=== PATIENT | male | born 1940 | race Caucasian/White ===

== ENCOUNTER → 2020-07-06 08:40 | Outpatient (REF) | payer MEDICARE, SELFPAY ==
[2020-07-06 11:01] LABS: AST(SGOT) 28 U/L (15-37); Alanine Aminotransfer ALT/SGPT 41 U/L (16-61); Cholesterol 153 mg/dL (200); High Density Lipoprotein 62 mg/dL; Triglycerides 62 mg/dL; Very Low Density Lipoprotein 12 mg/dL (5-40)
== END ==
LOC: OLS.BROOKB 08:40
PROVIDERS: PCP Family Medicine; Referring Provider Family Medicine; Visit Provider Family Medicine
DX: E78.5 Hyperlipidemia, unspecified (principal)
CPT/HCPCS: 80061; 84450; 84460

== ENCOUNTER → 2020-09-23 06:00 | Outpatient (REF) | payer MEDICARE, BC, SELFPAY ==
[2020-09-23 08:40] LABS: Hematocrit 47.8 % (40-54); Hemoglobin 14.8 g/dL (13.0-16.5); Mean Corpuscular Volume 96.8 fL (80-94); Mean Platelet Vol. 9.6 fl (6.2-12.0); Platelet Count 217 K/mm3 (150-450); RBC Distribution Width CV 13.3 % (11.6-14.6); RBC Distribution Width SD 47.6 fl (35.1-43.9); Red Blood Count 4.94 M/mm3 (4.6-6.2); White Blood Count 7.7 K/mm3 (4.4-11.0)
[2020-09-23 09:22] LABS: ALB/GLOB Ratio 1.1 RATIO (0.9-2.4); AST(SGOT) 26 U/L (15-37); Alanine Aminotransfer ALT/SGPT 47 U/L (16-61); Albumin, Serum 3.8 g/dL (3.2-5.0); Alkaline Phosphatase 84 U/L (45-117); Anion Gap 4 (5-15); BUN 16 mg/dL (7-18); BUN/Creat Ratio 16.8 RATIO (10-20); Calcium,Total 8.6 mg/dL (8.5-10.1); Chloride 108 mmol/L (98-107); Creatinine, Serum 0.95 mg/dL (0.70-1.30); EST Glomerular Filtration Rate 81 mL/min (>60); Est Glom Filt Rate - Afr Amer 98 mL/min (>60); Globulin 3.4 g/dL (2.2-4.2); Glucose 90 mg/dL (74-106); Potassium 3.4 mmol/L (3.5-5.1); Protein, Total 7.2 g/dL (6.4-8.2); Sodium Level 146 mmol/L (136-145); Thyroid Stim Hormone (TSH) 2.05 uIU/mL (0.358-3.74)
== END ==
LOC: OLS.BROOKB 06:00
PROVIDERS: PCP Family Medicine; Referring Provider Family Medicine; Visit Provider Family Medicine
DX: R63.4 Abnormal weight loss (principal); Z79.899 Other long term (current) drug therapy
CPT/HCPCS: 36415; 80053; 84443; 85027

== ENCOUNTER → 2020-11-18 12:48 | Outpatient (REF) | payer MEDICARE, BC, SELFPAY | PROVIDERS: PCP Family Medicine; Visit Provider Family Medicine | DX: S61.401A Unspecified open wound of right hand, initial encounter (principal) | CPT/HCPCS: 87070; 87077; 87186; 87205 ==

== ENCOUNTER → 2021-04-01 06:00 | Outpatient (REF) | payer MEDICARE, BC, SELFPAY ==
[2021-04-01 07:52] LABS: Hematocrit 42.6 % (40-54); Hemoglobin 13.5 g/dL (13.0-16.5); Mean Corp Hgb Conc 31.7 g/dL (32-36); Mean Corpuscular Hgb 30.1 pg (27.0-32.0); Mean Corpuscular Volume 94.9 fL (80-94); Mean Platelet Vol. 9.6 fl (6.2-12.0); Platelet Count 155 K/mm3 (150-450); RBC Distribution Width CV 13.9 % (11.6-14.6); RBC Distribution Width SD 48.3 fl (35.1-43.9); Red Blood Count 4.49 M/mm3 (4.6-6.2); White Blood Count 6.9 K/mm3 (4.4-11.0)
[2021-04-01 08:16] LABS: Valproic Acid (Depakene) Level 12 ug/mL (50-100)
== END ==
LOC: OLS.BROOKB 06:00
PROVIDERS: PCP Family Medicine; Referring Provider Family Medicine; Visit Provider Family Medicine
DX: Z79.899 Other long term (current) drug therapy (principal)
CPT/HCPCS: 36415; 80164; 85027

== ENCOUNTER → 2021-04-21 05:00 | Outpatient (REF) | payer MEDICARE, BC, SELFPAY ==
[2021-04-21 09:00] LABS: Hematocrit 41.1 % (40-54); Hemoglobin 13.2 g/dL (13.0-16.5); Mean Corp Hgb Conc 32.1 g/dL (32-36); Mean Corpuscular Hgb 30.1 pg (27.0-32.0); Mean Corpuscular Volume 93.6 fL (80-94); Mean Platelet Vol. 9.9 fl (6.2-12.0); Platelet Count 209 K/mm3 (150-450); RBC Distribution Width CV 13.5 % (11.6-14.6); RBC Distribution Width SD 46.7 fl (35.1-43.9); Red Blood Count 4.39 M/mm3 (4.6-6.2); White Blood Count 5.7 K/mm3 (4.4-11.0)
[2021-04-21 09:13] LABS: Valproic Acid (Depakene) Level 13 ug/mL (50-100)
[2021-04-21 09:14] LABS: ALB/GLOB Ratio 1.1 RATIO (0.9-2.4); AST(SGOT) 24 U/L (15-37); Alanine Aminotransfer ALT/SGPT 37 U/L (16-61); Albumin, Serum 3.3 g/dL (3.2-5.0); Alkaline Phosphatase 125 U/L (45-117); Anion Gap 8 (5-15); BUN 18 mg/dL (7-18); BUN/Creat Ratio 21.9 RATIO (10-20); Calcium,Total 8.4 mg/dL (8.5-10.1); Chloride 106 mmol/L (98-107); Creatinine, Serum 0.82 mg/dL (0.70-1.30); EST Glomerular Filtration Rate 96 mL/min (>60); Est Glom Filt Rate - Afr Amer 116 mL/min (>60); Glucose 89 mg/dL (74-106); Potassium 3.7 mmol/L (3.5-5.1); Protein, Total 6.3 g/dL (6.4-8.2); Sodium Level 144 mmol/L (136-145)
== END ==
LOC: OLS.BROOKB 05:00
PROVIDERS: PCP Family Medicine
DX: I10 Essential (primary) hypertension (principal); Z79.899 Other long term (current) drug therapy
CPT/HCPCS: 36415; 80053; 80164; 85027

== ENCOUNTER 2021-06-06 19:56 | Inpatient (IN) | payer MEDICARE, BC, SELFPAY ==
[2021-06-06 20:03] VITALS: BP 133/87; PULSE 115; RESP 27; TEMP 36.9; O2SAT 98; BMI 20.4
[2021-06-06 20:09] VITALS: BP 133/87; PULSE 111; RESP 14; TEMP 36.9; O2SAT 96
--- NOTE | 2021-06-06 20:39 | RAD_ITS ---
INDICATION: Cough EXAMINATION/TECHNIQUE: X-RAY - XR Chest 1 View COMPARISON: None. FINDINGS: The lungs are clear. Tortuous and calcified thoracic aorta. The heart is not enlarged. No pleural effusion or pneumothorax. Degenerative changes of the thoracic spine and shoulders. RAD/Chest 1 View (Portable) IMPRESSION: No acute radiographic abnormalities. Electronically Signed: Cristian Leung MD at 21:19 EDT Tel , Service support ,
--- NOTE | 2021-06-06 20:39 | EKG12_ITS ---
Test Reason : DYSRHYTHMIA Blood Pressure : / mmHG Vent. Rate : 095 BPM Atrial Rate : 096 BPM P-R Int : 116 ms QRS Dur : 084 ms QT Int : 366 ms P-R-T Axes : 027 074 027 degrees QTc Int : 459 ms Normal sinus rhythm ST & T wave abnormality, consider inferior ischemia Abnormal ECG Confirmed by TSERING MARTINEZ, RUBEN ([id number]), desk editor RYLEE FERRERA ([id number]) on 06/09/2021 10:26:43 AM Referred By: JUNIOR Confirmed By:RUBEN CAGLE MD
--- NOTE | 2021-06-06 20:42 | NURSING ---
NO OLD EKGS
[2021-06-06 20:53] LABS: Absolute Lymphocyte Count 1.88 X10^3/uL (0.83-4.51); Absolute Neutrophil Count 14.2 X10^3/uL (2.0-7.7); Basophil# 0.07 X10^3/uL; Basophil% 0.4 % (0-1); Eosinophil# 0.02 X10^3/uL; Eosinophils% 0.1 % (0-5); Hematocrit 52.9 % (40-54); Hemoglobin 16.2 g/dL (13.0-16.5); Lymphocyte # 1.88 X10^3/ul (0.83-4.51); Lymphocyte % 10.9 % (19-41); Mean Corp Hgb Conc 30.6 g/dL (32-36); Mean Corpuscular Hgb 30.2 pg (27.0-32.0); Mean Corpuscular Volume 98.5 fL (80-94); Mean Platelet Vol. 9.8 fl (6.2-12.0); Monocyte# 1.01 X10^3/uL; Monocyte% 5.9 % (0-10); NRBC Flagged by Analyzer 0 % (0-5); Neutrophil # 14.15 X10^3/uL (2.7-7.7); Neutrophil % 82.1 % (47-70); Platelet Count 397 K/mm3 (150-450); RBC Distribution Width CV 13.5 % (11.6-14.6); RBC Distribution Width SD 49.7 fl (35.1-43.9); Red Blood Count 5.37 M/mm3 (4.6-6.2); White Blood Count 17.2 K/mm3 (4.4-11.0)
[2021-06-06] MEDS: 0.9% Normal Saline 1,000 ML 1000 ML IV (21:00)
[2021-06-06 21:08] LABS: ALB/GLOB Ratio 0.6 RATIO (0.9-2.4); AST(SGOT) 19 U/L (15-37); Alanine Aminotransfer ALT/SGPT 26 U/L (16-61); Alkaline Phosphatase 99 U/L (45-117); Anion Gap 2 (5-15); BUN 33 mg/dL (7-18); BUN/Creat Ratio 23.4 RATIO (10-20); Calcium,Total 9.3 mg/dL (8.5-10.1); Chloride 121 mmol/L (98-107); Creatinine, Serum 1.41 mg/dL (0.70-1.30); EST Glomerular Filtration Rate 51 mL/min (>60); Est Glom Filt Rate - Afr Amer 62 mL/min (>60); Estimated Creatinine Clearance 40.31 ml/min; Globulin 4.8 g/dL (2.2-4.2); Glucose 117 mg/dL (74-106); Protein, Total 7.8 g/dL (6.4-8.2); Sodium Level 156 mmol/L (136-145)
[2021-06-06 21:25] VITALS: BP 130/94; PULSE 91; RESP 17; TEMP 37.6; O2SAT 94
[2021-06-06 21:40] LABS: Lactic Acid 1.6 mmol/L (0.4-1.9)
[2021-06-06 22:10] VITALS: BP 147/95; PULSE 101; PULSE 88; RESP 13; RESP 16; TEMP 37.4; O2SAT 95
[2021-06-06 22:14] LABS: Mucous, Urine 0 SEEN /hpf (<or=2+); Red Blood Cells-Urine 0 SEEN /hpf (0-5); Squamous Epithelial Cells - UA 0 SEEN /hpf (0-5)
--- NOTE | 2021-06-06 22:14 | ED.RN ---
NOT ABLE TO GET CATH PAST THE PROSTATE SO COUDE USED INSTEAD -- TEMP [facility] WILL NOT FUNCTION FOR TEMP MONITORING FOR THIS REASON.
[2021-06-06 22:21] LABS: Color, Urine Yellow (Yellow); Glucose, Dipstick Normal (Normal); Ketone-Dipstick 5 mg/dl (Negative); Leukocyte Esterase-Dipstick 500 /ul (Negative); Nitrite-Dipstick Positive (Negative); Occult Blood-Urine 150 /ul (Negative); Protein-Dipstick 30 mg/dl (Negative); Urine Bilirubin Dipstick Negative (Negative); Urine Clarity Cloudy (Clear); Urine Urobilinogen Normal (Normal)
--- NOTE | 2021-06-06 22:25 | EDS_ITS ---
HPI History of Present Illness Chief Complaint: Mental Status Change Informant: family Limited: dementia and stupor Onset/Context/Timing Onset: Days Context: Gradual Onset Timing: Continuous Quality: Decreased alertness, no p.o. intake Location: Nursing facility Current Severity: Severe Maximum Severity: Severe Narrative Narrative: According to the son he has not anything to eat in 3 days. His mental status has deteriorated. He does have mild memory impairment. He also has history of depression and allergic rhinitis. Based on medication he has hypercholesterolemia. Patient is unable to contribute with regards to his history. He is nonverbal. He will open his eyes. When son asked questions he did know his name. He did not know the date, month or year. Son states his memory impairment is more than just mild. Prior similar symptoms: No Recent Illness/Hospitalization: No PFSH [facility] Medical History Cognitive and behavioral changes Dysthymic disorder GERD (gastroesophageal reflux disease) Hypertension Home Medications acetylcysteine (bulk) [E-Aelbki-I-Cysteine] ea MISCELLANEOUS 06/06/21 [History Last Taken Unknown] atorvastatin 20 mg DAILY 06/06/21 [History Last Taken Unknown] divalproex 125 mg PO BID 06/06/21 [History Last Taken Unknown] donepezil 10 mg DAILY 06/06/21 [History Last Taken Unknown] finasteride 5 mg DAILY 06/06/21 [History Last Taken Unknown] hydroxyzine pamoate 25 mg PO BID PRN 06/06/21 [History Last Taken Unknown] loratadine 10 mg PO DAILY PRN 06/06/21 [History Last Taken Unknown] losartan 25 mg DAILY 06/06/21 [History Last Taken Unknown] melatonin 8 mg PO DAILY 06/06/21 [History Last Taken Unknown] mirtazapine 15 mg DAILY 06/06/21 [History Last Taken Unknown] oxybutynin chloride 5 mg PO DAILY 06/06/21 [History Last Taken Unknown] sertraline 150 mg DAILY 06/06/21 [History Last Taken Unknown] Allergy/AdvReac Type Severity Reaction Status Date / Time memantine [From Namenda] Allergy Other Verified 06/06/21 20:14 mushroom Allergy Other Verified 06/06/21 20:14 rivastigmine [From Exelon] Allergy Other Verified 06/06/21 20:14 unable to obtain Social History (Updated 06/06/21 @ 23:[address] Darien Flores MD) household members: other details: Nursing facility Smoking Status: Never smoker alcohol intake: former substance use type: does not use ROS ROS ED Review of Systems ROS Unobtainable: due to encephalopathy EXAM Physical Exam Const Vital Signs: 06/06/21 20:03 06/06/21 20:09 06/06/21 21:25 Temperature 98.4 F 98.4 F 99.6 F H Temperature Source Oral Temporal Oral Pulse Rate 115 H 111 H 91 Respiratory Rate 27 H 14 17 Blood Pressure 133/87 H 133/87 H 130/94 H Blood Pressure Mean 102 102 106 Pulse Ox 98 96 94 Oxygen Delivery Method Room Air Room Air Room Air 06/06/21 22:10 Temperature 99.4 F H Temperature Source Oral Pulse Rate 88 Respiratory Rate 16 Blood Pressure 147/95 H Blood Pressure Mean 112 Pulse Ox 95 Oxygen Delivery Method Room Air Positive well developed, cachectic and unkempt General Appearance ED: unkempt, well developed, cachectic and NAD Nutritional Appearance: cachectic HEENT Reports TM's clear and dry mucous membranes HEENT Narrative: Head is atraumatic normocephalic. Ears are normal. Nares patent. Posterior pharynx unremarkable. Tympanic Membrane ED: Yes TM's clear Mouth ED: Yes dry mucous membranes Mouth: dry mucous membranes Eyes PERRL and EOMs intact bilaterally General Eye ED: Negative for pale conjunctiva or scleral icterus Neck no lymphadenopathy, supple and no JVD Chest Wall inspection of chest normal Resp normal respiratory effort and clear to auscultation bilaterally Cardio regular rate, regular rhythm, S1 normal heart sound, S2 normal heart sound and no murmurs GI normal to inspection, nondistended, normoactive bowel sounds, non-tender and non-distended Palpation: soft Narrative: External genitalia appear normal. Back/Spine no CVA tenderness Cervical Spine: Negative for cervical spine tenderness Thoracic Spine / Upper Back: Negative for thoracic spinal tenderness or paraspinal muscle tenderness Extremity normal to inspection General Extremety ED: Negative for edema General Extremity: Negative for edema Neuro No oriented x3, CN's II-XII intact bilaterally and no sensory deficits noted Sensorium / Orientation: Negative for alert Motor Exam: strength 5/5 throughout Psych Negative for mental status grossly normal Psych Narrative: Depressed mental status Appearance: unkempt Skin no rashes or lesions noted and no wounds MDM MDM MDM Narrative Medical decision making narrative: Need to evaluate for metabolic versus infectious encephalopathy. Clinically patient is profoundly dehydrated. If there is no evidence of metabolic or infectious cephalopathy will obtain CT of the head. Lab Data Attestation: I reviewed the patient's lab results. Lab results narrative: White count is elevated with shift. Lactate is normal. Patient does have 2 sirs criteria. He has sepsis due to urinary tract infection. He also was profoundly dehydrated with a sodium of 156 and chloride of 121. Creatinine is elevated from baseline to 1.41 which is double normal creatinine or past creatinine. Patient was treated with IV Rocephin. He was given IV fluids. He will require admission. Labs: Laboratory Results - last 24 hr 06/06/21 06/06/21 06/06/21 20:10 20:10 20:57 WBC 17.2 H RBC 5.37 Hgb 16.2 Hct 52.9 MCV 98.5 H MCH 30.2 MCHC 30.6 L RDW Std Deviation 49.7 H RDW Coeff of Katey 13.5 Plt Count 397 MPV 9.8 Immature Gran % (Auto) 0.600 Neut % (Auto) 82.1 H Lymph % (Auto) 10.9 L [place] % (Auto) 5.9 Eos % (Auto) 0.1 Baso % (Auto) 0.4 Absolute Neuts (auto) 14.2 H Absolute Lymphs (auto) 1.88 Nucleated RBC % 0 Sodium 156 H Potassium 4.0 Chloride 121 H Carbon Dioxide 33.0 H Anion Gap 2 L BUN 33 H Creatinine 1.41 H Estim Creat Clear Calc 40.31 Est GFR (MDRD) Af Amer 62 Est GFR (MDRD) Non-Af 51 L BUN/Creatinine Ratio 23.4 H Glucose 117 H Lactic Acid 1.6 Calcium 9.3 Total Bilirubin 0.60 AST 19 ALT 26 Alkaline Phosphatase 99 Total Protein 7.8 Albumin 3.0 L Globulin 4.8 H Albumin/Globulin Ratio 0.6 L Urine Color Urine Clarity Urine pH Ur Specific [place] Urine Protein Urine Glucose (UA) Urine Ketones Urine Occult Blood Urine Nitrite Urine Bilirubin Urine Urobilinogen Ur Leukocyte Esterase Urine RBC Urine WBC Ur Squamous Epith Cells Urine Bacteria Urine Mucus 06/06/21 22:06 WBC RBC Hgb Hct MCV MCH MCHC RDW Std Deviation RDW Coeff of Katey Plt Count MPV Immature Gran % (Auto) Neut % (Auto) Lymph % (Auto) [place] % (Auto) Eos % (Auto) Baso % (Auto) Absolute Neuts (auto) Absolute Lymphs (auto) Nucleated RBC % Sodium Potassium Chloride Carbon Dioxide Anion Gap BUN Creatinine Estim Creat Clear Calc Est GFR (MDRD) Af Amer Est GFR (MDRD) Non-Af BUN/Creatinine Ratio Glucose Lactic Acid Calcium Total Bilirubin AST ALT Alkaline Phosphatase Total Protein Albumin Globulin Albumin/Globulin Ratio Urine Color Yellow Urine Clarity Cloudy Urine pH 5.0 Ur Specific [place] 1.020 Urine Protein 30 H Urine Glucose (UA) Normal Urine Ketones 5 H Urine Occult Blood 150 H Urine Nitrite Positive H Urine Bilirubin Negative Urine Urobilinogen Normal Ur Leukocyte Esterase 500 H Urine RBC 0 SEEN Urine WBC 25-50 SEEN Ur Squamous Epith Cells 0 SEEN Urine Bacteria 1+ Urine Mucus 0 SEEN Radiography Chest X-Ray - ED: Read by ED Physician, Heart, Mediastinum, Bony Structures and Chronic Changes Diagnostic Testing: Radiology Impression Chest X-Ray 06/06/21 20:39 IMPRESSION: No acute radiographic abnormalities. Electronically Signed: Cristian Leung MD at 21:19 EDT Tel , Service support , EKG Initial EKG: Attestation: I personally reviewed and interpreted this EKG as follows: Interpretation: Sinus Rhythm (Normal sinus rhythm with ventricular rate of 95. NE interval is 116 ms. Cures duration 84 ms. QT duration 366 ms. [place] is normal. There is nonspecific ST-T wave changes. There is also artifact.) Discharge Plan Dx/Rx/DC Orders Clinical Impression: Infectious encephalopathy, Acute metabolic encephalopathy, Urinary tract infection, Sepsis, Acute hypernatremia Disposition Disposition: Acute Care Hospital [facility]
[2021-06-06 22:34] LABS: White Blood Cells 25-50 SEEN /hpf (0-5)
[2021-06-06 22:35] LABS: Bacteria 1+ /hpf (None Seen)
[2021-06-06] MEDS: Ceftriaxone 1 GM/50 ML BAG IV (23:52)
[2021-06-06 23:53] VITALS: BP 153/62; PULSE 79; RESP 13; TEMP 37.2; O2SAT 97
--- NOTE | 2021-06-06 23:59 | HP.PCM_ITS ---
Documented by User: MICHELL Silva 06/07/21 00:51 HPI - General General Date of Admission: 06/07/21 Date of Service: 06/07/21 Chief Complaint: Weakness, increased confusion HPI Narrative JOAN CANALES, is a 80 M who presents with concerns of increased confusion and weakness. Patient son at bedside states patient has advanced age Alzheimer's but has been acting odd for him and has had a shuffling gait for the past couple days. Patient son is also concerned as patient has not had any p.o. intake of food or fluids. Son reports patient has lost a considerable amount of weight over the past 6 months but over the past 3 days has had no intake at all. Patient unable to contribute to health history or report current symptoms. [facility] Medical History Cognitive and behavioral changes Dysthymic disorder GERD (gastroesophageal reflux disease) Hypertension Home Medications acetylcysteine (bulk) [V-Pqaphb-B-Cysteine] ea MISCELLANEOUS 06/06/21 [History Last Taken Unknown] atorvastatin 20 mg DAILY 06/06/21 [History Last Taken Unknown] divalproex 125 mg PO BID 06/06/21 [History Last Taken Unknown] donepezil 10 mg DAILY 06/06/21 [History Last Taken Unknown] finasteride 5 mg DAILY 06/06/21 [History Last Taken Unknown] hydroxyzine pamoate 25 mg PO BID PRN 06/06/21 [History Last Taken Unknown] loratadine 10 mg PO DAILY PRN 06/06/21 [History Last Taken Unknown] losartan 25 mg DAILY 06/06/21 [History Last Taken Unknown] melatonin 8 mg PO DAILY 06/06/21 [History Last Taken Unknown] mirtazapine 15 mg DAILY 06/06/21 [History Last Taken Unknown] oxybutynin chloride 5 mg PO DAILY 06/06/21 [History Last Taken Unknown] sertraline 150 mg DAILY 06/06/21 [History Last Taken Unknown] Allergy/AdvReac Type Severity Reaction Status Date / Time memantine [From Namenda] Allergy Other Verified 06/06/21 20:14 mushroom Allergy Other Verified 06/06/21 20:14 rivastigmine [From Exelon] Allergy Other Verified 06/06/21 20:14 dairy AdvReac Other Uncoded 06/07/21 00:45 Social History household members: other details: Nursing facility Smoking Status: Never smoker alcohol intake: former substance use type: does not use ROS Review of Systems ROS Unobtainable: due to mental status Vital Signs Vital Signs Vital Signs: 06/06/21 20:03 06/06/21 20:09 06/06/21 21:25 Temperature 98.4 F 98.4 F 99.6 F H Temperature Source Oral Temporal Oral Pulse Rate 115 H 111 H 91 Respiratory Rate 27 H 14 17 Blood Pressure 133/87 H 133/87 H 130/94 H Blood Pressure Mean 102 102 106 Pulse Ox 98 96 94 Oxygen Delivery Method Room Air Room Air Room Air 06/06/21 22:10 Temperature 99.4 F H Temperature Source Oral Pulse Rate 88 Respiratory Rate 16 Blood Pressure 147/95 H Blood Pressure Mean 112 Pulse Ox 95 Oxygen Delivery Method Room Air Weight Weight: 150 lb 5.684 oz Body Mass Index (BMI) 20.4 Physical Exam Const no apparent distress Orientation / Consciousness: awake and oriented to person Exam Limitations: altered mental status HEENT normocephalic and head/scalp atraumatic Eyes conjunctivae normal and no scleral icterus Neck supple and no JVD General: trachea midline Resp normal respiratory effort, normal air movement and clear to auscultation bilaterally Cardio regular rate, regular rhythm, S1 normal heart sound, S2 normal heart sound and peripheral pulses 2+ throughout Rate: tachycardic GI normal to inspection, nondistended, normoactive bowel sounds, soft to palpation and non-tender Extremity normal capillary refill and no clubbing, cyanosis or edema General Extremity: no tenderness to palpation of joints or extremities Skin General Skin Exam: no breakdown and turgor normal Lesions: no lesions Rashes: no rashes Neuro no focal motor deficits and no sensory deficits noted Speech: speech abnormal Details: Positive for stuttering Motor Exam: general weakness Psych cooperative Activity / Motor Behavior: fidgetting Thought Process: confused Memory / Cognition: dementia Results Lab / Micro Data Result Diagrams: 06/06/21 20:10 06/06/21 20:10 Labs: Laboratory Results - last 24 hr 06/06/21 20:10: WBC 17.2 H, RBC 5.37, Hgb 16.2, Hct 52.9, MCV 98.5 H, MCH 30.2, MCHC 30.6 L, RDW Std Deviation 49.7 H, RDW Coeff of Katey 13.5, Plt Count 397, MPV 9.8, Immature Gran % (Auto) 0.600, Neut % (Auto) 82.1 H, Lymph % (Auto) 10.9 L, [place] % (Auto) 5.9, Eos % (Auto) 0.1, Baso % (Auto) 0.4, Absolute Neuts (auto) 14.2 H, Absolute Lymphs (auto) 1.88, Nucleated RBC % 0 06/06/21 20:10: Sodium 156 H, Potassium 4.0, Chloride 121 H, Carbon Dioxide 33.0 H, Anion Gap 2 L, BUN 33 H, Creatinine 1.41 H, Estim Creat Clear Calc 40.31, Est GFR (MDRD) Af Amer 62, Est GFR (MDRD) Non-Af 51 L, BUN/Creatinine Ratio 23.4 H, Glucose 117 H, Calcium 9.3, Total Bilirubin 0.60, AST 19, ALT 26, Alkaline Phosphatase 99, Total Protein 7.8, Albumin 3.0 L, Globulin 4.8 H, Albumin/Globulin Ratio 0.6 L 06/06/21 20:57: Lactic Acid 1.6 06/06/21 22:06: Urine Color Yellow, Urine Clarity Cloudy, Urine pH 5.0, Ur Specific [place] 1.020, Urine Protein 30 H, Urine Glucose (UA) Normal, Urine Ketones 5 H, Urine Occult Blood 150 H, Urine Nitrite Positive H, Urine Bilirubin Negative, Urine Urobilinogen Normal, Ur Leukocyte Esterase 500 H, Urine RBC 0 SEEN, Urine WBC 25-50 SEEN, Ur Squamous Epith Cells 0 SEEN, Urine Bacteria 1+, Urine Mucus 0 SEEN Radiology Impression Chest X-Ray 06/06/21 20:39 IMPRESSION: No acute radiographic abnormalities. Electronically Signed: Cristian Leung MD at 21:19 EDT Tel , Service support , Assessment & Plan Assessment/Plan (1) Urinary tract infection: QUALIFIERS: Hematuria presence: without hematuria Urinary tract infection type: site unspecified Qualified Code(s): N39.0 - Urinary tract infection, site not specified (2) Infectious encephalopathy: (3) Acute hypernatremia: (4) Sepsis: QUALIFIERS: Sepsis acute organ dysfunction status: unspecified Sepsis type: sepsis due to unspecified organism Qualified Code(s): A41.9 - Sepsis, unspecified organism PLAN: 1. Sepsis secondary to urinary tract infection -Admit to medical surgical -Patient received 1 L bolus in ER. will give second liter of normal saline then normal saline at 100 ml/hr. -Continue Rocephin patient received first dose in ER -CBC and BMP ordered daily -Urine culture pending -Intake and output ordered -PT, OT, ST ordered 2. Infectious encephalopathy -Due to patient son reporting difficulty swallowing we will keep patient n.p.o. -AC at bedtime blood sugar checks to monitor for hypoglycemia 3. Acute hypernatremia -Likely secondary to dehydration from urinary tract infection and decreased intake. -Will provide patient with IV fluid resuscitation per sepsis protocol and repeat BMP in a.m. 4. Hypertension -Continue losartan 5. Alzheimer's disease -Will continue home medication regimen -Per son report patient cognitively at baseline however motor function difficulty is abnormal for him. DVT prophylaxis-subcu Lovenox and SCDs This patient was seen by MICHELL Silva under the supervision of Dr. Brito. Documented by User: Dr. Jose G Brito MD 06/07/21 01:03 HPI - General General Date of Admission: 06/07/21 [facility] Medical History Cognitive and behavioral changes Dysthymic disorder GERD (gastroesophageal reflux disease) Hypertension Home Medications acetylcysteine (bulk) [K-Jzxmiz-C-Cysteine] ea MISCELLANEOUS 06/06/21 [History Last Taken Unknown] atorvastatin 20 mg DAILY 06/06/21 [History Last Taken Unknown] divalproex 125 mg PO BID 06/06/21 [History Last Taken Unknown] donepezil 10 mg DAILY 06/06/21 [History Last Taken Unknown] finasteride 5 mg DAILY 06/06/21 [History Last Taken Unknown] hydroxyzine pamoate 25 mg PO BID PRN 06/06/21 [History Last Taken Unknown] loratadine 10 mg PO DAILY PRN 06/06/21 [History Last Taken Unknown] losartan 25 mg DAILY 06/06/21 [History Last Taken Unknown] melatonin 8 mg PO DAILY 06/06/21 [History Last Taken Unknown] mirtazapine 15 mg DAILY 06/06/21 [History Last Taken Unknown] oxybutynin chloride 5 mg PO DAILY 06/06/21 [History Last Taken Unknown] sertraline 150 mg DAILY 06/06/21 [History Last Taken Unknown] Allergy/AdvReac Type Severity Reaction Status Date / Time memantine [From Namenda] Allergy Other Verified 06/06/21 20:14 mushroom Allergy Other Verified 06/06/21 20:14 rivastigmine [From Exelon] Allergy Other Verified 06/06/21 20:14 dairy AdvReac Other Uncoded 06/07/21 00:45 Social History household members: other details: Nursing facility Smoking Status: Never smoker alcohol intake: former substance use type: does not use Results Lab / Micro Data Result Diagrams: 06/06/21 20:10 06/06/21 20:10 Charges/Coding Addendum Addendum: Patient was seen and examined independently. I agree with assessment and plan by Mayra Morillo NP-C An 80-year-old male who lives at [facility] who presented with a 3-day history of not eating and lethargy. Reportedly patient has not been eating for the past 3 days. At baseline he has Alzheimer's dementia but mobile and jovial. However in the past 3 days patient's has not been interactive and he has stayed in bed all day. Physical exam: General: Well-nourished, well-developed, no acute distress Head: Normocephalic, atraumatic, no tenderness Eyes: PERRLA, EOMI ENT, no trauma, moist mucous membranes, no rhinorrhea Neck: Nontender, full range of motion, no spinal tenderness, deformities, step- off CVS: Regular rate and rhythm Respiratory no acute distress, clear to auscultation bilaterally, chest wall nontender, no wheezing Abdomen: Soft, nontender, nondistended, normal bowel sounds, no masses : Deferred Back: Nontender, no CVA tenderness, no midline spinal tenderness, deformities, step-offs Extremities: Nontender full range of motion, no trauma Skin: Normal color, no trauma, abrasions Neuro: Alert, confused; cranial nerves II through XII grossly intact. Psychiatry: Normal mood. Normal affect. Not depressed. Not anxious. Acute cystitis Patient met SIRS criteria with heart rate of more than 90; white count of 17.2. QSOFA is 1 for increased encephalopathy more than baseline. Lactic acid is less than 2. Urinalysis showed proteinuria; urine occult blood; nitrite and leukocyte Estrace. Urine bacteria is 1+. Review of previous records did not show any urine culture. Urine culture was obtained at the emergency department; follow. Ceftriaxone was started at the emergency department and continued. Trend CBC and BMP Acute dehydration Review of labs showed sodium of 156. BUN of 33. Creatinine of 1.41. Will hydrate with isotonic normal saline at this time. Trend BMP. Review of old records shows that his creatinine on 04/21/2021 was 0.82 and on 09/23/2020 creatinine was 0.95. Baseline creatinine around 0.9. BUN over creatinine is 23.4. Likely is prerenal from acute dehydration. IV fluid as above. Trend BMP. Avoid nephrotoxic's. AIDAN receptor ricardo. Hypertension Blood pressure is not within goal Losartan held secondary to POLO. As needed hydralazine ordered. Trend blood pressure and adjust blood pressure medications. DVT prophylaxis Subcutaneous Lovenox ordered. Visit Charges Inpatient E&M: 93172 Init Hosp L3
[2021-06-07] VITALS (8 sets, daily range): BP systolic 122–132; BP diastolic 71–108; PULSE 57–118; RESP 16–18; TEMP 36.4–37.2; O2SAT 94–98; BMI 19.6
[2021-06-07] MEDS: 0.9% Normal Saline 1,000 ML 999 ML IV (01:01)
[2021-06-07] MEDS: 0.9% Normal Saline 1,000 ML 100 ML IV (02:22)
[2021-06-07] MEDS: 0.9% Saline Lock 10 ML Syringe IV (02:48)
[2021-06-07 06:22] LABS: Absolute Lymphocyte Count 1.27 X10^3/uL (0.83-4.51); Absolute Neutrophil Count 11.1 X10^3/uL (2.0-7.7); Basophil# 0.05 X10^3/uL; Basophil% 0.4 % (0-1); Eosinophil# 0.02 X10^3/uL; Eosinophils% 0.1 % (0-5); Hematocrit 48.1 % (40-54); Hemoglobin 14.6 g/dL (13.0-16.5); Lymphocyte # 1.27 X10^3/ul (0.83-4.51); Lymphocyte % 9.5 % (19-41); Mean Corp Hgb Conc 30.4 g/dL (32-36); Mean Corpuscular Hgb 30.4 pg (27.0-32.0); Mean Platelet Vol. 9.6 fl (6.2-12.0); Monocyte# 0.86 X10^3/uL; Monocyte% 6.4 % (0-10); NRBC Flagged by Analyzer 0 % (0-5); Neutrophil # 11.09 X10^3/uL (2.7-7.7); Neutrophil % 83.1 % (47-70); Platelet Count 288 K/mm3 (150-450); RBC Distribution Width CV 13.4 % (11.6-14.6); RBC Distribution Width SD 50.1 fl (35.1-43.9); Red Blood Count 4.81 M/mm3 (4.6-6.2); White Blood Count 13.4 K/mm3 (4.4-11.0)
[2021-06-07 06:45] LABS: Anion Gap 3 (5-15); BUN 30 mg/dL (7-18); BUN/Creat Ratio 28.3 RATIO (10-20); Calcium,Total 8.4 mg/dL (8.5-10.1); Chloride 124 mmol/L (98-107); Creatinine, Serum 1.06 mg/dL (0.70-1.30); EST Glomerular Filtration Rate 71 mL/min (>60); Est Glom Filt Rate - Afr Amer 86 mL/min (>60); Estimated Creatinine Clearance 51.74 ml/min; Glucose 108 mg/dL (74-106); Potassium 3.8 mmol/L (3.5-5.1); Sodium Level 158 mmol/L (136-145)
--- NOTE | 2021-06-07 06:47 | NURSING ---
Blood glucose 108 from morning labs from 545. Did not stick patient for blood sugar, because labs were just drawn.
[2021-06-07 07:46] LABS: Bedside Glucose 101 mg/dL (70-110)
[2021-06-07 10:20] LABS: Anion Gap 2 (5-15); BUN 28 mg/dL (7-18); BUN/Creat Ratio 25.2 RATIO (10-20); Calcium,Total 8.6 mg/dL (8.5-10.1); Chloride 123 mmol/L (98-107); Creatinine, Serum 1.11 mg/dL (0.70-1.30); EST Glomerular Filtration Rate 68 mL/min (>60); Est Glom Filt Rate - Afr Amer 82 mL/min (>60); Estimated Creatinine Clearance 49.41 ml/min; Glucose 125 mg/dL (74-106); Potassium 4.1 mmol/L (3.5-5.1); Sodium Level 156 mmol/L (136-145)
[2021-06-07] MEDS: Sertraline 50 MG Tablet 150 MG PO (10:43)
[2021-06-07] MEDS: Tolterodine Tartrate 2 MG CAP.SA PO (10:44)
[2021-06-07] MEDS: Donepezil HCl 10 MG Tablet 20 MG PO (10:44)
[2021-06-07] MEDS: Finasteride 5 MG Tablet PO (10:45)
[2021-06-07] MEDS: Divalproex Sodium 125 MG Tablet PO ×2 (10:45→20:20)
[2021-06-07] MEDS: Enoxaparin 40 MG/0.4 ML Syringe SC (10:45)
--- NOTE | 2021-06-07 11:18 | CASEMGMT ---
Social Work Note Per electric meter tester questions. Pt has completed HCPOA and LW, haven't provided copies to [facility], and pt is able/unable to bring in copies. Danyelle Michaels INJECTION MAINTENANCE TECHNICIAN, MINE SURVEYOR
--- NOTE | 2021-06-07 11:23 | CASEMGMT ---
Addendum entered by Danyelle Michaels 06/07/21 11:55: SW in to speak with pt and pt's son Vincenzo present in room. Vincenzo confirms pt is from [facility] in their memory care unit. Vincenzo states it depends on pt's needs if pt will be returning to [facility] or if pt needs SNF. Vincenzo then states well the plan will be to return to [facility] while I look for other SNF's if pt needs that level of care. YUKO confirmed with Vincenzo that the plan for pt is to discharge back to [facility] from [facility]. Vincenzo confirms this plan. SW informed Vincenzo that this worker can provide him with list of SNF so Vincenzo can begin looking at SNF and Vincenzo agreeable to taking list. Vincenzo was provided a list of SNF providers including quality and resource use data and consistent with the patient?s preferred geographic region, medical needs, and insurance network. Plan: Return to [facility] Original Note: Social Work Note Pt is listed as being from [facility], is at [facility] for altered mental status. YUKO placed a call to [facility] and spoke with BERNABE Goins. Briseida states pt is in their memory care unit and is able to return when medically cleared. Pt will need a COVID test on day of discharge. YUKO asked Briseida if they have HCPOA/LW on file and could fax copies to this worker. Briseida states she is able to fax copies. YUKO faxed clinicals to [facility]. Plan: Return to [facility] when medically cleared Danyelle Michaels COMMISSARY PRODUCTION SUPERVISOR, CLINICAL INFORMATICS SPECIALIST
[2021-06-07 12:11] LABS: Bedside Glucose 137 mg/dL (70-110)
[2021-06-07 14:40] LABS: Anion Gap 0 (5-15); BUN 27 mg/dL (7-18); Chloride 121 mmol/L (98-107); EST Glomerular Filtration Rate 76 mL/min (>60); Est Glom Filt Rate - Afr Amer 93 mL/min (>60); Estimated Creatinine Clearance 54.85 ml/min; Glucose 112 mg/dL (74-106); Potassium 4.1 mmol/L (3.5-5.1); Sodium Level 154 mmol/L (136-145)
--- NOTE | 2021-06-07 15:16 | PCM.PN.HOSP ---
Subjective Subjective No issues overnight. Patient is lying in bed. I attempted to ask orientation questions to him and when I asked where he was there was a delayed response and he said thank you. Objective Data Objective Data Vital Signs: Vital Signs Temp Pulse Resp BP Pulse Ox 98.0 F 88 18 132/108 H 97 06/07/21 11:20 06/07/21 11:20 06/07/21 11:20 06/07/21 11:20 06/07/21 11:20 Oxygen Delivery Method Room Air Weight: 65.816 kg Body Mass Index (BMI) 19.6 Intake & Output: Intake and Output for Last 24 Hours 06/05/21 06/06/21 06/07/21 23:59 23:59 23:59 Intake Total 2536.67 / 2536.67 Output Total 400 / 400 Balance 2136.67 / 2136.67 Lab / Micro Data Result Diagrams: 06/07/21 05:46 06/07/21 14:20 Labs: Laboratory Results - last 24 hr 06/06/21 20:10: WBC 17.2 H, RBC 5.37, Hgb 16.2, Hct 52.9, MCV 98.5 H, MCH 30.2, MCHC 30.6 L, RDW Std Deviation 49.7 H, RDW Coeff of Katey 13.5, Plt Count 397, MPV 9.8, Immature Gran % (Auto) 0.600, Neut % (Auto) 82.1 H, Lymph % (Auto) 10.9 L, [place] % (Auto) 5.9, Eos % (Auto) 0.1, Baso % (Auto) 0.4, Absolute Neuts (auto) 14.2 H, Absolute Lymphs (auto) 1.88, Nucleated RBC % 0 06/06/21 20:10: Sodium 156 H, Potassium 4.0, Chloride 121 H, Carbon Dioxide 33.0 H, Anion Gap 2 L, BUN 33 H, Creatinine 1.41 H, Estim Creat Clear Calc 40.31, Est GFR (MDRD) Af Amer 62, Est GFR (MDRD) Non-Af 51 L, BUN/Creatinine Ratio 23.4 H, Glucose 117 H, Calcium 9.3, Total Bilirubin 0.60, AST 19, ALT 26, Alkaline Phosphatase 99, Total Protein 7.8, Albumin 3.0 L, Globulin 4.8 H, Albumin/Globulin Ratio 0.6 L 06/06/21 20:57: Lactic Acid 1.6 06/06/21 22:06: Urine Color Yellow, Urine Clarity Cloudy, Urine pH 5.0, Ur Specific [place] 1.020, Urine Protein 30 H, Urine Glucose (UA) Normal, Urine Ketones 5 H, Urine Occult Blood 150 H, Urine Nitrite Positive H, Urine Bilirubin Negative, Urine Urobilinogen Normal, Ur Leukocyte Esterase 500 H, Urine RBC 0 SEEN, Urine WBC 25-50 SEEN, Ur Squamous Epith Cells 0 SEEN, Urine Bacteria 1+, Urine Mucus 0 SEEN 06/07/21 05:46: WBC 13.4 H, RBC 4.81, Hgb 14.6, Hct 48.1, MCV 100.0 H, MCH 30.4, MCHC 30.4 L, RDW Std Deviation 50.1 H, RDW Coeff of Katey 13.4, Plt Count 288, MPV 9.6, Immature Gran % (Auto) 0.500, Neut % (Auto) 83.1 H, Lymph % (Auto) 9.5 L, [place] % (Auto) 6.4, Eos % (Auto) 0.1, Baso % (Auto) 0.4, Absolute Neuts (auto) 11.1 H, Absolute Lymphs (auto) 1.27, Nucleated RBC % 0 06/07/21 05:46: Sodium 158 H, Potassium 3.8, Chloride 124 H, Carbon Dioxide 31.0, Anion Gap 3 L, BUN 30 H, Creatinine 1.06, Estim Creat Clear Calc 51.74, Est GFR (MDRD) Af Amer 86, Est GFR (MDRD) Non-Af 71, BUN/Creatinine Ratio 28.3 H, Glucose 108 H, Calcium 8.4 L 06/07/21 07:38: POC Glucose 101 06/07/21 09:45: Sodium 156 H, Potassium 4.1, Chloride 123 H, Carbon Dioxide 31.0, Anion Gap 2 L, BUN 28 H, Creatinine 1.11, Estim Creat Clear Calc 49.41, Est GFR (MDRD) Af Amer 82, Est GFR (MDRD) Non-Af 68, BUN/Creatinine Ratio 25.2 H, Glucose 125 H, Calcium 8.6 06/07/21 12:04: POC Glucose 137 H 06/07/21 14:20: Sodium 154 H, Potassium 4.1, Chloride 121 H, Carbon Dioxide 33.0 H, Anion Gap 0 L, BUN 27 H, Creatinine 1.00, Estim Creat Clear Calc 54.85, Est GFR (MDRD) Af Amer 93, Est GFR (MDRD) Non-Af 76, BUN/Creatinine Ratio 27.0 H, Glucose 112 H, Calcium 9.0 Radiography Diagnostic Testing: Radiology Impression Chest X-Ray 06/06/21 20:39 IMPRESSION: No acute radiographic abnormalities. Electronically Signed: Cristian Leung MD at 21:19 EDT Tel , Service support , Physical Exam Const Constitutional Narrative: Thin elderly white male with temporal wasting and decreased lean muscle mass lying in bed, awake and interactive but unable to answer questions accurately or sustain conversation Exam Limitations: altered mental status HEENT head/scalp atraumatic HEENT Narrative: Mucous membranes are extremely dry Head and Scalp: normocephalic Mouth: dry mucous membranes Eyes PERRL, EOMs intact bilaterally and conjunctivae normal Neck no lymphadenopathy, supple and no JVD Cardio regular rate, regular rhythm, S1 normal heart sound, no rub, no gallops, no clicks and no JVD; Negative for no murmurs Cardio Narrative: Systolic murmur 3 out of 6 radiates to carotids, soft S2 GI normal to inspection, nondistended, normoactive bowel sounds, soft to palpation, non-tender and non-distended; Negative for hepatosplenomegaly GI Narrative: Thin Extremity no clubbing, cyanosis or edema Extremity Narrative: Significantly decreased lean muscle mass Peripheral Pulses: Yes pulses 2+ throughout Skin no rashes or lesions noted, no wounds, No skin turgor normal, no jaundice, no petechiae and no mottling Skin Narrative: Pale Neuro CN's II-XII intact bilaterally, moves all extremities and no focal motor deficits Neuro Narrative: Oriented only to self, generalized weakness Sensorium / Orientation: awake and alert Psych Psych Narrative: Patient is calm and pleasantly confused Assessment & Plan Assessment/Plan (1) Urinary tract infection: QUALIFIERS: Urinary tract infection type: site unspecified Hematuria presence: without hematuria Qualified Code(s): N39.0 - Urinary tract infection, site not specified (2) Acute metabolic encephalopathy: (3) Acute hypernatremia: PLAN: Acute cystitis/UTI -UA is very suggestive of urinary tract infection -Culture pending -Continue ceftriaxone and narrow antibiotics once sensitivities have resulted POLO -Resolved with hydration Acute hypernatremia/hyperchloremia -Seems consistent with severe acute dehydration -Documentation the patient has not been eating and drinking well -Suspect this is related to his progressive dementia -His overall poor prognostic indicator -IV fluids changed to D5W -BMP every 4 hours and watch rate of decline -Desired change in 24 hours is 12 mEq Hypertension -Continue home losartan Hyperlipidemia -Continue atorvastatin BPH -Continue finasteride -Would recommend discontinuing oxybutynin Depression -Continue home medications Dementia with behavioral disorder -Continue baseline medications -Given weight loss and decreased p.o. intake over the last 6 months we will consult palliative care -At the very least would recommend DNR CCA CODE STATUS -Patient may qualify for hospice depending on the severity of his dementia and his ability to take in p.o. liquid and food -Await palliative care consultation DVT prophylaxis -Continue enoxaparin CODE STATUS -Full code Charges/Coding Visit Charges Inpatient E&M: 63246 Subs Hosp L2
[2021-06-07 16:36] LABS: Bedside Glucose 122 mg/dL (70-110)
[2021-06-07] MEDS: Menthol/Lanolin/Calamine/Znox 113 GM Tube 1 APPLIC TOPICAL ×2 (16:53→20:19)
[2021-06-07 18:42] LABS: Anion Gap 1 (5-15); BUN 26 mg/dL (7-18); BUN/Creat Ratio 28.5 RATIO (10-20); Calcium,Total 8.4 mg/dL (8.5-10.1); Chloride 121 mmol/L (98-107); Creatinine, Serum 0.91 mg/dL (0.70-1.30); EST Glomerular Filtration Rate 85 mL/min (>60); Est Glom Filt Rate - Afr Amer 103 mL/min (>60); Estimated Creatinine Clearance 60.27 ml/min; Glucose 111 mg/dL (74-106); Potassium 3.7 mmol/L (3.5-5.1); Sodium Level 153 mmol/L (136-145)
[2021-06-07] MEDS: Atorvastatin Calcium 20 MG Tablet PO (20:19)
[2021-06-07] MEDS: Mirtazapine 15 MG Tablet PO (20:20)
[2021-06-07] MEDS: Ceftriaxone 1 GM/50 ML BAG IV (20:22)
[2021-06-07 22:32] LABS: Anion Gap 3 (5-15); BUN 22 mg/dL (7-18); BUN/Creat Ratio 25.1 RATIO (10-20); Calcium,Total 8.3 mg/dL (8.5-10.1); Chloride 118 mmol/L (98-107); Creatinine, Serum 0.88 mg/dL (0.70-1.30); EST Glomerular Filtration Rate 89 mL/min (>60); Est Glom Filt Rate - Afr Amer 108 mL/min (>60); Estimated Creatinine Clearance 62.33 ml/min; Glucose 118 mg/dL (74-106); Potassium 3.4 mmol/L (3.5-5.1); Sodium Level 151 mmol/L (136-145)
[2021-06-08 03:55] VITALS: BP 117/65; PULSE 62; RESP 16; TEMP 36.3; O2SAT 100
[2021-06-08 06:51] LABS: Bedside Glucose 100 mg/dL (70-110)
[2021-06-08 07:22] LABS: Absolute Neutrophil Count 7.9 X10^3/uL (2.0-7.7); Basophil# 0.05 X10^3/uL; Basophil% 0.5 % (0-1); Eosinophil# 0.11 X10^3/uL; Eosinophils% 1.1 % (0-5); Hematocrit 44.3 % (40-54); Hemoglobin 13.3 g/dL (13.0-16.5); Lymphocyte % 12.1 % (19-41); Mean Corpuscular Hgb 29.9 pg (27.0-32.0); Mean Corpuscular Volume 99.6 fL (80-94); Mean Platelet Vol. 9.7 fl (6.2-12.0); Monocyte# 0.63 X10^3/uL; Monocyte% 6.3 % (0-10); NRBC Flagged by Analyzer 0 % (0-5); Neutrophil # 7.86 X10^3/uL (2.7-7.7); Neutrophil % 79.2 % (47-70); Platelet Count 258 K/mm3 (150-450); RBC Distribution Width SD 48.3 fl (35.1-43.9); Red Blood Count 4.45 M/mm3 (4.6-6.2); White Blood Count 9.9 K/mm3 (4.4-11.0)
[2021-06-08 07:57] LABS: Anion Gap 0 (5-15); BUN 21 mg/dL (7-18); BUN/Creat Ratio 24.4 RATIO (10-20); Calcium,Total 8.4 mg/dL (8.5-10.1); Chloride 116 mmol/L (98-107); Creatinine, Serum 0.86 mg/dL (0.70-1.30); EST Glomerular Filtration Rate 91 mL/min (>60); Est Glom Filt Rate - Afr Amer 110 mL/min (>60); Estimated Creatinine Clearance 65.79 ml/min; Glucose 99 mg/dL (74-106); Potassium 3.4 mmol/L (3.5-5.1); Sodium Level 149 mmol/L (136-145)
[2021-06-08 08:08] VITALS: O2SAT 95
[2021-06-08 09:05] VITALS: BP 154/99; PULSE 99; RESP 18; TEMP 36.9; O2SAT 97
[2021-06-08] MEDS: Donepezil HCl 10 MG Tablet 20 MG PO (09:14)
[2021-06-08] MEDS: Sertraline 50 MG Tablet 150 MG PO (09:15)
[2021-06-08] MEDS: Divalproex Sodium 125 MG Tablet PO ×2 (09:15→22:23)
[2021-06-08] MEDS: Finasteride 5 MG Tablet PO (09:15)
[2021-06-08] MEDS: Enoxaparin 40 MG/0.4 ML Syringe SC (09:15)
[2021-06-08] MEDS: Menthol/Lanolin/Calamine/Znox 113 GM Tube 1 APPLIC TOPICAL ×2 (09:15→22:20)
[2021-06-08] MEDS: Potassium Chloride Oral Soln 20 MEQ/15 ML UDC 40 MEQ PO (09:56)
[2021-06-08 11:40] LABS: Bedside Glucose 125 mg/dL (70-110)
--- NOTE | 2021-06-08 13:10 | PCM.PN.HOSP ---
Subjective Subjective No issues overnight. His sodium is trending down nicely. Patient denies any issues but is fairly demented at baseline. Objective Data Objective Data Vital Signs: Vital Signs Temp Pulse Resp BP Pulse Ox 98.4 F 99 18 154/99 H 97 06/08/21 09:05 06/08/21 09:05 06/08/21 09:05 06/08/21 09:05 06/08/21 09:05 Oxygen Delivery Method Room Air Weight: 67.9 kg Body Mass Index (BMI) 19.6 Intake & Output: Intake and Output for Last 24 Hours 06/06/21 06/07/21 06/08/21 23:59 23:59 23:59 Intake Total 4195.42 / 4195.42 1860 / 1860 Output Total 950 / 1300 950 / 950 Balance 3245.42 / 2895.42 910 / 910 Lab / Micro Data Result Diagrams: 06/08/21 06:45 06/08/21 06:45 Labs: Laboratory Results - last 24 hr 06/07/21 14:20: Sodium 154 H, Potassium 4.1, Chloride 121 H, Carbon Dioxide 33.0 H, Anion Gap 0 L, BUN 27 H, Creatinine 1.00, Estim Creat Clear Calc 54.85, Est GFR (MDRD) Af Amer 93, Est GFR (MDRD) Non-Af 76, BUN/Creatinine Ratio 27.0 H, Glucose 112 H, Calcium 9.0 06/07/21 16:30: POC Glucose 122 H 06/07/21 17:50: Sodium 153 H, Potassium 3.7, Chloride 121 H, Carbon Dioxide 31.0, Anion Gap 1 L, BUN 26 H, Creatinine 0.91, Estim Creat Clear Calc 60.27, Est GFR (MDRD) Af Amer 103, Est GFR (MDRD) Non-Af 85, BUN/Creatinine Ratio 28.5 H, Glucose 111 H, Calcium 8.4 L 06/07/21 21:50: Sodium 151 H, Potassium 3.4 L, Chloride 118 H, Carbon Dioxide 30.0, Anion Gap 3 L, BUN 22 H, Creatinine 0.88, Estim Creat Clear Calc 62.33, Est GFR (MDRD) Af Amer 108, Est GFR (MDRD) Non-Af 89, BUN/Creatinine Ratio 25.1 H, Glucose 118 H, Calcium 8.3 L 06/08/21 06:26: POC Glucose 100 06/08/21 06:45: WBC 9.9, RBC 4.45 L, Hgb 13.3, Hct 44.3, MCV 99.6 H, MCH 29.9, MCHC 30.0 L, RDW Std Deviation 48.3 H, RDW Coeff of Katey 13.0, Plt Count 258, MPV 9.7, Immature Gran % (Auto) 0.800, Neut % (Auto) 79.2 H, Lymph % (Auto) 12.1 L, [place] % (Auto) 6.3, Eos % (Auto) 1.1, Baso % (Auto) 0.5, Absolute Neuts (auto) 7.9 H, Absolute Lymphs (auto) 1.20, Nucleated RBC % 0 06/08/21 06:45: Sodium 149 H, Potassium 3.4 L, Chloride 116 H, Carbon Dioxide 33.0 H, Anion Gap 0 L, BUN 21 H, Creatinine 0.86, Estim Creat Clear Calc 65.79, Est GFR (MDRD) Af Amer 110, Est GFR (MDRD) Non-Af 91, BUN/Creatinine Ratio 24.4 H, Glucose 99, Calcium 8.4 L 06/08/21 11:22: POC Glucose 125 H Micro: Microbiology 06/06/21 22:06 Urine Catheter - Savage Urine Culture - Preliminary Presumptive E. coli Physical Exam Const no apparent distress Constitutional Narrative: Thin elderly white male with temporal wasting and decreased lean muscle mass lying in bed, awake and interactive but unable to answer questions accurately or sustain conversation, therapy services at the bedside and he is willingly participating without any issues Orientation / Consciousness: awake and oriented to person Exam Limitations: altered mental status HEENT normocephalic and head/scalp atraumatic Head and Scalp: normocephalic Eyes no scleral icterus Neck General: trachea midline Resp normal respiratory effort, normal air movement, no retractions, no use of accessory muscles and clear to auscultation bilaterally Cardio regular rate, regular rhythm, S1 normal heart sound, S2 normal heart sound, no rub, no gallops, no clicks, no JVD and peripheral pulses 2+ throughout; Negative for no murmurs Cardio Narrative: Systolic murmur 3 out of 6 radiates to carotids, soft S2 Rate: tachycardic GI normal to inspection, nondistended, normoactive bowel sounds, soft to palpation, non-tender and non-distended; Negative for hepatosplenomegaly GI Narrative: Thin scaphoid abdomen Extremity normal capillary refill and no clubbing, cyanosis or edema Extremity Narrative: Significantly decreased lean muscle mass General Extremity: no tenderness to palpation of joints or extremities Skin skin turgor normal General Skin Exam: no breakdown and turgor normal Lesions: no lesions Rashes: no rashes Neuro moves all extremities and no focal motor deficits Neuro Narrative: Oriented only to self, generalized weakness Sensorium / Orientation: awake and alert Speech: speech abnormal Details: Positive for stuttering Motor Exam: general weakness Psych cooperative Psych Narrative: Patient is calm and pleasantly confused Activity / Motor Behavior: fidgetting Thought Process: confused Memory / Cognition: dementia Assessment & Plan Assessment/Plan (1) Urinary tract infection: QUALIFIERS: Urinary tract infection type: site unspecified Hematuria presence: without hematuria Qualified Code(s): N39.0 - Urinary tract infection, site not specified (2) Acute metabolic encephalopathy: (3) Acute hypernatremia: PLAN: Acute cystitis/UTI -UA is very suggestive of urinary tract infection -Culture is reporting out presumptive E. coli at this time -Sensitivities still pending -Continue ceftriaxone and narrow antibiotics once sensitivities have resulted POLO -Resolved with hydration Acute hypernatremia/hyperchloremia -Seems consistent with severe acute dehydration -Documentation the patient has not been eating and drinking well -Suspect this is related to his progressive dementia -His overall poor prognostic indicator -Continue D5W and increase to 100 cc/h -Sodium is now 149 from 158 on admission -Rate of drop is appropriate -Repeat BMP in a.m. Hypokalemia -P.o. liquid potassium -Repeat BMP in a.m. -Check a.m. mag level Hypertension -Continue home losartan Hyperlipidemia -Continue atorvastatin BPH -Continue finasteride -Would recommend discontinuing oxybutynin Depression -Continue home medications Dementia with behavioral disorder -Continue baseline medications -Given weight loss and decreased p.o. intake over the last 6 months we will consult palliative care -At the very least would recommend DNR CCA CODE STATUS -Patient may qualify for hospice depending on the severity of his dementia and his ability to take in p.o. liquid and food -Still awaiting palliative care consultation DVT prophylaxis -Continue enoxaparin CODE STATUS -Full code Charges/Coding Visit Charges Inpatient E&M: 53064 Subs Hosp L2
--- NOTE | 2021-06-08 14:08 | CASEMGMT ---
Addendum entered by Danyelle Michaels 06/08/21 15:13: YUKO updated that plan is for pt to admit to TCU with Palliative Care, likely tomorrow. YUKO placed a call to [facility] with TCU and left message of likely discharge tomorrow. SW updated Vincenzo. Addendum entered by Danyelle Michaels 06/08/21 14:38: YUKO updated that pt's family is requesting to speak to this worker. SW in to speak with pt. Pt's son Vincenzo present in room. Vincenzo asked about pt initially going to assisted for short term rehabilitation. Vincenzo states first choice would be [facility] TCU. YUKO informed Vincenzo that this worker will make referral to TCU. Vincenzo states understanding. YUKO placed a call to [facility] with TCU and provided referral. Plan: TCU Original Note: Social Work Note YUKO faxed updated clinicals to [facility]. Plan: Return to [facility] once medically cleared Danyelle Michaels MANAGER CHANNEL, BENCH ASSEMBLER OPERATOR
--- NOTE | 2021-06-08 14:26 | CON.PCM.PA_ITS ---
Assessment & Plan Assessment/Plan (1) Dementia: QUALIFIERS: Dementia type: unspecified type Dementia behavioral disturbance: with behavioral disturbance Qualified Code(s): F03.91 - Unspecified dementia with behavioral disturbance (2) Unintended weight loss: (3) Acute metabolic encephalopathy: (4) Urinary tract infection: QUALIFIERS: Urinary tract infection type: site unspecified Hematuria presence: without hematuria Qualified Code(s): N39.0 - Urinary tract infection, site not specified (5) Acute hypernatremia: PLAN: 80-year-old male with dementia, admitted to the hospital for acute metabolic encephalopathy and UTI, hypernatremia and hyperchloremia, seen today for palliative care consultation secondary to progressive decline in functional status and dementia. 1. Dementia: He appears to be a FAST stage 6e according to information from son and medical record. Had significant weight loss in the past 1 year and is incontinent. Poor oral intake overall. Still ambulatory. Patient is hospice appropriate, did discuss at length with his son. He has decided to have the patient go to [facility] for [facility]hab, then back to [facility] under palliative care, however is fully expecting patient to be admitted to hospice within 6 months to a year. If patient returns to [facility] on hospice, patient would be private pay. Son states patient does have the means, however they would prefer palliative at this time. Will follow patient closely while at [facility]. 2. Unintended weight loss: Likely secondary to #1. Requires frequent cueing for oral intake. I suspect he will decline rapidly and quite possibly end up back in the hospital with dehydration. 3. UTI/acute metabolic encephalopathy/hypernatremia/hyperchloremia: Complicates overall care and management, patient does have a poor prognosis overall and suspected life expectancy of less than 6 months, especially given his rapid decline in the last few months. Thank you for the opportunity to participate in this patient's care, please do not hesitate to contact [facility] with any further questions or concerns. Palliative direct line is [phone]. We will follow up with son. Greater than 50% of F2F visit dedicated to education and counseling of palliative care services vs hospice services, medications, comorbid conditions, potential assistance with management, and plan of care moving forward. Start time: 1426 End time: 1534 HPI Consult Data Date of Consult: 06/08/21 HPI Narrative HPI Narrative: JOAN CANALES, is a 80 M who presented to [facility] 06/06/2021 from [facility] memory care unit with altered mental status and lethargy. Patient has been declining and has not had any oral intake in 3 days. His gait has changed to shuffling and he had been acting more confused than his baseline. Patient has also been losing weight. History of Alzheimer's dementia. His son was concerned so patient brought by squad to the ED for evaluation. Chest x-ray showed nothing acute. Patient did have a leukocytosis at 17,200. Urinalysis consistent with UTI, patient was started on antibiotics and admitted for further evaluation and management. He did have an acute hypernatremia/hyperchloremia, as well as POLO. He was given IV fluids. Urine culture presumptive E. coli. Palliative care consulted due to his overall decline with oral intake, ADLs, mobility, and dementia diagnosis. There is a question whether the patient is hospice appropriate. Today, patient is overall improved. His mentation remains the same. Sodium is down to 149 from 156 over the last 2 days. Chloride of 116 from 124. Home medications for his dementia include donepezil, mirtazapine. Patient seen and evaluated. He is sitting up in the chair taking a few bites of food. It appears his lunch is mechanical soft consistency. Son is present during evaluation and reports patient has been in a group home for approximately 3 years now. He was at a facility in [place], and has been at [facility] in the memory care unit for a year and a half. Patient has been declining significantly over the past year. He is still ambulatory, otherwise has significant deficits. He wanders a lot into other patient's rooms and puts on their clothes and uses their belongings. Patient urinates in the hallways at times. Most of the time, he is incontinent of urine and stool. He wears an attends. Son estimates he eats less than 50% of meals every day, needs frequent cueing for oral intake. Patient can still feed himself. He has been dehydrated multiple times according to the son and has frequent antibiotics due to cellulitis. Son reports he picks scabs and they become infected. Has a history of MRSA. Patient has also lost over 60 pounds in the last 1 year. He has significant muscle atrophy. Son reports patient escaped from [facility] at one point and was found by the police at a bar. There is a history of heavy drinking, mostly bourbon. Patient's of cancer about 4 years ago. Apparently, the son and daughter were unaware of the severity of patient's dementia until right before their mother . She was able to hide most of his confusion from the family. This is why the patient had to go into a facility as his kids were unable to provide 24/7 care to him. No N/V/D. Son reports chronic GERD and belching, sometimes hiccups. No issues with constipation. No history of chronic pain. No shortness of breath or chest pain. No visual changes. No dysuria. Again, does have incontinence but baseline. [facility] Medical History Alcoholism Cognitive and behavioral changes Dysthymic disorder GERD (gastroesophageal reflux disease) Hypertension Home Medications atorvastatin 20 mg PO QHS 06/06/21 [History Last Taken 06/05/21] divalproex 125 mg PO BID 06/06/21 [History Last Taken 06/06/21] donepezil 20 mg PO DAILY 06/06/21 [History Last Taken 06/06/21] finasteride 5 mg PO DAILY 06/06/21 [History Last Taken 06/06/21] hydroxyzine pamoate 25 mg PO BID PRN 06/06/21 [History Last Taken 06/05/21] loratadine 10 mg PO DAILY PRN 06/06/21 [History Last Taken Unknown] losartan 25 mg PO DAILY 06/06/21 [History Last Taken 06/06/21] melatonin 8 mg PO QHS 06/06/21 [History Last Taken 06/05/21] mirtazapine 15 mg PO QHS 06/06/21 [History Last Taken 06/05/21] oxybutynin chloride 5 mg PO DAILY 06/06/21 [History Last Taken 06/06/21] sertraline 150 mg PO DAILY 06/06/21 [History Last Taken 06/06/21] J-Zawtck-I-Cysteine 600 mg PO/SL BID 06/07/21 [History Last Taken 06/06/21] Allergy/AdvReac Type Severity Reaction Status Date / Time memantine [From Namenda] Allergy Other Verified 06/08/21 14:30 mushroom Allergy Other Verified 06/08/21 14:30 rivastigmine [From Exelon] Allergy Other Verified 06/08/21 14:30 dairy AdvReac Other Uncoded 06/08/21 14:30 Social History household members: other details: Nursing facility Smoking Status: Never smoker alcohol intake: former substance use type: does not use ROS ROS Narrative Review of systems otherwise negative from a constitutional, HEENT, respiratory, cardiovascular, GI, genitourinary, musculoskeletal, skin, neurologic, psychiatric and hematologic system unless stated above. Physical Exam Const alert and no apparent distress General Appearance: cooperative Orientation / Consciousness: Negative for oriented to person, oriented to place or oriented to time Nutritional Appearance: cachectic HEENT normocephalic and head/scalp atraumatic Neck supple General: trachea midline Lymph Lymphatic: no lymphadenopathy noted Resp normal respiratory effort and normal air movement Effort and Inspection: able to speak in complete sentences and symmetric chest movement Auscultation: clear to auscultation bilaterally and diminished lung sounds; Negative for rales, rhonchi or wheezes Cardio regular rate, regular rhythm, S1 normal heart sound and S2 normal heart sound Extremity no clubbing, cyanosis or edema Extremity Narrative: Significant muscle atrophy Skin Skin Narrative: There is a dressing to the right forearm. Neuro no focal motor deficits Neuro Narrative: Limited exam secondary to cognitive status. Able to follow some commands but inappropriate responses verbally Psych cooperative Psych Narrative: Impulsive Attitude: calm Memory / Cognition: memory grossly impaired
[2021-06-08 15:00] VITALS: BP 105/52; PULSE 72; RESP 18; TEMP 36.7; O2SAT 96
[2021-06-08 16:50] LABS: Bedside Glucose 112 mg/dL (70-110)
[2021-06-08 20:35] VITALS: BP 143/63; PULSE 55; RESP 18; TEMP 37; O2SAT 98
[2021-06-08] MEDS: Ceftriaxone 1 GM/50 ML BAG IV (22:21)
[2021-06-08] MEDS: Mirtazapine 15 MG Tablet PO (22:24)
[2021-06-08] MEDS: Atorvastatin Calcium 20 MG Tablet PO (22:24)
[2021-06-09 04:40] VITALS: BP 144/78; PULSE 90; RESP 16; TEMP 36.9; O2SAT 97
[2021-06-09 07:17] LABS: Anion Gap 3 (5-15); BUN 11 mg/dL (7-18); BUN/Creat Ratio 16.9 RATIO (10-20); Calcium,Total 7.8 mg/dL (8.5-10.1); Chloride 110 mmol/L (98-107); Creatinine, Serum 0.65 mg/dL (0.70-1.30); EST Glomerular Filtration Rate 125 mL/min (>60); Est Glom Filt Rate - Afr Amer 151 mL/min (>60); Estimated Creatinine Clearance 56.58 ml/min; Glucose 97 mg/dL (74-106); Potassium 3.3 mmol/L (3.5-5.1); Sodium Level 143 mmol/L (136-145)
[2021-06-09 07:43] VITALS: O2SAT 96
[2021-06-09 08:59] VITALS: BP 104/75; PULSE 73; RESP 18; TEMP 36.8; O2SAT 100
[2021-06-09] MEDS: Divalproex Sodium 125 MG Tablet PO (09:05)
[2021-06-09] MEDS: Donepezil HCl 10 MG Tablet 20 MG PO (09:05)
[2021-06-09] MEDS: Enoxaparin 40 MG/0.4 ML Syringe SC (09:05)
[2021-06-09] MEDS: Finasteride 5 MG Tablet PO (09:05)
[2021-06-09] MEDS: Sertraline 50 MG Tablet 150 MG PO (09:05)
[2021-06-09] MEDS: Menthol/Lanolin/Calamine/Znox 113 GM Tube 1 APPLIC TOPICAL (09:09)
[2021-06-09] MEDS: Potassium Chloride Oral Soln 20 MEQ/15 ML UDC 80 MEQ PO (09:11)
--- NOTE | 2021-06-09 10:04 | CASEMGMT ---
Addendum entered by Danyelle Michaels 06/09/21 14:32: YUKO spoke with RN, pt's son was at [facility] earlier today, aware the tentative plan was for pt to discharge to TCU today. YUKO placed a call to pt's son Vincenzo and left message regarding discharge. Plan: TCU today Original Note: Social Work Note Pt should discharge to TCU today. YUKO placed a call to Libby with TCU and updated her. Plan: TCU today Danyelle Michaels [address]RE[address] LIGHT REPAIRER HELPER, [employer] PATROL OFFICER
--- NOTE | 2021-06-09 12:21 | DS.PCM_ITS ---
Providers Date of Admission: 06/07/21 Primary Care Physician: Maritza Johnson MD Consultations 06/07/21 07:13 Consult: Hospice / Palliative Care Routine Consulting Provider: [facility] Reason for Consult: dementia EMERGENT Consult: No MD Notified: Yes Date Notified: 06/07/21 Time Notified: 09:15 Method of Notification: office Reason For Visit: MENTAL STATUS CHANGE Diagnosis Discharge Diagnosis (1) Dementia: Status: Acute Code(s): F03.90 - Unspecified dementia without behavioral disturbance Qualifiers: Dementia behavioral disturbance: with behavioral disturbance Dementia type: unspecified type Qualified Code(s): F03.91 - Unspecified dementia with behavioral disturbance (2) Unintended weight loss: Status: Acute Code(s): R63.4 - Abnormal weight loss (3) Acute metabolic encephalopathy: Status: Acute Code(s): G93.41 - Metabolic encephalopathy (4) Urinary tract infection: Status: Acute Code(s): N39.0 - Urinary tract infection, site not specified Qualifiers: Hematuria presence: without hematuria Urinary tract infection type: site unspecified Qualified Code(s): N39.0 - Urinary tract infection, site not specified (5) Acute hypernatremia: Status: Acute Code(s): E87.0 - Hyperosmolality and hypernatremia Medications at Discharge Home Medications atorvastatin 20 mg PO QHS 06/06/21 divalproex 125 mg PO BID 06/06/21 donepezil 20 mg PO DAILY 06/06/21 finasteride 5 mg PO DAILY 06/06/21 hydroxyzine pamoate 25 mg PO BID PRN 06/06/21 loratadine 10 mg PO DAILY PRN 06/06/21 losartan 25 mg PO DAILY 06/06/21 melatonin 8 mg PO QHS 06/06/21 mirtazapine 15 mg PO QHS 06/06/21 oxybutynin chloride 5 mg PO DAILY 06/06/21 sertraline 150 mg PO DAILY 06/06/21 A-Fbbwfj-C-Cysteine 600 mg PO/SL BID 06/07/21 ciprofloxacin HCl [Cipro] 500 mg PO BID #16 tab 06/09/21 Hospital Course Operations None Procedures None Summary of Care Provided Minutes Spent on Discharge: 39 Hospital Course: Mr. Anderson is an 80-year-old male with a history of Alzheimer's dementia who lives in a memory unit who presented to the emergency department [facility] on 06/07/2021 with complaints of weakness and increased confusion. He presented with his son on admission who gave his hi story. He noted that his father had progressing Alzheimer's but noted he had been acting odd even when compared to his baseline recently and has had a shuffling gait for the past few days prior to admission. His oral intake had been extremely poor. On admission the son reported a significant weight loss in the last 6 months but reported in the last 3 days prior to mission he had no oral intake at all. On admission his vital signs were stable. His CBC showed a mild white count elevation. His BMP showed a sodium of 158 a chloride of 124 a BUN of 30 and a serum creatinine of 1.06. His UA was significant and consistent with a UTI. He was admitted to the general medical floor and placed on IV fluids. He was initially placed on normal saline but did not have a significant drop therefore he was changed to free water with D5W. We were able to slowly lower his serum sodium within goal rates until the day of discharge where he had a sodium of 143. His serum creatinine had normalized to his baseline. He had persistent issues with hypokalemia which were addressed with potassium supplementation. His magnesium was assessed and this was within normal limits. I suspect his total body potassium was extremely low. He was seen by palliative care during his hospitalization is based on discussion with his family this has been progressively ongoing and that his oral intake and weight loss are poor prognostic indicators with his Alzheimer's disease. He is hospice appropriate at this time and this was discussed at length with his son. Currently they have decided to move the patient to CCU for some rehab in the [facility] under palliative care to his memory unit with the expectation that he will need transition to hospice within the next 6 months to a year. His urine culture was positive for E. coli which was resistant to ampicillin and amp sulbactam. During his hospital course he was treated with ceftriaxone which had good susceptibility. He was discharged on ciprofloxacin 500 mg p.o. twice daily for another 8 days to complete a 10-day course. He was discharged to TCU in stable condition. Discharge diagnoses Sepsis secondary to UTI E. coli urinary tract infection Hypernatremia Hyperchloremia Hypomagnesemia POLO Hypertension Hyperlipidemia Dementia with behavioral disorder Depression Weight loss Failure to thrive in the adult Physical Exam Const no apparent distress Constitutional Narrative: Elderly white male with baseline confusion alert and oriented only to himself, sitting up in a chair with a deputy director of nursing at the bedside eating breakfast, appears well General Appearance: cooperative and comfortable Orientation / Consciousness: awake and oriented to person Exam Limitations: altered mental status HEENT normocephalic, head/scalp atraumatic and moist oral mucous membranes HEENT Narrative: Poor dentition, Mallampati 2 Eyes PERRL, EOMs intact bilaterally and no scleral icterus Neck no lymphadenopathy, supple and no JVD General: trachea midline Resp normal respiratory effort, normal air movement, no retractions, no use of accessory muscles and clear to auscultation bilaterally Cardio regular rate, regular rhythm, S1 normal heart sound, S2 normal heart sound, no rub, no gallops, no clicks, no JVD and peripheral pulses 2+ throughout; Negative for no murmurs Rate: tachycardic GI normal to inspection, nondistended, normoactive bowel sounds, soft to palpation, non-tender and non-distended; Negative for hepatosplenomegaly Extremity normal capillary refill and no clubbing, cyanosis or edema Extremity Narrative: Significant decrease in lean muscle mass General Extremity: no tenderness to palpation of joints or extremities Skin no rashes or lesions noted, no wounds, skin turgor normal and no jaundice General Skin Exam: no breakdown and turgor normal Lesions: no lesions Rashes: no rashes Neuro CN's II-XII intact bilaterally, moves all extremities and no focal motor deficits Neuro Narrative: Extremely confused Sensorium / Orientation: awake and alert Speech: speech abnormal Details: Positive for stuttering Motor Exam: general weakness Psych cooperative Psych Narrative: Very pleasant Activity / Motor Behavior: fidgetting Thought Process: confused Memory / Cognition: dementia Weight / BMI Weight Weight: 67.9 kg Body Mass Index (BMI) 19.6 ABG / Lab / Microbiology Data Result Diagrams: 06/08/21 06:45 06/09/21 05:50 Laboratory: Laboratory Results - last 24 hr 06/08/21 16:37: POC Glucose 112 H 06/09/21 05:50: Sodium 143, Potassium 3.3 L, Chloride 110 H, Carbon Dioxide 30.0, Anion Gap 3 L, BUN 11, Creatinine 0.65 L, Estim Creat Clear Calc 56.58, Est GFR (MDRD) Af Amer 151, Est GFR (MDRD) Non-Af 125, BUN/Creatinine Ratio 16.9, Glucose 97, Calcium 7.8 L 06/09/21 05:50: Magnesium 2.0 Microbiology: Microbiology 06/09/21 10:45 Nasal Secretion SARS-CoV-2 Antigen (Rapid) - Final 06/06/21 22:06 Urine Catheter - Savage Urine Culture - Final Presumptive E. coli Meaningful Use Info Meaningful Use Diagnoses (Choose all that apply): None applicable Discharge Plan Admission Admit Date/Time: 06/07/21 00:29 Primary Reason for Your Visit: Dehydration/UTI/MS changes Attending Provider: Jessy Singleton Primary Care Provider: Maritza Johnson Consulting Providers: Jaz Guillory ; Charli Gonzales ; Veronica Hummel ; Kristen Reese ; Hawa Qiu ; Tangela Mortensen TECHNICAL APPLICATIONS SCIENTIST Discharge Orders/Prescriptions Prescriptions: New ciprofloxacin HCl [Cipro] 500 mg tablet 500 mg PO BID Qty: 16 RF: 0 Continued losartan 25 mg tablet 25 mg PO DAILY RF: 0 divalproex 125 mg tablet,delayed release (DR/EC) 125 mg PO BID RF: 0 melatonin 5 mg Tablet 8 mg PO QHS RF: 0 atorvastatin 20 mg tablet 20 mg PO QHS RF: 0 donepezil 10 mg tablet 20 mg PO DAILY RF: 0 oxybutynin chloride 5 mg tablet extended release 24hr 5 mg PO DAILY RF: 0 mirtazapine 15 mg tablet 15 mg PO QHS RF: 0 sertraline 50 mg tablet 150 mg PO DAILY RF: 0 finasteride 5 mg tablet 5 mg PO DAILY RF: 0 loratadine 10 mg Tablet 10 mg PO DAILY PRN (Reason: Allergic Symptoms) RF: 0 hydroxyzine pamoate 25 mg Capsule 25 mg PO BID PRN (Reason: Anxiety) RF: 0 B-Gybzur-R-Cysteine 600 mg PO/SL BID RF: 0 Referrals / Follow Up: Maritza Johnson MD [Primary Care Provider] - Within 2 Weeks Disposition Disposition (needs filled in before D/C Order can be placed): [facility] Charges/Coding Visit Charges Inpatient E&M: 82338 SNF Disch >30 Min
--- NOTE | 2021-06-09 13:29 | PCM.TXEXTCAR ---
Diet 06/07/21 11:08 Diet: Regular - General Food consistency:: Soft & Bite Sized Liquid Consistency:: Regular/Thin Is pt able to select menu?: No Diet Comments: Direct Supervision, upright 90 degrees during and 30-60 min after meal Routine Orders/Code Status Suppository Frequency: Daily PRN O2 Frequency: PRN Keep PO Greater than or Equal to (%): 92 Routine Lab Work: CBC, BMP and - (Lab work weekly) Code Status: Full Code Suggestions for Active Care Change Position every (hours): 2 Hours to sit in a chair: 2 Times a day to sit in chair: 2 Therapies Weight Bearing: Full weight bearing Physical Therapy: Eval and Treat Occupational Therapy: Eval and Treat Speech Therapy: Eval and Treat Problem/Diagnosis (1) Dementia: Status: Acute (2) Unintended weight loss: Status: Acute (3) Acute metabolic encephalopathy: Status: Acute (4) Urinary tract infection: Status: Acute (5) Acute hypernatremia: Status: Acute Allergies/Procedures Done in Hospital Allergies memantine [From Namenda] Allergy (Verified 06/08/21 14:30) Other mushroom Allergy (Verified 06/08/21 14:30) Other rivastigmine [From Exelon] Allergy (Verified 06/08/21 14:30) Other dairy Adverse Reaction (Uncoded 06/08/21 14:30) Other Procedures: None Type of Care/Length of Stay Estimated LOS: Convalescent Care Less Than 30 days Type of Care Needed: Skilled Rehab Potential: Fair Prognosis: Poor Additional Orders/Day of Discharge Additional Orders: Palliative Care Day of Discharge: 06/09/21 Dietary and Speech Recommendations Dietitian Recommendations/Changes: recommend regular diet, consistency/texture per TOLL TICKET CLERK; 120mL ensure enlive 4x/day w/ medpass; additional ONS w/ meals pending PO intake Discharge Plan Admission Admit Date/Time: 06/07/21 00:29 Primary Reason for Your Visit: Dehydration/UTI/MS changes Attending Provider: Jessy Singleton Primary Care Provider: Maritza Johnson Consulting Providers: Jaz Guillory ; Charli Gonzales ; Veronica Hummel ; Kristen Reese ; Hawa Qiu ; Tangela Mortensen INDEPENDENT MARKETING CONSULTANT Discharge Orders/Prescriptions Prescriptions: New ciprofloxacin HCl [Cipro] 500 mg tablet 500 mg PO BID Qty: 16 RF: 0 Continued losartan 25 mg tablet 25 mg PO DAILY RF: 0 divalproex 125 mg tablet,delayed release (DR/EC) 125 mg PO BID RF: 0 melatonin 5 mg Tablet 8 mg PO QHS RF: 0 atorvastatin 20 mg tablet 20 mg PO QHS RF: 0 donepezil 10 mg tablet 20 mg PO DAILY RF: 0 oxybutynin chloride 5 mg tablet extended release 24hr 5 mg PO DAILY RF: 0 mirtazapine 15 mg tablet 15 mg PO QHS RF: 0 sertraline 50 mg tablet 150 mg PO DAILY RF: 0 finasteride 5 mg tablet 5 mg PO DAILY RF: 0 loratadine 10 mg Tablet 10 mg PO DAILY PRN (Reason: Allergic Symptoms) RF: 0 hydroxyzine pamoate 25 mg Capsule 25 mg PO BID PRN (Reason: Anxiety) RF: 0 P-Umywes-M-Cysteine 600 mg PO/SL BID RF: 0 Referrals / Follow Up: Maritza Johnson MD [Primary Care Provider] - Within 2 Weeks Disposition Disposition (needs filled in before D/C Order can be placed): [facility]
--- NOTE | 2021-06-09 14:31 | NURSING ---
REPORT CALLED TO JACLYN MONTALVO ON TCU
[2021-06-09 14:43] VITALS: BP 102/56; PULSE 75; RESP 18; TEMP 36.9; O2SAT 100
--- NOTE | 2021-06-09 14:44 | NURSING ---
PT TO TCU VIA WC
== END 2021-06-09 15:00 | disposition skilled nursing facility (03) | DRG 871 ==
LOC: ED 06-07 00:23 → MS3 06-07 00:36
PROVIDERS: Nurse Practitioner Family; Admitting Provider Hospitalist; Emergency Provider Emergency Medicine; PCP Family Medicine; Visit Provider Internal Medicine
DX: A41.9 Sepsis, unspecified organism (principal); G93.41 Metabolic encephalopathy; E43 Unspecified severe protein-calorie malnutrition; E87.0 Hyperosmolality and hypernatremia; Z68.1 Body mass index [BMI] 19.9 or less, adult; F02.81 Dementia in other diseases classified elsewhere, unspecified severity, with behavioral disturbance; Z16.11 Resistance to penicillins; N17.9 Acute kidney failure, unspecified; N30.00 Acute cystitis without hematuria; B96.20 Unspecified Escherichia coli [E. coli] as the cause of diseases classified elsewhere; E87.6 Hypokalemia; G30.9 Alzheimer's disease, unspecified; E87.8 Other disorders of electrolyte and fluid balance, not elsewhere classified; E83.42 Hypomagnesemia; I10 Essential (primary) hypertension; E78.5 Hyperlipidemia, unspecified; F32.9 Major depressive disorder, single episode, unspecified; N40.0 Benign prostatic hyperplasia without lower urinary tract symptoms; E86.0 Dehydration; R62.7 Adult failure to thrive; R63.4 Abnormal weight loss; Z91.83 Wandering in diseases classified elsewhere; Z79.899 Other long term (current) drug therapy
CPT/HCPCS: 36415; 51702; 71045; 80048; 80053; 81001; 82962; 83605; 83735; 85025; 87086; 87088; 87186; 87426; 92526; 92610; 93005; 97110; 97162; 97166; 97530; 97535; 99285; J7030; P9612; A4216

== ENCOUNTER 2021-06-09 14:50 | Inpatient (IN) | payer MEDICARE, BC, SELFPAY ==
[2021-06-09 15:45] VITALS: BP 128/83; PULSE 72; RESP 20; TEMP 36.3; O2SAT 98; BMI 20.7
[2021-06-09] MEDS: Divalproex Sodium 125 MG Tablet PO (17:55)
[2021-06-09] MEDS: Ciprofloxacin 500 MG Tablet PO (17:56)
[2021-06-09 19:17] VITALS: O2SAT 98
--- NOTE | 2021-06-09 20:38 | HP.PCM_ITS ---
HPI - General General Date of Admission: 06/09/21 HPI Narrative 06/06/2021 JOAN CANALES, is a 80 Male who presents to [facility] Emer[facility] Department with change in mental status. 06/06/2021 EKG normal sinus rhythm, ST&T wave abnormality, consider inferior ischemia. Not eaten for 3 days, mental status decline. Nonverbal. IV fluids given for hypernatremia, dehydration. Rocephin IV for sepsis, urinary tract infection. 06/06/2021 Admit to Hospital. IV fluids continued for acute kidney injury, dehydration. PT/OT/ST. 06/07/2021 Continue Rocephin IV for urinary tract infection, urine culture pending. Acute kidney injury resolved with IV hydration. IV fluids changed to D5W for hypernatremia. Stop Oxybutynin. 06/08/2021 Sodium improved to 149. Urine culture growing E. Coli. 06/09/2021 Rocephin IV changed to Cipro 500mg twice daily. Decreased oral intake, Alzheimer Disease, poor prognosis. Admit to TCU with debility, here for rehabilitation, strengthening, prior to discharge home to [facility] Living with [facility]. [facility] Medical History Alcoholism Cognitive and behavioral changes Dysthymic disorder GERD (gastroesophageal reflux disease) Hypertension Home Medications atorvastatin 20 mg PO QHS 06/06/21 [History Last Taken 06/05/21] divalproex 125 mg PO BID 06/06/21 [History Last Taken 06/06/21] donepezil 20 mg PO DAILY 06/06/21 [History Last Taken 06/06/21] finasteride 5 mg PO DAILY 06/06/21 [History Last Taken 06/06/21] hydroxyzine pamoate 25 mg PO BID PRN 06/06/21 [History Last Taken 06/05/21] loratadine 10 mg PO DAILY PRN 06/06/21 [History Last Taken Unknown] losartan 25 mg PO DAILY 06/06/21 [History Last Taken 06/06/21] melatonin 8 mg PO QHS 06/06/21 [History Last Taken 06/05/21] mirtazapine 15 mg PO QHS 06/06/21 [History Last Taken 06/05/21] oxybutynin chloride 5 mg PO DAILY 06/06/21 [History Last Taken 06/06/21] sertraline 150 mg PO DAILY 06/06/21 [History Last Taken 06/06/21] N-Rdycah-U-Cysteine 600 mg PO/SL BID 06/07/21 [History Last Taken 06/06/21] ciprofloxacin HCl [Cipro] 500 mg PO BID 06/09/21 [History Last Taken Unknown] Allergy/AdvReac Type Severity Reaction Status Date / Time memantine [From Namenda] Allergy Other Verified 06/08/21 14:30 mushroom Allergy Other Verified 06/08/21 14:30 rivastigmine [From Exelon] Allergy Other Verified 06/08/21 14:30 dairy AdvReac Other Uncoded 06/08/21 14:30 Social History household members: other details: Nursing facility Smoking Status: Never smoker alcohol intake: former substance use type: does not use ROS Constitutional Constitutional: Denies chills, fever(s) or weight gain ENT HEENT: Denies headache(s), nasal congestion or nasal discharge Cardiovascular Cardiovascular: Denies chest pain or palpitations Respiratory/Chest Respiratory/Chest: Denies cough, excessive phlegm production or shortness of breath with exertion Gastrointestinal Gastrointestinal: Denies abdominal pain, nausea or vomiting Genitourinary Genitourinary: Denies dysuria Musculoskeletal Musculoskeletal: Denies joint pain or joint swelling Integumentary Integumentary: Denies rash or wounds Neurologic Neurologic: Denies focal weakness, numbness or tingling Psychiatric Psychiatric: Reports auditory hallucinations; Denies anxiety, depression, homicidal ideation or suicidal ideation Vital Signs Vital Signs Vital Signs: 06/09/21 15:45 06/09/21 19:17 Temperature 97.4 F L Temperature Source Temporal Pulse Rate 72 Pulse Rhythm Regular Pulse Strength Normal (2+) Respiratory Rate 20 H Respiratory Effort Non-Labored Respiratory Depth Normal Respiratory Pattern Normal Blood Pressure 128/83 H Blood Pressure Mean 98 Blood Pressure Source Monitor Blood Pressure Position Sitting Blood Pressure Location Right Arm Pulse Ox 98 98 Oxygen Delivery Method Room Air Room Air Weight Weight: 69.541 kg Body Mass Index (BMI) 20.7 Physical Exam Const alert and oriented x3 General Appearance: cooperative HEENT normocephalic Eyes PERRL and EOMs intact bilaterally Neck supple, no JVD and no carotid bruits Resp normal respiratory effort, normal air movement and clear to auscultation bilaterally Cardio regular rate and regular rhythm GI normal to inspection, nondistended, normoactive bowel sounds, non-tender and non-distended Extremity normal capillary refill General Extremity: Negative for edema Skin no rashes or lesions noted General Skin Exam: no breakdown Psych affect normal Appearance: appropriate Assessment & Plan Assessment/Plan (1) Debility: (2) Infectious encephalopathy: (3) Alzheimer disease: (4) Sepsis: (5) Urinary tract infection: (6) Hypernatremia: (7) Dehydration: (8) Acute kidney injury: (9) Depression: (10) Allergic rhinitis: (11) GERD (gastroesophageal reflux disease): (12) Hypertension: (13) Hyperlipidemia: (14) Benign prostate hyperplasia: (15) Anxiety: (16) Insomnia: (17) Appetite loss: PLAN: 80 year old male with below past medical history hospitalized for infectious encephalopathy secondary to sepsis, urinary tract infection, complicated by dehydration, hypernatremia, acute kidney injury, admitted to TCU with debility, here for rehabilitation, strengthening, prior to discharge home to [facility] Living with [facility]. * Debility - PT/OT. * Cognition - ST. * Pain - Tylenol 1000mg Q6H PRN pain (1-10). * Bowel - Senna/colace 1 tablet twice daily, Dulcolax 10mg daily PRN. * Adult immunization - Administer prevnar 13, pneumovax 23, fluzone, covid19 vaccine as appropriate. * DVT prophylaxis - Lovenox 30mg sc daily. * E. Coli urinary tract infection - Cipro 500mg twice daily thru 06/17/2021. * Alzheimer Disease - Donepezil 10mg daily. * Nutrition - Ensure Enlive 120ml 4x/day. * BPH - Finasteride 5mg daily. * Insomnia - Melatonin 10mg QHS. * Skin irritation - Calmoseptine topical twice daily. * Appetite loss - Mirtazapine 7.5mg QHS. * Depression - Sertraline 150mg daily, stable chronic detention use, GDR not recommended.
[2021-06-09] MEDS: MELATONIN 10 MG TABLET PO (20:57)
[2021-06-09] MEDS: Atorvastatin Calcium 20 MG Tablet PO (20:57)
[2021-06-09] MEDS: Mirtazapine 15 MG Tablet PO (20:58)
[2021-06-09] MEDS: Mirtazapine 15 MG Tablet 7.5 MG PO (21:32)
[2021-06-10 05:54] LABS: Absolute Lymphocyte Count 1.65 X10^3/uL (0.83-4.51); Absolute Neutrophil Count 5.7 X10^3/uL (2.0-7.7); Basophil# 0.05 X10^3/uL; Basophil% 0.6 % (0-1); Eosinophil# 0.27 X10^3/uL; Eosinophils% 3.2 % (0-5); Hematocrit 42.7 % (40-54); Hemoglobin 13.5 g/dL (13.0-16.5); Lymphocyte # 1.65 X10^3/ul (0.83-4.51); Lymphocyte % 19.5 % (19-41); Mean Corp Hgb Conc 31.6 g/dL (32-36); Mean Corpuscular Volume 94.9 fL (80-94); Monocyte# 0.63 X10^3/uL; Monocyte% 7.4 % (0-10); NRBC Flagged by Analyzer 0 % (0-5); Neutrophil # 5.73 X10^3/uL (2.7-7.7); Neutrophil % 67.5 % (47-70); Platelet Count 270 K/mm3 (150-450); RBC Distribution Width CV 12.7 % (11.6-14.6); RBC Distribution Width SD 43.9 fl (35.1-43.9); White Blood Count 8.5 K/mm3 (4.4-11.0)
[2021-06-10] MEDS: Enoxaparin 30 MG/0.3 ML Syringe SC (06:17)
[2021-06-10] MEDS: Ciprofloxacin 500 MG Tablet PO ×2 (06:17→17:52)
[2021-06-10] MEDS: Menthol/Lanolin/Calamine/Znox 113 GM Tube 1 APPLIC TOPICAL ×2 (06:17→17:53)
[2021-06-10] MEDS: Donepezil HCl 10 MG Tablet PO (06:17)
[2021-06-10] MEDS: Sertraline 50 MG Tablet 150 MG PO (06:18)
[2021-06-10] MEDS: Senna/Docusate Sodium 1 Tablet PO ×2 (06:18→17:52)
[2021-06-10] MEDS: Finasteride 5 MG Tablet PO (06:18)
[2021-06-10 06:53] LABS: Anion Gap 2 (5-15); BUN 15 mg/dL (7-18); BUN/Creat Ratio 18.5 RATIO (10-20); Calcium,Total 8.3 mg/dL (8.5-10.1); Chloride 111 mmol/L (98-107); Creatinine, Serum 0.81 mg/dL (0.70-1.30); EST Glomerular Filtration Rate 98 mL/min (>60); Est Glom Filt Rate - Afr Amer 118 mL/min (>60); Estimated Creatinine Clearance 71.54 ml/min; Glucose 102 mg/dL (74-106); Potassium 3.7 mmol/L (3.5-5.1); Sodium Level 145 mmol/L (136-145)
[2021-06-10] MEDS: Tuberculin,Purif.prot.deriv. 50 TU/ML Vial 0.1 ML ID (09:11)
[2021-06-10 09:26] VITALS: PULSE 55; RESP 18; O2SAT 97
--- NOTE | 2021-06-10 11:20 | PCM.PN.RX ---
Progress Note - Pharmacy Subjective: TCU Admission Objective: Allergies memantine [From Namenda] Allergy (Verified 06/08/21 14:30) Other mushroom Allergy (Verified 06/08/21 14:30) Other rivastigmine [From Exelon] Allergy (Verified 06/08/21 14:30) Other dairy Adverse Reaction (Uncoded 06/08/21 14:30) Other Current Medications Generic Name Dose Route Start Last Admin Trade Name Freq PRN Reason Stop Dose Admin Acetaminophen 1,000 mg 06/09/21 20:54 Acetaminophen 500 Mg Tablet PO Q6H PRN PRN Pain Score 1-10 Bisacodyl 10 mg 06/09/21 20:54 Bisacodyl 5 Mg Tablet PO DAILY PRN Constipation Calamine/Phenol 1 applic 06/09/21 18:00 06/10/21 06:17 Menthol/Lanolin/Calamine/Znox 113 Gm Tube TOPICAL 1 dose BID JEN Administration Protocol Ciprofloxacin HCl 500 mg 06/09/21 18:00 06/10/21 06:17 Ciprofloxacin 500 Mg Tablet PO 06/17/21 06:01 500 mg BID JEN Administration Donepezil HCl 10 mg 06/10/21 06:00 06/10/21 06:17 Donepezil Hcl 10 Mg Tablet PO 10 mg DAILY JEN Administration Enoxaparin Sodium 40 mg 06/11/21 06:00 Enoxaparin 40 Mg/0.4 Ml Syringe SC DAILY@0600 JEN Finasteride 5 mg 06/10/21 06:00 06/10/21 06:18 Finasteride 5 Mg Tablet PO 5 mg DAILY JEN Administration Melatonin 10 mg 06/09/21 22:00 06/09/21 20:57 Melatonin 10 Mg Tablet PO 10 mg QHS JEN Administration Mirtazapine 7.5 mg 06/09/21 22:00 06/09/21 21:32 Mirtazapine 15 Mg Tablet PO 7.5 mg QHS JEN Administration Nutritional Formula (Lactose Free) 120 ml 06/09/21 17:00 06/10/21 06:16 Ensure Enlive 120 Ml Liquid PO 120 ml 4X/DAY JEN Administration Senna/Docusate Sodium 1 tablet 06/10/21 06:00 06/10/21 06:18 Senna/Docusate Sodium 1 Tablet PO 1 tablet BID JEN Administration Sertraline HCl 150 mg 06/10/21 06:00 06/10/21 06:18 Sertraline 50 Mg Tablet PO 150 mg DAILY JEN Administration Tuberculin PPD 0.1 ml 06/17/21 10:00 Tuberculin,Purif.Prot.Deriv. 50 Tu/Ml Vial ID 06/17/21 10:01 X1 ONE Problem List (Last Reviewed 06/09/21 @ 20:[address] Osito Osuna MD) Appetite loss (Acute) Insomnia (Acute) Anxiety (Acute) Benign prostate hyperplasia (Acute) Hyperlipidemia (Acute) Hypertension (Chronic) GERD (gastroesophageal reflux disease) (Acute) Allergic rhinitis (Acute) Depression (Acute) Acute kidney injury (Acute) Dehydration (Acute) Hypernatremia (Acute) Urinary tract infection (Acute) Sepsis (Acute) Alzheimer disease (Acute) Infectious encephalopathy (Acute) Debility (Acute) Vital Signs Temp Pulse Resp BP Pulse Ox 97.4 F L 55 L 18 128/83 H 97 06/09/21 15:45 06/10/21 09:26 06/10/21 09:26 06/09/21 15:45 06/10/21 09:26 Oxygen Delivery Method Room Air Weight: 69.541 kg Body Mass Index (BMI) 20.7 Sodium 145 mmol/L (136-145) 06/10/21 05:19 Potassium 3.7 mmol/L (3.5-5.1) 06/10/21 05:19 Chloride 111 mmol/L (98-107) H 06/10/21 05:19 Carbon Dioxide 32.0 mmol/L (21.0-32.0) 06/10/21 05:19 Anion Gap 2 (5-15) L 06/10/21 05:19 BUN 15 mg/dL (7-18) 06/10/21 05:19 Creatinine 0.81 mg/dL (0.70-1.30) 06/10/21 05:19 Est GFR (MDRD) Af Amer 118 mL/min (>60) 06/10/21 05:19 Est GFR (MDRD) Non-Af 98 mL/min (>60) 06/10/21 05:19 BUN/Creatinine Ratio 18.5 RATIO (10-20) 06/10/21 05:19 Glucose 102 mg/dL (74-106) 06/10/21 05:19 Assessment/Plan: 1. Pain: acetaminophen 1000mg PO Q6H PRN pain 1-10. Please continue to monitor for increased pain and PRN usage. 2. DVT prophylaxis: enoxaparin 40mg SC daily. Changed to 40mg due to crcl of 71.5ml/min per policy. Please continue to monitor for S/S of bleeding/DVT, hemoglobin (last 13.5g/dL), platelets (last 270,000) and renal function. 3. E coli urinary infection: ciprofloxacin 500mg PO BID thru 06/17/21. Please continue to monitor for S/S of infection, renal function and diarrhea. 4. Alzheimer disease: donepezil 10mg PO daily. Please continue to monitor for GI side effects. 5. BPH: finasteride 5mg PO daily. Please continue to monitor for S/S of BPH and hypotension. 6. Insomnia: melatonin 10mg PO QHS. Please continue to monitor for excessive drowsiness. Psychotropic Medications: 1. Appetite loss: mirtazapine 7.5mg PO QHS. Patient with decreased oral intake per physician note. GDR not appropriate. 2. Depression: sertraline 150mg PO daily. Please see physician note regarding GDR. Please continue to monitor for GI side effects. Unnecessary Medications: None Bowel Regimen: senna/docusate 1T PO BID and bisacodyl 10mg PO daily PRN constipation. Please continue to monitor for constipation and PRN usage. Date of Note:: 06/10/21
--- NOTE | 2021-06-10 12:11 | NURSING ---
pt is supervised feeds per speech, needs encouragement and cueing.
--- NOTE | 2021-06-10 12:15 | CASEMGMT ---
Social Work SW met with pt for initial assessment. Pt was sleeping but was able to awake to name. Pt unable to answer any questions that SW asked (where he was, where he lived, what his name was). MOLST forms unable to be completed due to dementia. Phone call to pt son Vincenzo and information for assessment obtained. Pt lives at [facility] in the memory care unit. Pt was able to walk independently prior this hospitalization and family's goal to for pt to return to this level of independence with walking if possible and to minimize his fall risk. While in the acute hospital pt son did meet with Palliative Medicine and sign pt up for services. Son is realistic that Hospice is in pt's future, but he is not ready to sign his dad up for hospice services yet. Vincenzo also states pt sister is stationed in [place] and is coming home in June and looking forward to spending time with pt. Vincenzo updated on Medicare benefit and encouraged to contact secondary insurance to ensure copay coverage. Plan is to return to [facility] memory care unit with Palliative Medicine. SW to follow. Jared ANGUIANO
--- NOTE | 2021-06-10 14:21 | NURSING ---
staff phoned [facility] to check to see if pt had pneumonia vaccines up to date, [facility] nurse to return call with dates if pt had. awaiting return call.
[2021-06-10 14:56] VITALS: BP 101/61; PULSE 60; RESP 12; TEMP 36.6; O2SAT 95
--- NOTE | 2021-06-10 18:42 | NURSING ---
son here, checked to see if he is aware of pt having pneumonia vaccine. states that pt had one but will call his doctor and let us know which one and date.
[2021-06-10] MEDS: MELATONIN 10 MG TABLET PO (22:44)
[2021-06-10] MEDS: Mirtazapine 15 MG Tablet 7.5 MG PO (22:44)
[2021-06-10] MEDS: Acetaminophen 500 MG Tablet 1000 MG PO (22:56)
--- NOTE | 2021-06-10 23:42 | NURSING ---
Alert to self. Confused. Verbal cues required to complete tasks with little effect. Restless at times. staff 1:1 provided to promote safety. Alarm in place and functioning properly.
[2021-06-11 05:00] VITALS: BP 100/66; PULSE 59; RESP 16; TEMP 36.4; O2SAT 94
[2021-06-11] MEDS: Menthol/Lanolin/Calamine/Znox 113 GM Tube 1 APPLIC TOPICAL ×2 (06:00→20:52)
[2021-06-11] MEDS: Senna/Docusate Sodium 1 Tablet PO ×2 (06:01→16:55)
[2021-06-11] MEDS: Sertraline 50 MG Tablet 150 MG PO (06:01)
[2021-06-11] MEDS: Enoxaparin 40 MG/0.4 ML Syringe SC (06:01)
[2021-06-11] MEDS: Donepezil HCl 10 MG Tablet PO (06:02)
[2021-06-11] MEDS: Finasteride 5 MG Tablet PO (06:02)
[2021-06-11] MEDS: Ciprofloxacin 500 MG Tablet PO ×2 (06:02→16:55)
[2021-06-11 08:00] VITALS: O2SAT 99
[2021-06-11 10:00] VITALS: PULSE 97; RESP 18; O2SAT 92
[2021-06-11 13:49] VITALS: BP 102/63; PULSE 75; RESP 17; TEMP 36.4; O2SAT 95
[2021-06-11] MEDS: MELATONIN 10 MG TABLET PO (20:51)
[2021-06-11] MEDS: Mirtazapine 15 MG Tablet 7.5 MG PO (20:51)
[2021-06-12] MEDS: Senna/Docusate Sodium 1 Tablet PO ×2 (07:09→16:53)
[2021-06-12] MEDS: Ciprofloxacin 500 MG Tablet PO ×2 (07:09→16:53)
[2021-06-12] MEDS: Donepezil HCl 10 MG Tablet PO (07:09)
[2021-06-12] MEDS: Finasteride 5 MG Tablet PO (07:10)
[2021-06-12] MEDS: Enoxaparin 40 MG/0.4 ML Syringe SC (07:10)
[2021-06-12] MEDS: Menthol/Lanolin/Calamine/Znox 113 GM Tube 1 APPLIC TOPICAL ×2 (07:10→16:58)
[2021-06-12] MEDS: Sertraline 50 MG Tablet 150 MG PO (07:10)
[2021-06-12 13:58] VITALS: O2SAT 94
--- NOTE | 2021-06-12 16:47 | NURSING ---
Pt's son updated this shift.
[2021-06-12] MEDS: Mirtazapine 15 MG Tablet 7.5 MG PO (20:50)
[2021-06-12] MEDS: MELATONIN 10 MG TABLET PO (20:50)
--- NOTE | 2021-06-12 21:29 | NURSING ---
Updated Dr Osuna of patient's restlessness, order for ativan 0.5mg Q6 PRN.
[2021-06-13] MEDS: Enoxaparin 40 MG/0.4 ML Syringe SC (06:50)
[2021-06-13] MEDS: Donepezil HCl 10 MG Tablet PO (06:51)
[2021-06-13] MEDS: Finasteride 5 MG Tablet PO (06:51)
[2021-06-13] MEDS: Ciprofloxacin 500 MG Tablet PO ×2 (06:51→17:15)
[2021-06-13] MEDS: Senna/Docusate Sodium 1 Tablet PO (06:52)
[2021-06-13] MEDS: Sertraline 50 MG Tablet 150 MG PO (06:52)
[2021-06-13] MEDS: Menthol/Lanolin/Calamine/Znox 113 GM Tube 1 APPLIC TOPICAL ×2 (06:53→17:15)
[2021-06-13 16:00] VITALS: BP 129/82; PULSE 59; RESP 18; TEMP 36.7; O2SAT 96
[2021-06-13 20:00] VITALS: PULSE 79; RESP 16; O2SAT 98
[2021-06-13] MEDS: Mirtazapine 15 MG Tablet 7.5 MG PO (20:44)
[2021-06-13] MEDS: MELATONIN 10 MG TABLET PO (20:44)
[2021-06-14] MEDS: Donepezil HCl 10 MG Tablet PO (05:05)
[2021-06-14] MEDS: Enoxaparin 40 MG/0.4 ML Syringe SC (05:05)
[2021-06-14] MEDS: Senna/Docusate Sodium 1 Tablet PO ×2 (05:05→17:42)
[2021-06-14] MEDS: Ciprofloxacin 500 MG Tablet PO ×2 (05:05→17:42)
[2021-06-14] MEDS: Sertraline 50 MG Tablet 150 MG PO (05:05)
[2021-06-14] MEDS: Finasteride 5 MG Tablet PO (05:05)
[2021-06-14] MEDS: Menthol/Lanolin/Calamine/Znox 113 GM Tube 1 APPLIC TOPICAL ×2 (05:06→17:46)
[2021-06-14 10:00] VITALS: PULSE 71; RESP 16; O2SAT 96
--- NOTE | 2021-06-14 14:49 | NURSING ---
Resident and son, Vincenzo, notified of COVID status on the unit.
[2021-06-14 16:32] VITALS: BP 111/64; PULSE 76; RESP 15; TEMP 37.1; O2SAT 97
[2021-06-14] MEDS: LORazepam 0.5 MG Tablet PO (20:00)
[2021-06-14] MEDS: Mirtazapine 15 MG Tablet 7.5 MG PO (20:34)
[2021-06-14] MEDS: MELATONIN 10 MG TABLET PO (20:36)
--- NOTE | 2021-06-14 20:37 | NURSING ---
Pt continues to be restless and anxious after unsuccessful attempt to place pt in bed. Food, fluids, 1:1, and redirection all completed prior to administering Ativan. Staff to continue to monitor.
[2021-06-15 05:39] VITALS: TEMP 36.4
[2021-06-15] MEDS: Finasteride 5 MG Tablet PO (05:39)
[2021-06-15] MEDS: Enoxaparin 40 MG/0.4 ML Syringe SC (05:39)
[2021-06-15] MEDS: Ciprofloxacin 500 MG Tablet PO ×2 (05:40→17:10)
[2021-06-15] MEDS: Donepezil HCl 10 MG Tablet PO (05:40)
[2021-06-15] MEDS: Sertraline 50 MG Tablet 150 MG PO (05:41)
[2021-06-15] MEDS: Senna/Docusate Sodium 1 Tablet PO ×2 (05:41→17:10)
[2021-06-15] MEDS: Menthol/Lanolin/Calamine/Znox 113 GM Tube 1 APPLIC TOPICAL ×2 (05:42→17:11)
--- NOTE | 2021-06-15 05:48 | NURSING ---
Pt refused to have BP taken this am. Hands interlaced fairly tight and BUE rigid. Temp only vital sign obtained.
--- NOTE | 2021-06-15 05:50 | NURSING ---
Pt chewed pills that were who;e in applesauce this am. Consumed approximately half of Ensure.
--- NOTE | 2021-06-15 12:20 | CASEMGMT ---
Addendum entered by Magaly Ackerman 06/15/21 16:37: Return call from Briseida from [facility] and they will be able to accept pt back on Sunday06/17/21. Discharge Date: 06/17/21 Discharge Disposition: [facility], memory care unit SILVIO Kimble Original Note: Social Work Plan of care meeting held with pt present and son Vincenzo on conference call. Pt is receiving PT/OT/ST. Pt is a current resident at [facility] in the memory care unit. Pt son feels pt is ready to return to [facility] and discharge set for 06/17/21. Son states he can transport and will pick pt up at 1100. VM left with Harish at [facility] to arrange discharge. Will await return call. SILVIO Howe
[2021-06-15 16:00] VITALS: BP 101/70; PULSE 69; RESP 17; TEMP 36.6; O2SAT 95
[2021-06-15] MEDS: MELATONIN 10 MG TABLET PO (19:44)
[2021-06-15] MEDS: Mirtazapine 15 MG Tablet 7.5 MG PO (19:44)
[2021-06-15] MEDS: LORazepam 0.5 MG Tablet PO (19:51)
--- NOTE | 2021-06-15 20:24 | DS.PCM_ITS ---
Providers Date of Admission: 06/09/21 Primary Care Physician: Maritza Johnson MD Reason For Visit: MENTAL STATUS CHANGE Diagnosis Discharge Diagnosis (1) Debility: Status: Acute Code(s): R53.81 - Other malaise (2) Infectious encephalopathy: Status: Acute Code(s): G93.49 - Other encephalopathy; B99.9 - Unspecified infectious disease (3) Alzheimer disease: Status: Acute Code(s): G30.9 - Alzheimer's disease, unspecified; F02.80 - Dementia in other diseases classified elsewhere without behavioral disturbance (4) Sepsis: Status: Acute Code(s): A41.9 - Sepsis, unspecified organism (5) Urinary tract infection: Status: Acute Code(s): N39.0 - Urinary tract infection, site not specified (6) Hypernatremia: Status: Acute Code(s): E87.0 - Hyperosmolality and hypernatremia (7) Dehydration: Status: Acute Code(s): E86.0 - Dehydration (8) Acute kidney injury: Status: Acute Code(s): N17.9 - Acute kidney failure, unspecified (9) Depression: Status: Acute Code(s): F32.9 - Major depressive disorder, single episode, unspecified (10) Allergic rhinitis: Status: Acute Code(s): J30.9 - Allergic rhinitis, unspecified (11) GERD (gastroesophageal reflux disease): Status: Acute Code(s): K21.9 - Gastro-esophageal reflux disease without esophagitis (12) Hypertension: Status: Chronic Code(s): I10 - Essential (primary) hypertension (13) Hyperlipidemia: Status: Acute Code(s): E78.5 - Hyperlipidemia, unspecified (14) Benign prostate hyperplasia: Status: Acute Code(s): N40.0 - Benign prostatic hyperplasia without lower urinary tract symptoms (15) Anxiety: Status: Acute Code(s): F41.9 - Anxiety disorder, unspecified (16) Insomnia: Status: Acute Code(s): G47.00 - Insomnia, unspecified (17) Appetite loss: Status: Acute Code(s): R63.0 - Anorexia Medications at Discharge Home Medications finasteride 5 mg PO DAILY 06/06/21 melatonin 8 mg PO QHS 06/06/21 sertraline 150 mg PO DAILY 06/06/21 acetaminophen 1,000 mg PO Q6H PRN PRN #0 tab 06/15/21 donepezil 10 mg PO DAILY #0 tab 06/15/21 mirtazapine 7.5 mg PO QHS #0 tab 06/15/21 Hospital Course Operations None Procedures None Summary of Care Provided Minutes Spent on Discharge: 35 Hospital Course: 80 year old male with below past medical history hospitalized for infectious encephalopathy secondary to sepsis, urinary tract infection, complicated by dehydration, hypernatremia, acute kidney injury, admitted to TCU with debility, here for rehabilitation, strengthening, prior to discharge home to [facility] with hospice. Discharge to [facility] Memory unit 06/17/2021. Physical Exam Const alert and oriented x3 General Appearance: cooperative HEENT normocephalic Eyes PERRL and EOMs intact bilaterally Neck supple, no JVD and no carotid bruits Resp normal respiratory effort, normal air movement and clear to auscultation bilate rally Cardio regular rate and regular rhythm GI normal to inspection, nondistended, normoactive bowel sounds, non-tender and non-distended Extremity normal capillary refill General Extremity: Negative for edema Skin no rashes or lesions noted General Skin Exam: no breakdown Psych affect normal Appearance: appropriate Weight / BMI Weight Weight: 70.335 kg Body Mass Index (BMI) 20.7 ABG / Lab / Microbiology Data Result Diagrams: 06/10/21 05:19 06/10/21 05:19 D/C Instructions Discharge Diet: No restrictions Discharge Activity: Return to Normal Activity, May Shower and Use Walker Weight Bearing Status: Weight bearing as tolerated Call your doctor if you observe: Fever of 101 or Higher, Inability to urinate, Inability to have a bowel movement, Shortness of breath, Dizziness, Fainting spells, Swelling in the ankles, Chest pain, Increased palpitations (irregular heartbeat) and Uncontrolled pain Additional Instructions: Discharge to [facility] 06/17/2021. Please Follow Up With: Maritza Johnson MD When: 1 week. Meaningful Use Info Meaningful Use Diagnoses (Choose all that apply): None applicable Discharge Plan Admission Admit Date/Time: 06/09/21 14:50 Primary Reason for Your Visit: Debility. Attending Provider: Enrrique,Osito Chi Primary Care Provider: Maritza Johnson Instructions Additional Instructions / Restrictions: [facility], memory care unit Discharge Orders/Prescriptions Prescriptions: New donepezil 10 mg Tablet 10 mg PO DAILY Qty: 0 RF: 0 acetaminophen 500 mg Tablet 1,000 mg PO Q6H PRN PRN (Reason: Pain Score 1-10) Qty: 0 RF: 0 mirtazapine 15 mg Tablet 7.5 mg PO QHS Qty: 0 RF: 0 Continued melatonin 5 mg Tablet 8 mg PO QHS RF: 0 sertraline 50 mg tablet 150 mg PO DAILY RF: 0 finasteride 5 mg tablet 5 mg PO DAILY RF: 0 Discontinued losartan 25 mg tablet 25 mg PO DAILY RF: 0 divalproex 125 mg tablet,delayed release (DR/EC) 125 mg PO BID RF: 0 atorvastatin 20 mg tablet 20 mg PO QHS RF: 0 donepezil 10 mg tablet 20 mg PO DAILY RF: 0 oxybutynin chloride 5 mg tablet extended release 24hr 5 mg PO DAILY RF: 0 mirtazapine 15 mg tablet 15 mg PO QHS RF: 0 loratadine 10 mg Tablet 10 mg PO DAILY PRN (Reason: Allergic Symptoms) RF: 0 hydroxyzine pamoate 25 mg Capsule 25 mg PO BID PRN (Reason: Anxiety) RF: 0 C-Ivqaga-Y-Cysteine 600 mg PO/SL BID RF: 0 ciprofloxacin HCl [Cipro] 500 mg tablet 500 mg PO BID RF: 0 Referrals / Follow Up: Mraitza Johnson MD [Primary Care Provider] - Disposition Disposition (needs filled in before D/C Order can be placed): Assisted Living
--- NOTE | 2021-06-15 20:29 | TREXTCAR_ITS ---
Diet 06/09/21 16:01 Diet: Regular - General Food consistency:: Soft & Bite Sized Liquid Consistency:: Regular/Thin Diet Comments: Direct Supervision, Upright 90 degrees during and 30-60min after meal Routine Orders/Code Status Code Status: DNRCC-A (No intubation.) Wound(s) right thigh: Wound Type: scattered abrasions Therapies Weight Bearing: Weight bearing as tolerated Problem/Diagnosis (1) Debility: Status: Acute (2) Infectious encephalopathy: Status: Acute (3) Alzheimer disease: Status: Acute (4) Sepsis: Status: Acute (5) Urinary tract infection: Status: Acute (6) Hypernatremia: Status: Acute (7) Dehydration: Status: Acute (8) Acute kidney injury: Status: Acute (9) Depression: Status: Acute (10) Allergic rhinitis: Status: Acute (11) GERD (gastroesophageal reflux disease): Status: Acute (12) Hypertension: Status: Chronic (13) Hyperlipidemia: Status: Acute (14) Benign prostate hyperplasia: Status: Acute (15) Anxiety: Status: Acute (16) Insomnia: Status: Acute (17) Appetite loss: Status: Acute Allergies/Procedures Done in Hospital Allergies memantine [From Namenda] Allergy (Verified 06/08/21 14:30) Other mushroom Allergy (Verified 06/08/21 14:30) Other rivastigmine [From Exelon] Allergy (Verified 06/08/21 14:30) Other dairy Adverse Reaction (Uncoded 06/08/21 14:30) Other Procedures: None Type of Care/Length of Stay Estimated LOS: More Than 30 Days Type of Care Needed: Longterm/Assisted Living Rehab Potential: Fair Prognosis: Poor Additional Orders/Day of Discharge Day of Discharge: 06/17/21 Dietary and Speech Recommendations Dietitian Recommendations/Changes: Will continue liberal Regular diet (soft and bite size consistency) / medpass as ordered Follow Up Care Please Follow Up With: Maritza Johnson MD Discharge Plan Admission Admit Date/Time: 06/09/21 14:50 Primary Reason for Your Visit: Debility. Attending Provider: Osito Osuna Chi Primary Care Provider: Maritza Johnson Instructions Additional Instructions / Restrictions: [facility], memory care unit Discharge Orders/Prescriptions Prescriptions: New donepezil 10 mg Tablet 10 mg PO DAILY Qty: 0 RF: 0 acetaminophen 500 mg Tablet 1,000 mg PO Q6H PRN PRN (Reason: Pain Score 1-10) Qty: 0 RF: 0 mirtazapine 15 mg Tablet 7.5 mg PO QHS Qty: 0 RF: 0 Continued melatonin 5 mg Tablet 8 mg PO QHS RF: 0 sertraline 50 mg tablet 150 mg PO DAILY RF: 0 finasteride 5 mg tablet 5 mg PO DAILY RF: 0 Discontinued losartan 25 mg tablet 25 mg PO DAILY RF: 0 divalproex 125 mg tablet,delayed release (DR/EC) 125 mg PO BID RF: 0 atorvastatin 20 mg tablet 20 mg PO QHS RF: 0 donepezil 10 mg tablet 20 mg PO DAILY RF: 0 oxybutynin chloride 5 mg tablet extended release 24hr 5 mg PO DAILY RF: 0 mirtazapine 15 mg tablet 15 mg PO QHS RF: 0 loratadine 10 mg Tablet 10 mg PO DAILY PRN (Reason: Allergic Symptoms) RF: 0 hydroxyzine pamoate 25 mg Capsule 25 mg PO BID PRN (Reason: Anxiety) RF: 0 D-Vnrzmx-G-Cysteine 600 mg PO/SL BID RF: 0 ciprofloxacin HCl [Cipro] 500 mg tablet 500 mg PO BID RF: 0 Referrals / Follow Up: Maritza Johnson MD [Primary Care Provider] - Disposition Disposition (needs filled in before D/C Order can be placed): Assisted Living
[2021-06-15 21:25] VITALS: PULSE 79; RESP 16
[2021-06-16] MEDS: Menthol/Lanolin/Calamine/Znox 113 GM Tube 1 APPLIC TOPICAL ×2 (05:35→17:05)
[2021-06-16] MEDS: Donepezil HCl 10 MG Tablet PO (06:42)
[2021-06-16] MEDS: Senna/Docusate Sodium 1 Tablet PO ×2 (06:42→17:03)
[2021-06-16] MEDS: Sertraline 50 MG Tablet 150 MG PO (06:42)
[2021-06-16] MEDS: Finasteride 5 MG Tablet PO (06:42)
[2021-06-16] MEDS: Enoxaparin 40 MG/0.4 ML Syringe SC (06:45)
[2021-06-16] MEDS: Ciprofloxacin 500 MG Tablet PO ×2 (06:46→17:03)
[2021-06-16 06:51] VITALS: BP 111/55; PULSE 58
[2021-06-16 15:27] VITALS: BP 119/59; PULSE 61; RESP 18; TEMP 36.4; O2SAT 96
--- NOTE | 2021-06-16 19:30 | NURSING ---
Pt restless in chair, keeps getting up, taken for walk around the halls, sat back in chair, given ice cream.
[2021-06-16] MEDS: LORazepam 0.5 MG Tablet PO (19:54)
[2021-06-16] MEDS: Mirtazapine 15 MG Tablet 7.5 MG PO (19:55)
[2021-06-16] MEDS: MELATONIN 10 MG TABLET PO (19:56)
[2021-06-17] MEDS: Sertraline 50 MG Tablet 150 MG PO (04:19)
[2021-06-17] MEDS: Finasteride 5 MG Tablet PO (04:19)
[2021-06-17] MEDS: Ciprofloxacin 500 MG Tablet PO (04:20)
[2021-06-17] MEDS: Senna/Docusate Sodium 1 Tablet PO (04:20)
[2021-06-17] MEDS: Donepezil HCl 10 MG Tablet PO (04:20)
[2021-06-17] MEDS: Menthol/Lanolin/Calamine/Znox 113 GM Tube 1 APPLIC TOPICAL (04:22)
[2021-06-17] MEDS: Enoxaparin 40 MG/0.4 ML Syringe SC (04:23)
[2021-06-17 04:46] LABS: Absolute Lymphocyte Count 1.39 X10^3/uL (0.83-4.51); Absolute Neutrophil Count 4.8 X10^3/uL (2.0-7.7); Basophil# 0.05 X10^3/uL; Basophil% 0.7 % (0-1); Eosinophil# 0.35 X10^3/uL; Eosinophils% 4.8 % (0-5); Hematocrit 36.3 % (40-54); Hemoglobin 11.6 g/dL (13.0-16.5); Lymphocyte # 1.39 X10^3/ul (0.83-4.51); Lymphocyte % 18.9 % (19-41); Mean Corpuscular Hgb 30.4 pg (27.0-32.0); Mean Platelet Vol. 9.6 fl (6.2-12.0); Monocyte% 8.2 % (0-10); NRBC Flagged by Analyzer 0 % (0-5); Neutrophil % 65.4 % (47-70); Platelet Count 238 K/mm3 (150-450); RBC Distribution Width CV 13.2 % (11.6-14.6); RBC Distribution Width SD 45.9 fl (35.1-43.9); Red Blood Count 3.82 M/mm3 (4.6-6.2); White Blood Count 7.3 K/mm3 (4.4-11.0)
[2021-06-17 05:50] LABS: Anion Gap 2 (5-15); BUN 18 mg/dL (7-18); Calcium,Total 8.2 mg/dL (8.5-10.1); Chloride 106 mmol/L (98-107); Creatinine, Serum 0.75 mg/dL (0.70-1.30); EST Glomerular Filtration Rate 106 mL/min (>60); Est Glom Filt Rate - Afr Amer 129 mL/min (>60); Estimated Creatinine Clearance 58.61 ml/min; Glucose 102 mg/dL (74-106); Potassium 4.1 mmol/L (3.5-5.1); Sodium Level 140 mmol/L (136-145)
--- NOTE | 2021-06-17 08:36 | CASEMGMT ---
Social Work Palliative Medicine notified of pt discharge today to [facility] and d/c information faxed. SILVIO Howe
[2021-06-17 09:29] VITALS: BP 116/52; PULSE 58; RESP 17; TEMP 35.9; O2SAT 96
[2021-06-17 09:57] VITALS: PULSE 76; RESP 16; O2SAT 95
--- NOTE | 2021-06-17 10:52 | NURSING ---
report called to [facility].
--- NOTE | 2021-06-21 09:07 | MDS.RN ---
Information for the mds was obtained from review of the clinical record, interview of resident, staff, and direct observation of resident's care.
== END 2021-06-17 11:23 | disposition home or self-care (01) | DRG 690 ==
PROVIDERS: Admitting Provider Family Medicine Geriatric Medicine; PCP Family Medicine; Visit Provider Family Medicine Geriatric Medicine
DX: N39.0 Urinary tract infection, site not specified (principal); B96.20 Unspecified Escherichia coli [E. coli] as the cause of diseases classified elsewhere; F32.9 Major depressive disorder, single episode, unspecified; N40.0 Benign prostatic hyperplasia without lower urinary tract symptoms; G30.9 Alzheimer's disease, unspecified; F02.80 Dementia in other diseases classified elsewhere, unspecified severity, without behavioral disturbance, psychotic disturbance, mood disturbance, and anxiety; K21.9 Gastro-esophageal reflux disease without esophagitis; I10 Essential (primary) hypertension; F34.1 Dysthymic disorder; F10.21 Alcohol dependence, in remission; E78.5 Hyperlipidemia, unspecified; F41.9 Anxiety disorder, unspecified; Z79.899 Other long term (current) drug therapy
CPT/HCPCS: 36415; 80048; 85025; 87635; 92507; 92523; 92526; 92610; 97110; 97116; 97162; 97166; 97530; 97535; 97803; U0005; U0003

== ENCOUNTER 2021-08-05 09:23 | Emergency (ER) | payer MEDICARE, BC, SELFPAY ==
[2021-08-05 09:26] VITALS: BP 126/68; PULSE 63; RESP 18; TEMP 36.6; O2SAT 99; BMI 22.4
--- NOTE | 2021-08-05 09:33 | CT_ITS ---
STUDY: CT BRAIN WITHOUT CONTRAST REASON FOR EXAM: Male, 80 years old. trauma RADIATION DOSAGE (If Supplied By Facility): CTDIvol = ( 44.99 ) mGy, DLP = ( 829.85 ) mGycm TECHNIQUE: Transaxial CT imaging of the brain was performed without administration of intravenous contrast material. Individualized dose optimization techniques were used for this CT. COMPARISON: No relevant priors. FINDINGS: Normal soft tissue structures. Normal calvarium. There is moderate cerebral atrophy with widening of the extra-axial spaces and ventricular dilatation. There are areas of decreased attenuation within the white matter tracts of the supratentorial brain, consistent with microvascular disease changes. Normal basal ganglia and thalami. Normal brainstem. Normal cerebellum. There is no intracranial hemorrhage. There are no findings of an acute ischemic infarction. Normal visualized paranasal sinuses. CT/Brain/Head without Contrast IMPRESSION: Chronic involutional changes of the brain. Electronically Signed: Tavon Victoria MD at 10:10 EDT Tel , Service support ,
--- NOTE | 2021-08-05 09:33 | CT_ITS ---
STUDY: CT CERVICAL SPINE WITHOUT CONTRAST REASON FOR EXAM: Male, 80 years old. trauma, neck pain RADIATION DOSAGE (If Supplied By Facility): CTDIvol = ( 15.82 ) mGy, DLP = ( 325.04 ) mGycm TECHNIQUE: High resolution transaxial imaging was performed without contrast material. Sagittal and coronal images were reconstructed. Individualized dose optimization techniques were used for this CT. COMPARISON: None FINDINGS: Normal craniovertebral junction. There are degenerative changes of the anterior atlantoaxial articulation. Normal odontoid process. Normal cervical lordosis. Normal vertebral bodies and posterior osseous elements. C2-3: Mild right facet hypertrophy produces mild right neural foraminal stenosis. No central spinal stenosis. C3-4: Moderate right facet hypertrophy produces mild right neural foraminal stenosis. No central spinal stenosis. C4-5: Normal endplates. Normal disc height and morphology. Normal central canal and intervertebral neuroforamina. C5-6: Normal endplates. Normal disc height and morphology. Normal central canal and intervertebral neuroforamina. C6-7: Normal endplates. Normal disc height and morphology. Normal central canal and intervertebral neuroforamina. C7-T1: Normal endplates. Normal disc height and morphology. Normal central canal and intervertebral neuroforamina. Normal visualized soft tissue structures. CT/Spine Cervical without Contras IMPRESSION: No acute fracture or subluxation. Electronically Signed: Tavon Victoria MD at 10:13 EDT Tel , Service support ,
--- NOTE | 2021-08-05 09:34 | ED.VIS.FALL ---
HPI HPI - Fall History of Present Illness Chief Complaint: Fall Informant: parent and family Limited: dementia Occured/Mechanism Occurred: Today Pain/Injury Pain Location: none Narrative Narrative: Patient presents via EMS for evaluation after a fall. Patient has a history of dementia. Son states he was told the patient slipped this morning and then fell backwards striking his head on the ground. There was no loss of consciousness and vital signs were normal immediately following the fall. He was sent in for evaluation as a precaution. Patient has no complaints at this time. He does not remember what happened. He is not on any anticoagulants. [facility] Medical History Alcoholism Cognitive and behavioral changes Dementia Dysthymic disorder GERD (gastroesophageal reflux disease) Hypertension Unintended weight loss Home Medications finasteride 5 mg PO DAILY 06/06/21 [History Last Taken 06/06/21] melatonin 8 mg PO QHS 06/06/21 [History Last Taken 06/05/21] sertraline 150 mg PO DAILY 06/06/21 [History Last Taken 06/06/21] acetaminophen 1,000 mg PO Q6H PRN PRN #0 tab 06/15/21 [Rx Last Taken Unknown] donepezil 10 mg PO DAILY #0 tab 06/15/21 [Rx Last Taken Unknown] mirtazapine 7.5 mg PO QHS #0 tab 06/15/21 [Rx Last Taken Unknown] divalproex 125 mg PO BID 08/05/21 [History Last Taken Unknown] hydroxyzine pamoate 25 mg PO BID PRN 08/05/21 [History Last Taken Unknown] Allergy/AdvReac Type Severity Reaction Status Date / Time memantine [From Namenda] Allergy Other Verified 08/05/21 09:25 mushroom Allergy Other Verified 08/05/21 09:25 rivastigmine [From Exelon] Allergy Other Verified 08/05/21 09:25 dairy AdvReac Other Uncoded 08/05/21 09:25 Social History household members: other details: Nursing facility Smoking Status: Never smoker alcohol intake: former substance use type: does not use ROS ROS ED Review of Systems ROS Unobtainable: other Details: Patient denies complaints, however history and review of system are limited secondary to the patient's dementia. EXAM Physical Exam Const Vital Signs: 08/05/21 09:26 08/05/21 09:30 Temperature 97.9 F Temperature Source Oral Pulse Rate 63 Respiratory Rate 18 Respiratory Effort Normal Respiratory Depth Normal Respiratory Pattern Normal Blood Pressure 126/68 H Blood Pressure Mean 87 Pulse Ox 99 Oxygen Delivery Method Room Air Room Air Positive well nourished and well developed General Appearance ED: well developed HEENT Reports normocephalic and head/scalp atraumatic atraumatic Eyes PERRL and EOMs intact bilaterally Neck supple Chest Wall inspection of chest normal and palpation of chest normal Resp normal respiratory effort and clear to auscultation bilaterally Cardio regular rate and regular rhythm GI normal to inspection, nondistended, normoactive bowel sounds Palpation: soft Back/Spine no CVA tenderness Lumbar Spine / Lower Back: straight leg raise negative bilaterally; Negative for lumbar spinal tenderness or paraspinal muscle tenderness Extremity normal to inspection and full ROM Neuro no sensory deficits noted Sensorium / Orientation: alert Motor Exam: strength 5/5 throughout Psych mental status grossly normal Skin no rashes or lesions noted MDM MDM MDM Narrative Medical decision making narrative: CT scan of the head and C-spine are ordered. Radiography Diagnostic Testing: Clinical Impression(s) from Imaging Studies Brain CT 08/05/21 09:33 IMPRESSION: Chronic involutional changes of the brain. Electronically Signed: Tavon Victoria MD at 10:10 EDT Tel , Service support , Cervical Spine CT 08/05/21 09:33 IMPRESSION: No acute fracture or subluxation. Electronically Signed: Tavon Victoria MD at 10:13 EDT Tel , Service support , Treatment and Re-Evaluation Comments:: CT scans reveal no acute findings. Test results discussed with patient and son at bedside. Patient be discharged back to his ECF. Discharge Plan Triage Chief Complaint: Fall ED Provider: Alla Prather Dx/Rx/DC Orders Clinical Impression: Fall, Closed head injury Instructions: ED Head Injury (Adult), ED Fall Prevention Prescriptions: No Action melatonin 5 mg Tablet 8 mg PO QHS RF: 0 sertraline 50 mg tablet 150 mg PO DAILY RF: 0 finasteride 5 mg tablet 5 mg PO DAILY RF: 0 donepezil 10 mg Tablet 10 mg PO DAILY Qty: 0 RF: 0 acetaminophen 500 mg Tablet 1,000 mg PO Q6H PRN PRN (Reason: Pain Score 1-10) Qty: 0 RF: 0 mirtazapine 15 mg Tablet 7.5 mg PO QHS Qty: 0 RF: 0 divalproex 125 mg tablet,delayed release (DR/EC) 125 mg PO BID RF: 0 hydroxyzine pamoate 25 mg capsule 25 mg PO BID PRN (Reason: Agitation) RF: 0 Primary Care Provider: Maritza Johnson Referrals: Maritza Johnson MD [Primary Care Provider] - Disposition [facility]position[facility] Discharge Location: [facility]
[2021-08-05 10:20] VITALS: BP 122/72; PULSE 75; RESP 18; TEMP 36.6; O2SAT 96
--- NOTE | 2021-08-05 10:30 | ED.RN ---
[facility] updated on pt. returning. son to transfer back
== END 2021-08-05 10:31 | disposition skilled nursing facility (03) ==
PROVIDERS: Emergency Provider Emergency Medicine; PCP Family Medicine
DX: S09.90XA Unspecified injury of head, initial encounter (principal); W01.0XXA Fall on same level from slipping, tripping and stumbling without subsequent striking against object, initial encounter; Y93.9 Activity, unspecified; Y92.9 Unspecified place or not applicable; Y99.9 Unspecified external cause status; I10 Essential (primary) hypertension; F03.91 Unspecified dementia, unspecified severity, with behavioral disturbance; Z79.899 Other long term (current) drug therapy
CPT/HCPCS: 70450; 72125; 99284

== ENCOUNTER → 2021-09-15 05:25 | Outpatient (REF) | payer MEDICARE, BC, SELFPAY ==
[2021-09-15 08:37] LABS: Hematocrit 40.6 % (40-54); Mean Corpuscular Hgb 29.7 pg (27.0-32.0); Mean Corpuscular Volume 92.7 fL (80-94); Mean Platelet Vol. 9.8 fl (6.2-12.0); Platelet Count 210 K/mm3 (150-450); RBC Distribution Width CV 13.6 % (11.6-14.6); RBC Distribution Width SD 46.4 fl (35.1-43.9); Red Blood Count 4.38 M/mm3 (4.6-6.2); White Blood Count 8.3 K/mm3 (4.4-11.0)
[2021-09-15 09:03] LABS: ALB/GLOB Ratio 0.8 RATIO (0.9-2.4); AST(SGOT) 16 U/L (15-37); Alanine Aminotransfer ALT/SGPT 29 U/L (16-61); Alkaline Phosphatase 81 U/L (45-117); Anion Gap 8 (5-15); BUN 21 mg/dL (7-18); BUN/Creat Ratio 25.6 RATIO (10-20); Calcium,Total 8.7 mg/dL (8.5-10.1); Chloride 109 mmol/L (98-107); Creatinine, Serum 0.82 mg/dL (0.70-1.30); EST Glomerular Filtration Rate 96 mL/min (>60); Est Glom Filt Rate - Afr Amer 116 mL/min (>60); Globulin 3.7 g/dL (2.2-4.2); Glucose 86 mg/dL (74-106); Potassium 3.7 mmol/L (3.5-5.1); Protein, Total 6.7 g/dL (6.4-8.2); Sodium Level 146 mmol/L (136-145); Thyroid Stim Hormone (TSH) 2.32 uIU/mL (0.358-3.74)
== END ==
LOC: OLS.BROOKB 05:25
PROVIDERS: PCP Family Medicine; Visit Provider Family Medicine
DX: I10 Essential (primary) hypertension (principal)
CPT/HCPCS: 36415; 80053; 84443; 85027

== ENCOUNTER 2021-10-01 15:16 | Emergency (ER) | payer MEDICARE, BC, SELFPAY ==
[2021-10-01 15:17] VITALS: BP 126/67; PULSE 50; RESP 14; TEMP 36.6; O2SAT 98; BMI 25.8
--- NOTE | 2021-10-01 15:36 | EDS_ITS ---
HPI History of Present Illness Chief Complaint: Diarrhea Informant: patient, EMS and SNF Narrative Narrative: 80-year-old male with a history of dementia (ANO x1 at baseline per reports) has had diarrhea for the past couple days. assisted reports that he had a negative Covid test earlier in the week. They are concerned about dehydration and C. difficile. They are also requesting a Covid test. No stool studies were reportedly performed as an outpatient. Patient states he does not currently have any complaints. The only medication change that was noted by senior care was of a increase in his propranolol dosing. History is limited from patient PFSH PFS Medical History Alcoholism Cognitive and behavioral changes Dementia Dysthymic disorder GERD (gastroesophageal reflux disease) Hypertension Unintended weight loss Home Medications finasteride 5 mg PO DAILY 06/06/21 [History Last Taken 06/06/21] melatonin 8 mg PO QHS 06/06/21 [History Last Taken 06/05/21] sertraline 150 mg PO DAILY 06/06/21 [History Last Taken 06/06/21] acetaminophen 1,000 mg PO Q6H PRN PRN #0 tab 06/15/21 [Rx Last Taken Unknown] donepezil 10 mg PO DAILY #0 tab 06/15/21 [Rx Last Taken Unknown] mirtazapine 7.5 mg PO QHS #0 tab 06/15/21 [Rx Last Taken Unknown] divalproex 125 mg PO BID 08/05/21 [History Last Taken Unknown] hydroxyzine pamoate 25 mg PO BID PRN 08/05/21 [History Last Taken Unknown] propranolol 30 mg PO BID 10/01/21 [History Last Taken Unknown] sertraline 100 mg PO QHS 10/01/21 [History Last Taken Unknown] Allergy/AdvReac Type Severity Reaction Status Date / Time memantine [From Namenda] Allergy Other Verified 10/01/21 15:23 mushroom Allergy Other Verified 10/01/21 15:23 rivastigmine [From Exelon] Allergy Other Verified 10/01/21 15:23 dairy AdvReac Other Uncoded 10/01/21 15:23 Social History household members: other details: Nursing facility Smoking Status: Never smoker alcohol intake: former substance use type: does not use ROS ROS ED Review of Systems ROS Unobtainable: due to mental status Gastrointestinal Gastrointestinal: Reports diarrhea EXAM Physical Exam Const Vital Signs: 10/01/21 15:17 10/01/21 17:20 Temperature 98 F Temperature Source Temporal Pulse Rate 50 L Respiratory Rate 14 Blood Pressure 126/67 H 114/62 Blood Pressure Mean 86 79 Pulse Ox 98 Oxygen Delivery Method Room Air Positive well nourished and well developed General Appearance ED: well developed HEENT Reports normocephalic, head/scalp atraumatic, TM's clear and moist mucous membranes Negative for trauma Tympanic Membrane ED: Yes TM's clear Eyes PERRL and EOMs intact bilaterally Neck no lymphadenopathy, supple and no JVD Resp normal respiratory effort and clear to auscultation bilaterally Cardio regular rate and no murmurs Rate: bradycardia GI normal to inspection, nondistended, normoactive bowel sounds and non-tender Palpation: soft Back/Spine no CVA tenderness and normal ROM Extremity normal to inspection General Extremety ED: Negative for edema General Extremity: Negative for edema Neuro CN's II-XII intact bilaterally and no sensory deficits noted Sensorium / Orientation: alert and orientation impaired Motor Exam: strength 5/5 throughout Psych mental status grossly normal Mood & Affect: Negative for depressed or tearful Skin no rashes or lesions noted and no wounds MDM MDM MDM Narrative Medical decision making narrative: CBC is normal. CMP demonstrates a BUN of 25 with creatinine 0.93. Liver transaminases were normal. Covid swab was negati ve. Clinically the patient does not appear dehydrated. He is not hypotensive or tachycardic (understanding that he is on beta-ricardo). He is tolerating fluids here. He has not made any stool since he has been here. Patient started to become agitated. The son is comfortable with discharging him. I think they can order a stool study as an outpatient. Lab Data Attestation: I reviewed the patient's lab results. Labs: Laboratory Results - last 24 hr 10/01/21 10/01/21 15:20 15:20 WBC 7.7 RBC 4.70 Hgb 14.1 Hct 44.2 MCV 94.0 MCH 30.0 MCHC 31.9 L RDW Std Deviation 47.7 H RDW Coeff of Katey 13.7 Plt Count 183 MPV 9.5 Immature Gran % (Auto) 0.800 Neut % (Auto) 61.7 Lymph % (Auto) 14.1 L [place] % (Auto) 13.1 H Eos % (Auto) 9.9 H Baso % (Auto) 0.4 Absolute Neuts (auto) 4.8 Absolute Lymphs (auto) 1.09 Nucleated RBC % 0 Sodium 142 Potassium 3.5 Chloride 108 H Carbon Dioxide 28.0 Anion Gap 6 BUN 25 H Creatinine 0.93 Estim Creat Clear Calc 59.23 Est GFR (MDRD) Af Amer 101 Est GFR (MDRD) Non-Af 83 BUN/Creatinine Ratio 26.9 H Glucose 97 Calcium 8.5 Total Bilirubin 0.20 AST 20 ALT 32 Alkaline Phosphatase 73 Total Protein 6.9 Albumin 3.3 Globulin 3.6 Albumin/Globulin Ratio 0.9 Discharge Plan Triage Chief Complaint: Diarrhea ED Provider: Joseph Hurtado Dx/Rx/DC Orders Clinical Impression: Diarrhea, Alzheimer disease Instructions: ED Diarrhea, Unknown Cause Prescriptions: No Action melatonin 5 mg Tablet 8 mg PO QHS RF: 0 sertraline 50 mg tablet 150 mg PO DAILY RF: 0 finasteride 5 mg tablet 5 mg PO DAILY RF: 0 donepezil 10 mg Tablet 10 mg PO DAILY Qty: 0 RF: 0 acetaminophen 500 mg Tablet 1,000 mg PO Q6H PRN PRN (Reason: Pain Score 1-10) Qty: 0 RF: 0 mirtazapine 15 mg Tablet 7.5 mg PO QHS Qty: 0 RF: 0 divalproex 125 mg tablet,delayed release (DR/EC) 125 mg PO BID RF: 0 hydroxyzine pamoate 25 mg capsule 25 mg PO BID PRN (Reason: Agitation) RF: 0 sertraline 100 mg tablet 100 mg PO QHS RF: 0 propranolol 10 mg tablet 30 mg PO BID RF: 0 Primary Care Provider: Maritza Johnson Referrals: Maritza Johnson MD [Primary Care Provider] - As soon as possible Activity Restrictions/Additional Instructions: As Mr. Anderson has not produced a stool specimen since he has been here if he continues to have diarrhea would recommend sending a stool specimen for C. difficile and enteric pathogens panel Disposition Disposition: Home, Self Care
[2021-10-01 15:45] LABS: Absolute Lymphocyte Count 1.09 X10^3/uL (0.83-4.51); Absolute Neutrophil Count 4.8 X10^3/uL (2.0-7.7); Basophil# 0.03 X10^3/uL; Basophil% 0.4 % (0-1); Eosinophil# 0.76 X10^3/uL; Eosinophils% 9.9 % (0-5); Hematocrit 44.2 % (40-54); Hemoglobin 14.1 g/dL (13.0-16.5); Lymphocyte # 1.09 X10^3/ul (0.83-4.51); Lymphocyte % 14.1 % (19-41); Mean Corp Hgb Conc 31.9 g/dL (32-36); Mean Platelet Vol. 9.5 fl (6.2-12.0); Monocyte# 1.01 X10^3/uL; Monocyte% 13.1 % (0-10); NRBC Flagged by Analyzer 0 % (0-5); Neutrophil # 4.76 X10^3/uL (2.7-7.7); Neutrophil % 61.7 % (47-70); Platelet Count 183 K/mm3 (150-450); RBC Distribution Width CV 13.7 % (11.6-14.6); RBC Distribution Width SD 47.7 fl (35.1-43.9); White Blood Count 7.7 K/mm3 (4.4-11.0)
[2021-10-01 16:02] LABS: ALB/GLOB Ratio 0.9 RATIO (0.9-2.4); AST(SGOT) 20 U/L (15-37); Alanine Aminotransfer ALT/SGPT 32 U/L (16-61); Albumin, Serum 3.3 g/dL (3.2-5.0); Alkaline Phosphatase 73 U/L (45-117); Anion Gap 6 (5-15); BUN 25 mg/dL (7-18); BUN/Creat Ratio 26.9 RATIO (10-20); Calcium,Total 8.5 mg/dL (8.5-10.1); Chloride 108 mmol/L (98-107); Creatinine, Serum 0.93 mg/dL (0.70-1.30); EST Glomerular Filtration Rate 83 mL/min (>60); Est Glom Filt Rate - Afr Amer 101 mL/min (>60); Estimated Creatinine Clearance 59.23 ml/min; Globulin 3.6 g/dL (2.2-4.2); Glucose 97 mg/dL (74-106); Potassium 3.5 mmol/L (3.5-5.1); Protein, Total 6.9 g/dL (6.4-8.2); Sodium Level 142 mmol/L (136-145)
[2021-10-01 17:20] VITALS: BP 114/62
[2021-10-01 18:28] VITALS: BP 131/76; PULSE 62; RESP 15; O2SAT 97
--- NOTE | 2021-10-01 18:29 | ED.RN ---
ATTEMPTED TO CALL REPORT TO [facility]. WAS PLACED ON HOLD FOR GREATER THAN 5 MINUTES BOTH TIMES.
== END 2021-10-01 18:29 | disposition home or self-care (01) ==
PROVIDERS: Emergency Provider Emergency Medicine; PCP Family Medicine
DX: R19.7 Diarrhea, unspecified (principal); G30.9 Alzheimer's disease, unspecified; F02.80 Dementia in other diseases classified elsewhere, unspecified severity, without behavioral disturbance, psychotic disturbance, mood disturbance, and anxiety; I10 Essential (primary) hypertension; Z79.899 Other long term (current) drug therapy
CPT/HCPCS: 80053; 85025; 87426; 99284; A4216

== ENCOUNTER 2021-10-31 05:00 | Outpatient (REF) | payer MEDICARE, BC, SELFPAY ==
[2021-10-31 11:14] LABS: Hemoglobin A1c 5.6 % (3.8-5.6)
[2021-10-31 11:19] LABS: PSA,Total - Annual Screen 0.61 ng/mL (0.00-4.00)
== END 2021-10-31 23:59 | disposition home or self-care (01) ==
LOC: OLS.BROOKB 05:00
PROVIDERS: PCP Family Medicine; Visit Provider Family Medicine
DX: R63.4 Abnormal weight loss (principal); R35.0 Frequency of micturition; Z12.5 Encounter for screening for malignant neoplasm of prostate
CPT/HCPCS: 36415; 83036; 84153; G0103

== ENCOUNTER → 2021-12-22 | Outpatient (REF) | payer MEDICARE, BC, SELFPAY ==
[2021-12-22 08:30] LABS: Hemoglobin A1c 5.7 % (3.8-5.6)
[2021-12-22 08:38] LABS: AST(SGOT) 19 U/L (15-37); Alanine Aminotransfer ALT/SGPT 28 U/L (16-61); Albumin, Serum 3.3 g/dL (3.2-5.0); Alkaline Phosphatase 65 U/L (45-117); Anion Gap 3 (5-15); BUN 21 mg/dL (7-18); BUN/Creat Ratio 24.4 RATIO (10-20); Calcium,Total 8.5 mg/dL (8.5-10.1); Chloride 106 mmol/L (98-107); Creatinine, Serum 0.86 mg/dL (0.70-1.30); EST Glomerular Filtration Rate 91 mL/min (>60); Est Glom Filt Rate - Afr Amer 110 mL/min (>60); Globulin 3.3 g/dL (2.2-4.2); Glucose 90 mg/dL (74-106); Potassium 3.9 mmol/L (3.5-5.1); Protein, Total 6.6 g/dL (6.4-8.2); Sodium Level 140 mmol/L (136-145)
== END | disposition home or self-care (01) ==
LOC: OLS.BROOKB 04:00
PROVIDERS: PCP Family Medicine; Visit Provider Family Medicine
DX: R63.4 Abnormal weight loss (principal)
CPT/HCPCS: 36415; 80053; 83036

== ENCOUNTER → 2022-01-24 | Outpatient (REF) | payer MEDICARE, BC, SELFPAY ==
[2022-01-24 12:05] LABS: Bacteria 0 SEEN /hpf (None Seen); Mucous, Urine 0 SEEN /hpf (<or=2+); Squamous Epithelial Cells - UA 0 SEEN /hpf (0-5); White Blood Cells 0 SEEN /hpf (0-5)
[2022-01-24 12:26] LABS: Color, Urine Yellow (Yellow); Glucose, Dipstick Normal (Normal); Ketone-Dipstick 5 mg/dl (Negative); Leukocyte Esterase-Dipstick Negative /ul (Negative); Nitrite-Dipstick Negative (Negative); Occult Blood-Urine 10 /ul (Negative); Protein-Dipstick 15 mg/dl (Negative); Specific Gravity, Urine 1.025 (1.002-1.030); Urine Bilirubin Dipstick Negative (Negative); Urine Clarity Clear (Clear); Urine Urobilinogen Normal (Normal)
[2022-01-24 12:38] LABS: Calcium Oxalate Crystals Ur 1+ /hpf (<or=2+); Red Blood Cells-Urine 0-5 SEEN /hpf (0-5)
== END | disposition home or self-care (01) ==
LOC: OLS.BROOKB 11:00
PROVIDERS: PCP Family Medicine; Visit Provider Family Medicine
DX: R41.0 Disorientation, unspecified (principal); R45.1 Restlessness and agitation; R53.83 Other fatigue
CPT/HCPCS: 81001; 87077; 87086; 87088

== ENCOUNTER → 2022-01-30 | Outpatient (REF) | payer MEDICARE, BC, SELFPAY ==
[2022-01-30 08:08] LABS: Hematocrit 39.7 % (40-54); Mean Corp Hgb Conc 32.7 g/dL (32-36); Mean Corpuscular Hgb 30.8 pg (27.0-32.0); Mean Corpuscular Volume 94.1 fL (80-94); Mean Platelet Vol. 9.3 fl (6.2-12.0); Platelet Count 198 K/mm3 (150-450); RBC Distribution Width CV 13.6 % (11.6-14.6); Red Blood Count 4.22 M/mm3 (4.6-6.2); White Blood Count 8.1 K/mm3 (4.4-11.0)
[2022-01-30 08:23] LABS: ALB/GLOB Ratio 0.8 RATIO (0.9-2.4); AST(SGOT) 18 U/L (15-37); Alanine Aminotransfer ALT/SGPT 26 U/L (16-61); Alkaline Phosphatase 65 U/L (45-117); Anion Gap 4 (5-15); BUN 28 mg/dL (7-18); BUN/Creat Ratio 30.7 RATIO (10-20); Calcium,Total 8.4 mg/dL (8.5-10.1); Chloride 111 mmol/L (98-107); Creatinine, Serum 0.91 mg/dL (0.70-1.30); EST Glomerular Filtration Rate 85 mL/min (>60); Est Glom Filt Rate - Afr Amer 103 mL/min (>60); Globulin 3.8 g/dL (2.2-4.2); Glucose 102 mg/dL (74-106); Potassium 3.8 mmol/L (3.5-5.1); Protein, Total 6.8 g/dL (6.4-8.2); Sodium Level 145 mmol/L (136-145)
== END | disposition home or self-care (01) ==
LOC: OLS.BROOKB 05:00
PROVIDERS: PCP Family Medicine; Visit Provider Family Medicine
DX: R45.1 Restlessness and agitation (principal); R53.83 Other fatigue
CPT/HCPCS: 36415; 80053; 85027

== ENCOUNTER → 2022-02-07 | Outpatient (REF) | payer MEDICARE, BC, SELFPAY ==
[2022-02-07 08:23] LABS: Ferritin 214 ng/mL (26-388); Iron 72 ug/dL (65-175); Iron Binding Capacity,Total 263 ug/dL (250-450); PERCENT IRON SATURATION 27.4 % (15.0-55.0)
== END | disposition home or self-care (01) ==
LOC: OLS.BROOKB 05:00
PROVIDERS: PCP Family Medicine
DX: R41.0 Disorientation, unspecified (principal); R46.89 Other symptoms and signs involving appearance and behavior
CPT/HCPCS: 36415; 82728; 83540; 83550

== ENCOUNTER 2022-02-10 03:20 | Emergency (ER) | payer MEDICARE, BC, SELFPAY ==
[2022-02-10 03:21] VITALS: BP 142/78; PULSE 45; RESP 12; TEMP 36.4; O2SAT 99; BMI 22.4
--- NOTE | 2022-02-10 03:36 | RAD_ITS ---
INDICATION: altered mental status EXAMINATION/TECHNIQUE: X-RAY - XR Chest 1 View COMPARISON: 06/06/2021 FINDINGS: LINES/DEVICES: None. LUNGS: No consolidation, edema or effusion. No pneumothorax. MEDIASTINUM AND CARDIOVASCULAR STRUCTURES: Cardiac silhouette not enlarged. Central airways and mediastinal contour are unremarkable. BONES AND SOFT TISSUES: Unremarkable. RAD/Chest 1 View (Portable) IMPRESSION: No acute cardiopulmonary disease. Electronically Signed: David Fam MD at 4:43 EDT ,
--- NOTE | 2022-02-10 03:36 | CT_ITS ---
STUDY: CT BRAIN WITHOUT CONTRAST REASON FOR EXAM: Male, 81 years old. head injury RADIATION DOSAGE (If Supplied By Facility): CTDIvol = ( 44.99 ) mGy, DLP = ( 829.85 ) mGycm TECHNIQUE: Transaxial CT imaging of the brain was performed without administration of intravenous contrast material. Individualized dose optimization techniques were used for this CT. COMPARISON: CT brain 08/05/2021 FINDINGS: BRAIN: Normal callejas/white matter differentiation. VENTRICLES: The ventricles and cortical sulci are moderately enlarged. Bilateral periventricular hypoattenuation, nonspecific however likely represents chronic microvascular ischemic changes. EXTRA-AXIAL SPACES: No hemorrhages, fluid collections, or masses. CALVARIUM/SKULL BASE: Normal. FACE/SINUSES: Visualized portions normal. SOFT TISSUES: Normal. OTHER: None. CONCLUSION: No intracranial hemorrhage or depressed calvarial fracture. Senescent changes. Electronically Signed: David Fam MD at 4:47 EDT , CT/Brain/Head without Contrast IMPRESSION: undefined
--- NOTE | 2022-02-10 03:36 | RAD_ITS ---
INDICATION: falls EXAMINATION/TECHNIQUE: X-RAY - XR Pelvis 1 or 2 Views 1 VIEWS COMPARISON: None. FINDINGS: SOFT TISSUES: Mild increased stool. No soft tissue swelling or gas. No radiopaque foreign body. BONES/JOINTS: No acute fracture or subluxation.. Normal alignment. Preservation of the joint space.. No sclerotic or destructive changes observed. RAD/Pelvis 1 or 2 Views IMPRESSION: No acute fracture or dislocation. Electronically Signed: David Fam MD at 4:44 EDT ,
--- NOTE | 2022-02-10 03:38 | EDS_ITS ---
HPI HPI - Fall History of Present Illness Chief Complaint: Fall Narrative Narrative: 81-year-old male with reported dementia and ANO x1 at baseline presenting from the skilled nursing. Apparently they let him sleep through dinner and when they tried to get him up at 3 in the morning he fell onto his buttocks. After that they try to get him up and he fell back hitting his head. No LOC. No nausea or vomiting. Patient is a poor informant but reports no pain any where. He states he is not dizzy or lightheaded. He does not have any complaints. PFSH PFSH Medical History Alcoholism Cognitive and behavioral changes Dementia Dysthymic disorder GERD (gastroesophageal reflux disease) Hypertension Unintended weight loss Home Medications finasteride 5 mg PO DAILY 06/06/21 [History Last Taken 06/06/21] melatonin 8 mg PO QHS 06/06/21 [History Last Taken 06/05/21] sertraline 150 mg PO DAILY 06/06/21 [History Last Taken 06/06/21] acetaminophen 1,000 mg PO Q6H PRN PRN #0 tab 06/15/21 [Rx Last Taken Unknown] donepezil 10 mg PO DAILY #0 tab 06/15/21 [Rx Last Taken Unknown] mirtazapine 7.5 mg PO QHS #0 tab 06/15/21 [Rx Last Taken Unknown] divalproex 125 mg PO BID 08/05/21 [History Last Taken Unknown] hydroxyzine pamoate 25 mg PO BID PRN 08/05/21 [History Last Taken Unknown] propranolol 30 mg PO BID 10/01/21 [History Last Taken Unknown] sertraline 100 mg PO QHS 10/01/21 [History Last Taken Unknown] Allergy/AdvReac Type Severity Reaction Status Date / Time memantine [From Namenda] Allergy Other Verified 02/10/22 03:27 mushroom Allergy Other Verified 02/10/22 03:27 rivastigmine [From Exelon] Allergy Other Verified 02/10/22 03:27 dairy AdvReac Other Uncoded 02/10/22 03:27 Social History household members: other details: Nursing facility Smoking Status: Never smoker alcohol intake: former substance use type: does not use ROS ROS ED Review of Systems ROS Unobtainable: due to mental condition EXAM Physical Exam Const Vital Signs: 02/10/22 03:21 02/10/22 03:33 02/10/22 05:51 Temperature 97.6 F L Temperature Source Oral Pulse Rate 45 L Respiratory Rate 12 Respiratory Effort Normal Non-Labored Blood Pressure 142/78 H 154/72 H Blood Pressure Mean 99 99 Pulse Ox 99 Oxygen Delivery Method Room Air 02/10/22 06:26 Temperature Temperature Source Pulse Rate 53 L Respiratory Rate 12 Respiratory Effort Blood Pressure 156/71 H Blood Pressure Mean Pulse Ox 97 Oxygen Delivery Method Positive well nourished General Appearance ED: NAD HEENT Reports normocephalic and TM's normal bilaterally atraumatic Eyes PERRL and EOMs intact bilaterally Neck full ROM General: Negative for tenderness Chest Wall inspection of chest normal Resp normal respiratory effort and clear to auscultation bilaterally Cardio regular rhythm Rate: bradycardia GI non-tender Palpation: soft Back/Spine Cervical Spine: Negative for cervical spine tenderness Thoracic Spine / Upper Back: Negative for thoracic spinal tenderness Lumbar Spine / Lower Back: Negative for lumbar spinal tenderness Extremity normal to inspection and full ROM Neuro CN's II-XII intact bilaterally, moves all extremities, no focal motor deficits and no sensory deficits noted Sensorium / Orientation: alert Psych Psych Narrative: Confused Skin Lesions: no lesions Rashes: no rashes MDM MDM MDM Narrative Medical decision making narrative: Patient is a poor informant who reportedly had mechanical fall tonight after missing dinner. He has no complaints. His exam is normal and there is no signs of trauma. He is able to move all 4 extremities. Blood work is obtained and his CBC and CMP are unremarkable. Urinalysis is negative for infection. Chest x-ray on my interpretation shows no acute cardiopulmonary process and radiologist agree. CT brain interpreted by the radiologist and reviewed by myself shows no acute abnormality. 2 views of the pelvis show no acute fractures or other abnormalities on my interpretation and the radiologist does agree. Valproic acid level is 32 which is low but is not the lowest that is had recently. I feel this point patient is medically cleared to go back to his facility. Impression: 1. Fall 2. Closed head injury Lab Data Attestation: I reviewed the patient's lab results. Labs: Laboratory Results - last 24 hr 02/10/22 02/10/22 02/10/22 03:53 03:53 03:53 WBC 6.7 RBC 5.01 Hgb 15.4 Hct 47.0 MCV 93.8 MCH 30.7 MCHC 32.8 RDW Std Deviation 44.1 H RDW Coeff of Katey 12.9 Plt Count 263 MPV 8.8 Immature Gran % (Auto) 1.300 H Neut % (Auto) 59.8 Lymph % (Auto) 19.9 [place] % (Auto) 6.7 Eos % (Auto) 11.4 H Baso % (Auto) 0.9 Absolute Neuts (auto) 4.0 Absolute Lymphs (auto) 1.34 Nucleated RBC % 0 Sodium 141 Potassium 4.2 Chloride 105 Carbon Dioxide 32.0 Anion Gap 4 L BUN 13 Creatinine 0.89 Estim Creat Clear Calc 73.09 Est GFR (MDRD) Af Amer 106 Est GFR (MDRD) Non-Af 88 BUN/Creatinine Ratio 14.7 Glucose 104 Calcium 9.0 Total Bilirubin 0.30 AST 20 ALT 27 Alkaline Phosphatase 86 Total Protein 7.5 Albumin 3.3 Globulin 4.2 Albumin/Globulin Ratio 0.8 L Urine Color Urine Clarity Urine pH Ur Specific [place] Urine Protein Urine Glucose (UA) Urine Ketones Urine Occult Blood Urine Nitrite Urine Bilirubin Urine Urobilinogen Ur Leukocyte Esterase Urine RBC Urine WBC Ur Squamous Epith Cells Urine Bacteria Urine Mucus Valproic Acid 32 L 02/10/22 05:45 WBC RBC Hgb Hct MCV MCH MCHC RDW Std Deviation RDW Coeff of Katey Plt Count MPV Immature Gran % (Auto) Neut % (Auto) Lymph % (Auto) [place] % (Auto) Eos % (Auto) Baso % (Auto) Absolute Neuts (auto) Absolute Lymphs (auto) Nucleated RBC % Sodium Potassium Chloride Carbon Dioxide Anion Gap BUN Creatinine Estim Creat Clear Calc Est GFR (MDRD) Af Amer Est GFR (MDRD) Non-Af BUN/Creatinine Ratio Glucose Calcium Total Bilirubin AST ALT Alkaline Phosphatase Total Protein Albumin Globulin Albumin/Globulin Ratio Urine Color Yellow Urine Clarity Clear Urine pH 7.0 Ur Specific [place] 1.010 Urine Protein Negative Urine Glucose (UA) Normal Urine Ketones Negative Urine Occult Blood Negative Urine Nitrite Negative Urine Bilirubin Negative Urine Urobilinogen Normal Ur Leukocyte Esterase Negative Urine RBC 0 SEEN Urine WBC 0 SEEN Ur Squamous Epith Cells 0 SEEN Urine Bacteria RARE Urine Mucus 0 SEEN Valproic Acid Radiography Diagnostic Testing: Clinical Impression(s) from Imaging Studies Brain CT 02/10/22 03:36 IMPRESSION: undefined Chest X-Ray 02/10/22 03:36 IMPRESSION: No acute cardiopulmonary disease. Electronically Signed: David Fam MD at 4:43 EDT , Pelvis X-Ray 02/10/22 03:36 IMPRESSION: No acute fracture or dislocation. Electronically Signed: David Fam MD at 4:44 EDT , Discharge Plan Triage Chief Complaint: Fall ED Provider: Catracho Isaacs Dx/Rx/DC Orders Instructions: ED Fall with Uncertain Cause, ED Fall Prevention Prescriptions: No Action melatonin 5 mg Tablet 8 mg PO QHS RF: 0 sertraline 50 mg tablet 150 mg PO DAILY RF: 0 finasteride 5 mg tablet 5 mg PO DAILY RF: 0 donepezil 10 mg Tablet 10 mg PO DAILY Qty: 0 RF: 0 acetaminophen 500 mg Tablet 1,000 mg PO Q6H PRN PRN (Reason: Pain Score 1-10) Qty: 0 RF: 0 mirtazapine 15 mg Tablet 7.5 mg PO QHS Qty: 0 RF: 0 divalproex 125 mg tablet,delayed release (DR/EC) 125 mg PO BID RF: 0 hydroxyzine pamoate 25 mg capsule 25 mg PO BID PRN (Reason: Agitation) RF: 0 sertraline 100 mg tablet 100 mg PO QHS RF: 0 propranolol 10 mg tablet 30 mg PO BID RF: 0 Primary Care Provider: Maritza Johnson Referrals: Maritza Johnson MD [Primary Care Provider] - Disposition Disposition: Home, Self Care
[2022-02-10 04:07] LABS: Absolute Lymphocyte Count 1.34 X10^3/uL (0.83-4.51); Basophil# 0.06 X10^3/uL; Basophil% 0.9 % (0-1); Eosinophil# 0.77 X10^3/uL; Eosinophils% 11.4 % (0-5); Hemoglobin 15.4 g/dL (13.0-16.5); Lymphocyte # 1.34 X10^3/ul (0.83-4.51); Lymphocyte % 19.9 % (19-41); Mean Corp Hgb Conc 32.8 g/dL (32-36); Mean Corpuscular Hgb 30.7 pg (27.0-32.0); Mean Corpuscular Volume 93.8 fL (80-94); Mean Platelet Vol. 8.8 fl (6.2-12.0); Monocyte# 0.45 X10^3/uL; Monocyte% 6.7 % (0-10); NRBC Flagged by Analyzer 0 % (0-5); Neutrophil # 4.02 X10^3/uL (2.7-7.7); Neutrophil % 59.8 % (47-70); Platelet Count 263 K/mm3 (150-450); RBC Distribution Width CV 12.9 % (11.6-14.6); RBC Distribution Width SD 44.1 fl (35.1-43.9); Red Blood Count 5.01 M/mm3 (4.6-6.2); White Blood Count 6.7 K/mm3 (4.4-11.0)
[2022-02-10 04:24] LABS: ALB/GLOB Ratio 0.8 RATIO (0.9-2.4); AST(SGOT) 20 U/L (15-37); Alanine Aminotransfer ALT/SGPT 27 U/L (16-61); Albumin, Serum 3.3 g/dL (3.2-5.0); Alkaline Phosphatase 86 U/L (45-117); Anion Gap 4 (5-15); BUN 13 mg/dL (7-18); BUN/Creat Ratio 14.7 RATIO (10-20); Chloride 105 mmol/L (98-107); Creatinine, Serum 0.89 mg/dL (0.70-1.30); EST Glomerular Filtration Rate 88 mL/min (>60); Est Glom Filt Rate - Afr Amer 106 mL/min (>60); Estimated Creatinine Clearance 73.09 ml/min; Globulin 4.2 g/dL (2.2-4.2); Glucose 104 mg/dL (74-106); Potassium 4.2 mmol/L (3.5-5.1); Protein, Total 7.5 g/dL (6.4-8.2); Sodium Level 141 mmol/L (136-145)
[2022-02-10 04:45] LABS: Valproic Acid (Depakene) Level 32 ug/mL (50-100)
[2022-02-10 05:51] VITALS: BP 154/72
[2022-02-10 05:51] LABS: Mucous, Urine 0 SEEN /hpf (<or=2+); Red Blood Cells-Urine 0 SEEN /hpf (0-5); Squamous Epithelial Cells - UA 0 SEEN /hpf (0-5); White Blood Cells 0 SEEN /hpf (0-5)
[2022-02-10 06:00] LABS: Color, Urine Yellow (Yellow); Glucose, Dipstick Normal (Normal); Ketone-Dipstick Negative (Negative); Leukocyte Esterase-Dipstick Negative /ul (Negative); Nitrite-Dipstick Negative (Negative); Occult Blood-Urine Negative /ul (Negative); Protein-Dipstick Negative (Negative); Urine Bilirubin Dipstick Negative (Negative); Urine Clarity Clear (Clear); Urine Urobilinogen Normal (Normal)
[2022-02-10 06:09] LABS: Bacteria RARE /hpf (None Seen)
[2022-02-10 06:26] VITALS: BP 156/71; PULSE 53; RESP 12; O2SAT 97
--- NOTE | 2022-02-10 06:27 | ED.RN ---
REPORT GIVEN TO KANDACE.
--- NOTE | 2022-02-10 06:32 | NURSING ---
CALLED [facility], ETA IS 2 HRS
== END 2022-02-10 08:44 | disposition skilled nursing facility (03) ==
PROVIDERS: Emergency Provider Student in an Organized Health Care Education/Training Program; PCP Family Medicine; Visit Provider Student in an Organized Health Care Education/Training Program
DX: S09.90XA Unspecified injury of head, initial encounter (principal); F03.91 Unspecified dementia, unspecified severity, with behavioral disturbance; W19.XXXA Unspecified fall, initial encounter; Y92.129 Unspecified place in nursing home as the place of occurrence of the external cause; Y93.89 Activity, other specified; I10 Essential (primary) hypertension; K21.9 Gastro-esophageal reflux disease without esophagitis; Z79.899 Other long term (current) drug therapy
CPT/HCPCS: 36415; 70450; 71045; 72170; 80053; 80164; 81001; 85025; 99284; A4216

== ENCOUNTER 2022-02-13 00:38 | Emergency (ER) | payer MEDICARE, BC, SELFPAY ==
[2022-02-13 00:40] VITALS: BP 135/80; PULSE 56; RESP 16; TEMP 36.7; O2SAT 95; BMI 25.0
--- NOTE | 2022-02-13 00:56 | CT_ITS ---
STUDY: CT BRAIN WITHOUT CONTRAST REASON FOR EXAM: Male, 81 years old. head injury RADIATION DOSAGE (If Supplied By Facility): CTDIvol = ( 44.99 ) mGy, DLP = ( 829.85 ) mGycm TECHNIQUE: Transaxial CT imaging of the brain was performed without administration of intravenous contrast material. Individualized dose optimization techniques were used for this CT. COMPARISON: No relevant priors. FINDINGS: Normal soft tissue structures. Normal calvarium. Increased size of the ventricles and extra-axial spaces for the patient''s age. Normal white matter tracts of the cerebral hemispheres. Normal basal ganglia and thalami. Normal brainstem. Normal cerebellum. There is no intracranial hemorrhage. There are no findings of an acute ischemic infarction. Normal visualized paranasal sinuses. CT/Brain/Head without Contrast IMPRESSION: There is atrophy. Otherwise normal Unenhanced CT scan of the brain. Electronically Signed: Mesfin Laroes MD at 2:00 EDT ,
--- NOTE | 2022-02-13 00:56 | CT_ITS ---
STUDY: CT CERVICAL SPINE WITHOUT CONTRAST REASON FOR EXAM: Male, 81 years old. fall RADIATION DOSAGE (If Supplied By Facility): CTDIvol = ( 14.45 ) mGy, DLP = ( 314.86 ) mGycm TECHNIQUE: High resolution transaxial imaging was performed without contrast material. Sagittal and coronal images were reconstructed. Individualized dose optimization techniques were used for this CT. COMPARISON: None FINDINGS: Normal craniovertebral junction. Normal anterior atlantoaxial articulation. Normal odontoid process. Normal cervical lordosis. Normal vertebral bodies and posterior osseous elements. C2-3: Normal endplates. Normal disc height and morphology. Normal central canal and intervertebral neuroforamina. C3-4: Normal endplates. Normal disc height and morphology. Normal central canal and intervertebral neuroforamina. C4-5: Normal endplates. Normal disc height and morphology. Normal central canal and intervertebral neuroforamina. C5-6: Normal endplates. Normal disc height and morphology. Normal central canal and intervertebral neuroforamina. C6-7: Normal endplates. Normal disc height and morphology. Normal central canal and intervertebral neuroforamina. C7-T1: Normal endplates. Normal disc height and morphology. Normal central canal and intervertebral neuroforamina. Normal visualized soft tissue structures. CT/Spine Cervical without Contras IMPRESSION: Normal unenhanced CT examination of the cervical spine. Electronically Signed: Mesfin Larose MD at 2:02 EDT ,
--- NOTE | 2022-02-13 01:04 | ED.VIS.FALL ---
HPI HPI - Fall History of Present Illness Chief Complaint: Fall Informant: patient and family Narrative Narrative: Found on the ground at [place] history of dementia. Has been there for 2 years. Son is currently present. Reports had a fall on seen here with negative imaging. Patient does not ambulate any assistance. No anticoagulation medicines. Percent started new sleeping medicine this past week. He walks at night. Patient has no complaints. Paperwork presents DNR CCA. No intubation. Prior similar symptoms: Yes PFSH PFSH Medical History Alcoholism Cognitive and behavioral changes Dementia Dysthymic disorder GERD (gastroesophageal reflux disease) Hypertension Unintended weight loss Home Medications finasteride 5 mg PO DAILY 06/06/21 [History Last Taken 06/06/21] melatonin 8 mg PO QHS 06/06/21 [History Last Taken 06/05/21] sertraline 150 mg PO DAILY 06/06/21 [History Last Taken 06/06/21] acetaminophen 1,000 mg PO Q6H PRN PRN #0 tab 06/15/21 [Rx Last Taken Unknown] donepezil 10 mg PO DAILY #0 tab 06/15/21 [Rx Last Taken Unknown] mirtazapine 7.5 mg PO QHS #0 tab 06/15/21 [Rx Last Taken Unknown] divalproex 125 mg PO BID 08/05/21 [History Last Taken Unknown] hydroxyzine pamoate 25 mg PO BID PRN 08/05/21 [History Last Taken Unknown] propranolol 30 mg PO BID 10/01/21 [History Last Taken Unknown] sertraline 100 mg PO QHS 10/01/21 [History Last Taken Unknown] Allergy/AdvReac Type Severity Reaction Status Date / Time memantine [From Namenda] Allergy Other Verified 02/10/22 03:27 mushroom Allergy Other Verified 02/10/22 03:27 rivastigmine [From Exelon] Allergy Other Verified 02/10/22 03:27 dairy AdvReac Other Uncoded 02/10/22 03:27 Social History household members: other details: Nursing facility Smoking Status: Never smoker alcohol intake: former substance use type: does not use ROS ROS ED Review of Systems ROS Unobtainable: other Details: Limited due to dementia however has no complaints. EXAM Physical Exam Const Vital Signs: 02/13/22 00:40 02/13/22 02:03 02/13/22 02:15 Temperature 98.1 F Temperature Source Temporal Pulse Rate 56 L 61 Respiratory Rate 16 16 Respiratory Effort Normal Non-Labored Respiratory Depth Normal Respiratory Pattern Normal Blood Pressure 135/80 H 124/78 H Blood Pressure Mean 98 Pulse Ox 95 95 94 Oxygen Delivery Method Room Air Room Air Positive well nourished and well developed General Appearance ED: well developed and NAD HEENT Reports TM's clear and moist mucous membranes normocephalic and atraumatic Tympanic Membrane ED: Yes TM's clear Eyes PERRL, EOMs intact bilaterally and conjunctivae normal General Eye ED: Yes normal appearance of both eyes Neck no lymphadenopathy and supple General: Negative for tenderness Chest Wall Chest: Negative for tenderness Resp normal respiratory effort and normal air movement Effort and Inspection: symmetric chest movement; Negative for respiratory distress Cardio regular rate, regular rhythm and no murmurs Peripheral Pulses: pulses 2+ throughout GI normal to inspection, nondistended, normoactive bowel sounds and non-tender Palpation: Negative for guarding or rebound tenderness present Back/Spine no CVA tenderness and no thoracic nor lumbar tenderness Extremity normal to inspection General Extremety ED: Negative for edema or tenderness General Extremity: Negative for edema Neuro no sensory deficits noted Neuro Narrative: Pleasantly demented at baseline. Sensorium / Orientation: awake and alert Skin no rashes or lesions noted and no wounds MDM MDM MDM Narrative Medical decision making narrative: Patient vital stable no acute distress. Reported unwitnessed fall on the ground. There is no signs of injury. Trauma scans head and neck negative. Baseline per son. Discharged back to facility with son. Son will speak with facility along with nursing call report possibly stopping the sleep aid medications as he is fallen twice since then. All questions answered. Radiography Diagnostic Testing: Clinical Impression(s) from Imaging Studies Brain CT 02/13/22 00:56 IMPRESSION: There is atrophy. Otherwise normal Unenhanced CT scan of the brain. Electronically Signed: Mesfin Larose MD at 2:00 EDT , Cervical Spine CT 02/13/22 00:56 IMPRESSION: Normal unenhanced CT examination of the cervical spine. Electronically Signed: Mesfin Larose MD at 2:02 EDT , Discharge Plan Triage Chief Complaint: Fall ED Provider: Nathan Clarke Dx/Rx/DC Orders Clinical Impression: Fall, Alzheimer disease Instructions: ED Fall Prevention Prescriptions: No Action melatonin 5 mg Tablet 8 mg PO QHS RF: 0 sertraline 50 mg tablet 150 mg PO DAILY RF: 0 finasteride 5 mg tablet 5 mg PO DAILY RF: 0 donepezil 10 mg Tablet 10 mg PO DAILY Qty: 0 RF: 0 acetaminophen 500 mg Tablet 1,000 mg PO Q6H PRN PRN (Reason: Pain Score 1-10) Qty: 0 RF: 0 mirtazapine 15 mg Tablet 7.5 mg PO QHS Qty: 0 RF: 0 divalproex 125 mg tablet,delayed release (DR/EC) 125 mg PO BID RF: 0 hydroxyzine pamoate 25 mg capsule 25 mg PO BID PRN (Reason: Agitation) RF: 0 sertraline 100 mg tablet 100 mg PO QHS RF: 0 propranolol 10 mg tablet 30 mg PO BID RF: 0 Primary Care Provider: Maritza Johnson Referrals: Maritza Johnson MD [Primary Care Provider] - Activity Restrictions/Additional Instructions: CT head and neck negative for acute process. Son will discuss with facility and physician there to possibly stop the sleeping medicines at was recently started due to second fall this week. Disposition Disposition: Home, Self Care Discharge Date/Time: 02/13/22 02:43
[2022-02-13 02:03] VITALS: O2SAT 95
[2022-02-13 02:15] VITALS: BP 124/78; PULSE 61; RESP 16; O2SAT 94
--- NOTE | 2022-02-13 02:25 | ED.RN ---
report called to senior care. Son to take patient home by private car.
--- NOTE | 2022-02-13 02:41 | ED.RN ---
upon discharging patient, he was found to have pulled down his depends and wet the bed and pants. Pt was cleaned up and dry depends placed on patient. Pt assisted into wheelchair and taken out to sons vehicle and assisted into the car.
== END 2022-02-13 02:43 | disposition skilled nursing facility (03) ==
PROVIDERS: Emergency Provider Emergency Medicine; PCP Family Medicine; Visit Provider Emergency Medicine
DX: Z04.3 Encounter for examination and observation following other accident (principal); G30.9 Alzheimer's disease, unspecified; F02.81 Dementia in other diseases classified elsewhere, unspecified severity, with behavioral disturbance; I10 Essential (primary) hypertension; K21.9 Gastro-esophageal reflux disease without esophagitis; Z66 Do not resuscitate; Z79.899 Other long term (current) drug therapy
CPT/HCPCS: 70450; 72125; 99284

== ENCOUNTER 2022-03-05 00:55 | Emergency (ER) | payer MEDICARE, BC, SELFPAY ==
[2022-03-05 00:56] VITALS: BP 160/99; PULSE 58; RESP 15; TEMP 37.1; O2SAT 93; BMI 25.0
--- NOTE | 2022-03-05 01:46 | CT_ITS ---
STUDY: CT BRAIN WITHOUT CONTRAST REASON FOR EXAM: Male, 81 years old. Trauma RADIATION DOSAGE (If Supplied By Facility): CTDIvol = ( 44.99 ) mGy, DLP = ( 863.60 ) mGycm TECHNIQUE: Transaxial CT imaging of the brain was performed without administration of intravenous contrast material. Individualized dose optimization techniques were used for this CT. COMPARISON: A fifth 2021 FINDINGS: Small left posterior scalp subgaleal hematoma. Normal calvarium. There is moderate cerebral volume loss with widening of the extra-axial spaces and ventricular dilatation. Normal white matter tracts of the cerebral hemispheres. Normal basal ganglia and thalami. Normal brainstem. Normal cerebellum. There is no intracranial hemorrhage. There are no findings of an acute ischemic infarction. Left maxillary sinus mucosal thickening. Bilateral ocular lens replacements. CT/Brain/Head without Contrast IMPRESSION: Left posterior scalp hematoma. No acute abnormal intracranial finding. Electronically Signed: Reza Joel MD at 2:17 EDT ,
--- NOTE | 2022-03-05 02:15 | EDS_ITS ---
HPI HPI - Fall History of Present Illness Chief Complaint: Fall Informant: family Occured/Mechanism Occurred: Hours (2) Mechanism/Context: Yes same level fall Pain/Injury Pain Location: head Narrative Narrative: Patient has severe dementia, he is in [facility] memory unit, son brought him after he had an unwitnessed fall, falling back and hitting his head on the floor. There is no loss of consciousness or vomiting. His dementia is severe enough that he is unable to answer review of system questions. He is alert, cooperative when we show him how to follow the commands we need him to, and at baseline according to the son. He has had multiple falls in the past, seems to be getting more frequent, recently started on Depakote as a response to this and he has been followed for the falls. [facility] Medical History Alcoholism Cognitive and behavioral changes Dementia Dysthymic disorder GERD (gastroesophageal reflux disease) Hypertension Unintended weight loss Home Medications finasteride 5 mg PO DAILY 06/06/21 [History Last Taken 06/06/21] melatonin 8 mg PO QHS 06/06/21 [History Last Taken 06/05/21] sertraline 150 mg PO DAILY 06/06/21 [History Last Taken 06/06/21] acetaminophen 1,000 mg PO Q6H PRN PRN #0 tab 06/15/21 [Rx Last Taken Unknown] donepezil 10 mg PO DAILY #0 tab 06/15/21 [Rx Last Taken Unknown] mirtazapine 7.5 mg PO QHS #0 tab 06/15/21 [Rx Last Taken Unknown] divalproex 125 mg PO BID 08/05/21 [History Last Taken Unknown] hydroxyzine pamoate 25 mg PO BID PRN 08/05/21 [History Last Taken Unknown] propranolol 30 mg PO BID 10/01/21 [History Last Taken Unknown] sertraline 100 mg PO QHS 10/01/21 [History Last Taken Unknown] Allergy/AdvReac Type Severity Reaction Status Date / Time memantine [From Namenda] Allergy Other Verified 02/10/22 03:27 mushroom Allergy Other Verified 02/10/22 03:27 rivastigmine [From Exelon] Allergy Other Verified 02/10/22 03:27 dairy AdvReac Other Uncoded 02/10/22 03:27 Social History household members: other details: Nursing facility Smoking Status: Never smoker alcohol intake: former substance use type: does not use ROS ROS ED Review of Systems ROS Unobtainable: due to mental condition EXAM Physical Exam Const Vital Signs: 03/05/22 00:56 03/05/22 00:59 Temperature 98.8 F Temperature Source Temporal Pulse Rate 58 L Respiratory Rate 15 Respiratory Effort Normal Respiratory Depth Normal Respiratory Pattern Normal Blood Pressure 160/99 H Blood Pressure Mean 119 Pulse Ox 93 Oxygen Delivery Method Room Air Room Air Positive well nourished and well developed General Appearance ED: well developed and NAD HEENT Reports TM's clear and nasal mucous membranes and turbinates normal HEENT Narrative: Small contusion and hematoma high at occiput, no crepitance or depression. No laceration. trauma Face and Sinus: Negative for facial tenderness Tympanic Membrane ED: Yes TM's clear Eyes PERRL and EOMs intact bilaterally Visual Acuity: other Other Details: no entrapment or pain with extraocular movements Neck full ROM and supple General: Negative for tenderness Chest Wall inspection of chest normal and palpation of chest normal Chest: symmetrical chest wall rise; Negative for crepitus or tenderness Resp normal respiratory effort and clear to auscultation bilaterally Percussion: other equal BS bilat Cardio no murmurs Rate: regular rate Rhythm: regular rhythm GI normal to inspection, nondistended, normoactive bowel sounds, soft to palpation and non-tender Back/Spine normal ROM Cervical Spine: Negative for cervical spine tenderness Thoracic Spine / Upper Back: Negative for thoracic spinal tenderness Lumbar Spine / Lower Back: Negative for lumbar spinal tenderness Extremity normal to inspection and full ROM General Extremety ED: Negative for tenderness Neuro CN's II-XII intact bilaterally, moves all extremities, no focal motor deficits and no sensory deficits noted Rush Coma Scale: document GCS findings (GCS 14, which is the patient's baseline given confusion of dementia) Spontaneous Obeys Commands Confused 14 Sensorium / Orientation: awake and alert Psych mental status grossly normal and thought process normal Skin no wounds Lesions: no lesions Rashes: no rashes MDM MDM MDM Narrative Medical decision making narrative: CT was obtained, it is negative for anything acute intracranial. Discussed with patient and son they are comfortable going back to the assisted living facility at this time. I do not think he needs more of work-up given that this is been an ongoing issue that is currently being addressed with medication adjustments and they are in agreement. Radiography Diagnostic Testing: Clinical Impression(s) from Imaging Studies Brain CT 03/05/22 01:46 IMPRESSION: Left posterior scalp hematoma. No acute abnormal intracranial finding. Electronically Signed: Reza Joel MD at 2:17 EDT , Discharge Plan Triage Chief Complaint: Fall ED Provider: Navi Lombardo Dx/Rx/DC Orders Clinical Impression: Traumatic hematoma of scalp, Alzheimer disease, Accidental fall Instructions: ED Head Injury (Adult) Prescriptions: No Action melatonin 5 mg Tablet 8 mg PO QHS RF: 0 sertraline 50 mg tablet 150 mg PO DAILY RF: 0 finasteride 5 mg tablet 5 mg PO DAILY RF: 0 donepezil 10 mg Tablet 10 mg PO DAILY Qty: 0 RF: 0 acetaminophen 500 mg Tablet 1,000 mg PO Q6H PRN PRN (Reason: Pain Score 1-10) Qty: 0 RF: 0 mirtazapine 15 mg Tablet 7.5 mg PO QHS Qty: 0 RF: 0 divalproex 125 mg tablet,delayed release (DR/EC) 125 mg PO BID RF: 0 hydroxyzine pamoate 25 mg capsule 25 mg PO BID PRN (Reason: Agitation) RF: 0 sertraline 100 mg tablet 100 mg PO QHS RF: 0 propranolol 10 mg tablet 30 mg PO BID RF: 0 Primary Care Provider: Maritza Johnson Referrals: Maritza Johnson MD [Primary Care Provider] - As Needed Disposition Disposition: Home, Self Care
[2022-03-05 02:36] VITALS: PULSE 67; RESP 15; O2SAT 98
== END 2022-03-05 02:37 | disposition home or self-care (01) ==
PROVIDERS: Emergency Provider Emergency Medicine; PCP Family Medicine; Visit Provider Emergency Medicine
DX: S00.03XA Contusion of scalp, initial encounter (principal); G30.9 Alzheimer's disease, unspecified; F02.80 Dementia in other diseases classified elsewhere, unspecified severity, without behavioral disturbance, psychotic disturbance, mood disturbance, and anxiety; W18.30XA Fall on same level, unspecified, initial encounter; Y92.099 Unspecified place in other non-institutional residence as the place of occurrence of the external cause; I10 Essential (primary) hypertension; K21.9 Gastro-esophageal reflux disease without esophagitis; R29.6 Repeated falls; Z79.899 Other long term (current) drug therapy
CPT/HCPCS: 70450

== ENCOUNTER 2022-03-05 11:15 | Inpatient (IN) | payer MEDICARE, BC, SELFPAY ==
--- NOTE | 2022-03-05 11:55 | RAD_ITS ---
STUDY: X-RAY CHEST REASON FOR EXAM: Male, 81 years old. Preop for hip fracture TECHNIQUE: 2 AP portable views COMPARISON: None. FINDINGS: The lungs are clear and expanded. There is no demonstrated pleural abnormality. Normal size heart. Normal mediastinum and trey. Normal visualized pulmonary arteries. Normal visualized aortic arch and descending thoracic aorta. Normal visualized thoracic spine. Normal visualized ribs, clavicles, and shoulders. There is no demonstrated abnormality of the visualized soft tissue structures of the upper abdomen. RAD/Chest 1 View IMPRESSION: No acute pulmonary process Electronically Signed: Jeffry Beasley MD at 13:45 EDT ,
--- NOTE | 2022-03-05 11:55 | RAD_ITS ---
STUDY: X-RAY - PELVIS AND RIGHT HIP REASON FOR EXAM: Male, 81 years old. Acute pain after a fall TECHNIQUE: 5 views of the pelvis and hip. COMPARISON: None. FINDINGS: There is a non-specific bowel gas pattern. Normal visualized soft tissue structures. There is diffuse demineralization of the osseous structures. There is narrowing with cortical sclerosis and osteophyte formation of the sacroiliac joint consistent with degenerative osteoarthritic changes. Normal bilateral superior and inferior pubic rami. Normal pubic symphysis. Normal bilateral ischial tuberosities. There is an acute, displaced, angulated intertrochanteric fracture of the right femur with varus angulation at the fracture site. There is arthritic narrowing of the right hip joint but no subluxation or dislocation. Age consistent left hip arthrosis without left femoral fracture RAD/HIP, UNI W/ Pelvis 2-3 Views IMPRESSION: Acute, comminuted, angulated intertrochanteric fracture of the right femur with varus angulation at the fracture site. Orthopedic surgery consultation recommended Age consistent right hip arthrosis without dislocation or subluxation Age consistent SI joint and left hip arthrosis No demonstrated pelvic fracture Electronically Signed: Jeffry Beasley MD at 13:44 EDT ,
--- NOTE | 2022-03-05 12:55 | CT_ITS ---
STUDY: CT BRAIN WITHOUT CONTRAST REASON FOR EXAM: Male, 81 years old. Trauma RADIATION DOSAGE (If Supplied By Facility): CTDIvol = ( 44.99 ) mGy, DLP = ( 863.60 ) mGycm TECHNIQUE: Transaxial CT imaging of the brain was performed without administration of intravenous contrast material. Individualized dose optimization techniques were used for this CT. COMPARISON: A fifth 2021 FINDINGS: Small left posterior scalp subgaleal hematoma. Normal calvarium. There is moderate cerebral volume loss with widening of the extra-axial spaces and ventricular dilatation. Normal white matter tracts of the cerebral hemispheres. Normal basal ganglia and thalami. Normal brainstem. Normal cerebellum. There is no intracranial hemorrhage. There are no findings of an acute ischemic infarction. Left maxillary sinus mucosal thickening. Bilateral ocular lens replacements. CT/Brain/Head without Contrast IMPRESSION: Left posterior scalp hematoma. No acute abnormal intracranial finding. Electronically Signed: Reza Joel MD at 2:17 EDT ,
[2022-03-05 13:41] LABS: Valproic Acid (Depakene) Level 34 ug/mL (50-100)
[2022-03-05 13:42] LABS: Troponin-I HS < 3 pg/mL (3.0-78.0)
[2022-03-05 13:49] LABS: Bacteria 0 SEEN /hpf (None Seen); Mucous, Urine 0 SEEN /hpf (<or=2+); Red Blood Cells-Urine 0 SEEN /hpf (0-5); Squamous Epithelial Cells - UA 0 SEEN /hpf (0-5); White Blood Cells 0 SEEN /hpf (0-5)
[2022-03-05 13:51] LABS: Absolute Lymphocyte Count 1.55 X10^3/uL (0.83-4.51); Absolute Neutrophil Count 4.3 X10^3/uL (2.0-7.7); Basophil# 0.07 X10^3/uL; Basophil% 0.9 % (0-1); Eosinophil# 1.13 X10^3/uL; Eosinophils% 14.6 % (0-5); Hematocrit 40.2 % (40-54); Hemoglobin 13.3 g/dL (13.0-16.5); Lymphocyte # 1.55 X10^3/ul (0.83-4.51); Mean Corp Hgb Conc 33.1 g/dL (32-36); Mean Corpuscular Volume 93.7 fL (80-94); Mean Platelet Vol. 9.5 fl (6.2-12.0); Monocyte# 0.72 X10^3/uL; Monocyte% 9.3 % (0-10); NRBC Flagged by Analyzer 0 % (0-5); Neutrophil # 4.25 X10^3/uL (2.7-7.7); Neutrophil % 54.8 % (47-70); Platelet Count 189 K/mm3 (150-450); RBC Distribution Width CV 12.9 % (11.6-14.6); RBC Distribution Width SD 44.6 fl (35.1-43.9); Red Blood Count 4.29 M/mm3 (4.6-6.2); White Blood Count 7.8 K/mm3 (4.4-11.0)
[2022-03-05 13:53] LABS: Anion Gap 4 (5-15); BUN 16 mg/dL (7-18); BUN/Creat Ratio 16.8 RATIO (10-20); Calcium,Total 8.6 mg/dL (8.5-10.1); Chloride 106 mmol/L (98-107); Creatinine, Serum 0.96 mg/dL (0.70-1.30); EST Glomerular Filtration Rate 80 mL/min (>60); Est Glom Filt Rate - Afr Amer 97 mL/min (>60); Estimated Creatinine Clearance 58.39 ml/min; Glucose 136 mg/dL (74-106); Sodium Level 142 mmol/L (136-145)
--- NOTE | 2022-03-05 14:08 | EDS_ITS ---
HPI HPI - Fall History of Present Illness Chief Complaint: Fall Detail of Chief Complaint: Fall that occurred this morning at extended-care facility. Informant: patient and EMS Narrative Narrative: Patient presents to the emergency department after sustaining a fall this morning at the longterm. Patient is in the memory care unit. Patient also had a fall last evening. Patient was thought to maybe have some seizure- like activity after the fall this morning. Patient apparently was incontinent of urine and stool. On arrival he is a very poor historian really cannot give any history. He denies headache or neck pain. He denies chest pain or abdominal pain. Really denies any pain anywhere. Patient does cry out when he attempts to move in certain directions. Patient has history of dementia, GERD, and hypertension. [facility] Medical History Alcoholism Cognitive and behavioral changes Dementia Dysthymic disorder GERD (gastroesophageal reflux disease) Hypertension Unintended weight loss Home Medications finasteride 5 mg PO DAILY 06/06/21 [History Last Taken 06/06/21] melatonin 8 mg PO QHS 06/06/21 [History Last Taken 06/05/21] sertraline 150 mg PO DAILY 06/06/21 [History Last Taken 06/06/21] acetaminophen 1,000 mg PO Q6H PRN PRN #0 tab 06/15/21 [Rx Last Taken Unknown] donepezil 10 mg PO DAILY #0 tab 06/15/21 [Rx Last Taken Unknown] mirtazapine 7.5 mg PO QHS #0 tab 06/15/21 [Rx Last Taken Unknown] divalproex 125 mg PO BID 08/05/21 [History Last Taken Unknown] hydroxyzine pamoate 25 mg PO BID PRN 08/05/21 [History Last Taken Unknown] propranolol 30 mg PO BID 10/01/21 [History Last Taken Unknown] sertraline 100 mg PO QHS 10/01/21 [History Last Taken Unknown] Allergy/AdvReac Type Severity Reaction Status Date / Time memantine [From Namenda] Allergy Other Verified 02/10/22 03:27 mushroom Allergy Other Verified 02/10/22 03:27 rivastigmine [From Exelon] Allergy Other Verified 02/10/22 03:27 dairy AdvReac Other Uncoded 02/10/22 03:27 Social History household members: other details: Nursing facility Smoking Status: Never smoker alcohol intake: former substance use type: does not use ROS ROS ED Review of Systems ROS Unobtainable: due to mental condition EXAM Physical Exam Const Positive well nourished and well developed General Appearance ED: well developed and NAD HEENT Reports TM's clear and moist mucous membranes HEENT Narrative: No evidence of trauma to his head. No C-spine tenderness on palpation. normocephalic and atraumatic; Negative for trauma or tenderness Tympanic Membrane ED: Yes TM's clear Eyes PERRL and EOMs intact bilaterally General Eye ED: Negative for pale conjunctiva or scleral icterus Neck no lymphadenopathy, supple and no JVD General: Negative for tenderness Chest Wall inspection of chest normal and palpation of chest normal Chest: Negative for tenderness Resp normal respiratory effort and clear to auscultation bilaterally Effort and Inspection: Negative for respiratory distress or pain with movement Auscultation: Negative for rhonchi, wheezes or diminished lung sounds Cardio regular rate, regular rhythm, S1 normal heart sound, S2 normal heart sound and no murmurs Peripheral Pulses: pulses 2+ throughout GI normal to inspection, nondistended, normoactive bowel sounds, soft to palpation, non-tender, non-distended and no masses Back/Spine no CVA tenderness and no thoracic nor lumbar tenderness Extremity Extremity Narrative: Patient cries out in pain when I try to move his right hip. There is no shortening or external rotation noted. He is neurovascular intact distally. General Extremety ED: Negative for edema General Extremity: Negative for edema Neuro oriented x3, CN's II-XII intact bilaterally, no sensory deficits noted and gait normal Sensorium / Orientation: awake, alert, oriented to person, oriented to place and oriented to time Motor Exam: strength 5/5 throughout and strength abnormal Psych mental status grossly normal Skin no rashes or lesions noted and no wounds MDM MDM MDM Narrative Medical decision making narrative: IV line established on arrival. CT scan of the brain without contrast showed chronic involutional changes. Lab work was unremarkable. X-ray of right pelvis and hip obtained showed intertrochanteric hip fracture. Case will be discussed with hospitalist evaluate for admission. I discussed case with orthopedic surgeon on-call Dr. Jw Estes who will see patient for possible operative intervention. Lab Data Attestation: I reviewed the patient's lab results. Radiography Diagnostic Testin views right hip and pelvis x-rays obtained showed fracture of the right hip intertrochanteric area in my interpretation. Radiology was in agreement. 1 view chest x-ray obtained interpreted by myself no acute disease process. Radiology in agreement. EKG Initial EKG: Attestation: I personally reviewed and interpreted this EKG as follows: Comments: Sinus rhythm with a ventricular rate of 53 bpm with no acute ST segment changes Discharge Plan Triage Chief Complaint: Fall ED Provider: Renita Tay Dx/Rx/DC Orders Clinical Impression: Fall, Closed fracture of right hip, Seizure Prescriptions: No Action melatonin 5 mg Tablet 8 mg PO QHS RF: 0 sertraline 50 mg tablet 150 mg PO DAILY RF: 0 finasteride 5 mg tablet 5 mg PO DAILY RF: 0 donepezil 10 mg Tablet 10 mg PO DAILY Qty: 0 RF: 0 acetaminophen 500 mg Tablet 1,000 mg PO Q6H PRN PRN (Reason: Pain Score 1-10) Qty: 0 RF: 0 mirtazapine 15 mg Tablet 7.5 mg PO QHS Qty: 0 RF: 0 divalproex 125 mg tablet,delayed release (DR/EC) 125 mg PO BID RF: 0 hydroxyzine pamoate 25 mg capsule 25 mg PO BID PRN (Reason: Agitation) RF: 0 sertraline 100 mg tablet 100 mg PO QHS RF: 0 propranolol 10 mg tablet 30 mg PO BID RF: 0 Primary Care Provider: Maritza Johnson Referrals: Maritza Johnson MD [Primary Care Provider] - Disposition Disposition: Acute Care Hospital [facility]
[2022-03-05 14:11] VITALS: TEMP -17.7; TEMP 0
--- NOTE | 2022-03-05 14:15 | HP.PCM.HOS_ITS ---
HPI - General General Date of Admission: 03/05/22 Date of Service: 03/05/22 Chief Complaint: Fall, R hip pain, ? seizure activity. HPI Narrative The patient is an 81 y/o M w/ PMHx: Anxiety and Depression/potential bipolar disorder, HTN, Cognitive impairment/Alzheimer's dementia with unclear behavioral disturbance history, History of EtOH abuse who initially presented to the [facility] ED on 03/05/22 with history of mechanical fall earlier in the morning in the [facility] unit prompting his son to bring him in given that it was unwitnessed and that he hit his head on the floor with evidence of a left posterior scalp hematoma with per staff report no specific loss of consciousness nor any nausea or vomiting following with history of frequent falls although they seem to be increasing more recently prompting evaluation with no acute findings upon evaluation aside CT head w/ L posterior scalp hematoma with return to his facility; however, patient had recurrent fall with unclear head trauma, noted to be incontinent of both urine and stool and was reportedly twitching but no seizure history. Discussed with son and despite no formal seizure history has been having extremity shaking-jerking for nearly 6 months. Family notes occurs when he seems to be asleep and awake but not interactive during. Also, can have from description tremors as well. Initial early AM presentation Work-up in the ED included T98.8, heart rate 67, BP 160/99, respiratory rate 15, 98% on room air, CBC with WC 7.8, hemoglobin 13.3, platelet 189 without marked shift, unremarkable BMP, glucose 136, troponin less than 3, urinalysis pending upon requested evaluation of patient, valproic acid level 34, CT of the brain with a left posterior scalp hematoma with otherwise no acute intracranial findings. Afternoon 03/05/22 evaluation work-up included repeat CT head without acute changes/new findings, plain film right hip with R intertrochanteric hip fractur es, trop normal, CBC unremarkable, BMP pending, EKG with SB with no acute evidence of ischemia, CXR with no acute findings. ED discussed case with Dr. Estes for OR consideration. Upon evaluation in the ED patient denies any pain but per discussion with his son who is present he intermittently forgets and will try to lift his leg and grimaces in pain. [facility] Medical History (Updated 03/05/22 @ 15:[address] Kayley Ambrocio MD) Alcoholism Cognitive and behavioral changes Dementia Dysthymic disorder GERD (gastroesophageal reflux disease) Hypertension Unintended weight loss Home Medications finasteride 5 mg PO DAILY 06/06/21 [History Last Taken 06/06/21] melatonin 8 mg PO QHS 06/06/21 [History Last Taken 06/05/21] sertraline 150 mg PO DAILY 06/06/21 [History Last Taken 06/06/21] acetaminophen 1,000 mg PO Q6H PRN PRN #0 tab 06/15/21 [Rx Last Taken Unknown] donepezil 10 mg PO DAILY #0 tab 06/15/21 [Rx Last Taken Unknown] mirtazapine 7.5 mg PO QHS #0 tab 06/15/21 [Rx Last Taken Unknown] divalproex 125 mg PO BID 08/05/21 [History Last Taken Unknown] hydroxyzine pamoate 25 mg PO BID PRN 08/05/21 [History Last Taken Unknown] propranolol 30 mg PO BID 10/01/21 [History Last Taken Unknown] sertraline 100 mg PO QHS 10/01/21 [History Last Taken Unknown] Allergy/AdvReac Type Severity Reaction Status Date / Time memantine [From Namenda] Allergy Other Verified 02/10/22 03:27 mushroom Allergy Other Verified 02/10/22 03:27 rivastigmine [From Exelon] Allergy Other Verified 02/10/22 03:27 dairy AdvReac Other Uncoded 02/10/22 03:27 Family History (Updated 03/05/22 @ 15:[address] Kayley Ambrocio MD) Mother Diabetes Cancer Heart disease Father Cancer Hx Esophageal cancer. Surgical History (Updated 03/05/22 @ 15:[address] Kayley Ambrocio MD) History of hand surgery Status post surgical removal of malignant neoplasm of skin Social History (Updated 03/05/22 @ 15:[address] Kayley Ambrocio MD) household members: other details: Nursing facility Smoking Status: Never smoker alcohol intake: former details: Sober > 10 years. substance use type: does not use ROS ROS Narrative ROS PER FAMILY PRESENT AND SNF STAFF, patient with notable dementia and unable to give history. Admission Review of Systems: CONSTITUTIONAL: No fever, chills, + weakness or fatigue, weight loss. HEENT: Eyes: No visual loss, blurred vision, double vision or yellow sclerae. Ears, Nose, Throat: No hearing loss, sneezing, congestion, runny nose or sore throat. SKIN: No rash or itching, lesions, wounds. CARDIOVASCULAR: No chest pain, chest pressure or chest discomfort, palpitations, edema, orthopnea, syncopal events. RESPIRATORY: No shortness of breath, cough or sputum, wheezing, hemoptysis. GASTROINTESTINAL: + anorexia, No nausea, vomiting or diarrhea, abdominal pain, melena, BRBPR. GENITOURINARY: No dysuria, frequency, urgency or retention. NEUROLOGICAL: + Intermittent tremors, twitching/jerking, recent loss of bowel and bladder with jerking extremities. No headache, dizziness, syncope, paralysis, ataxia, numbness or tingling in the extremities, focal weakness. MUSCULOSKELETAL: + muscle, back pain, joint pain or stiffness. HEMATOLOGIC: No anemia, bleeding or bruising. LYMPHATICS: No enlarged nodes. No history of splenectomy. PSYCHIATRIC:+ history of depression or anxiety. ENDOCRINOLOGIC: No reports of sweating, cold or heat intolerance. No polyuria or polydipsia. ALLERGIES: No history of asthma, hives, eczema or rhinitis. Physical Exam Narrative Physical Examination: General: Awake, alert, oriented to self and some events but significant underlying dementia, does not recall recent fall, remains cooperative and follows commands, seated upright, denies any pain but does not even recall breaking his hip or falling. Skin: Normal color, normal turgor, no icterus, no cyanosis except occasional staged ecchymoses. HEENT: AT except recent hematoma/NC, EOMI, PERRLA, dry MM, no carotid bruits or JVD noted. Lungs: Diminished, greater bases, appropriate effort effort, no rales, ronchi or wheezing. Heart: Currently regular rate and rhythm; no gallop, rub audible. Abdomen: Soft, NTTP, ND, mildly distant BS, no HSM. Extremities: No cyanosis, clubbing, or edema. Status post fall with right hip fracture with external rotation and shortened. Neurological: Patient awake, alert, oriented as noted, cognitive function severely decreased baseline with underlying severe dementia, son reports currently near baseline intact; pupils equally reactive to light and accommodation, cranial nerves grossly normal, moving all 4 extremities except limited when pain elicited with RLE movement, continues despite encouragement, strength accordingly severe globally decreased. Psychiatric: Affect appears flat, closes eyes but will open and respond intermittently, no acute evidence of depressive or anxiety feelings. Results Lab / Micro Data Result Diagrams: 03/05/22 11:50 03/05/22 11:50 Assessment & Plan Assessment/Plan (1) Fall: QUALIFIERS: Encounter type: initial encounter Qualified Code(s): W19.XXXA - Unspecified fall, initial encounter (2) Closed fracture of right hip: QUALIFIERS: Encounter type: initial encounter Qualified Code(s): S72.001A - Fracture of unspecified part of neck of right femur, initial encounter for closed fracture PLAN: The patient is an 81 y/o M w/ PMHx: Anxiety and Depression/potential bipolar disorder, HTN, Cognitive impairment/Alzheimer's dementia with unclear behavioral disturbance history, History of EtOH abuse who initially presented to the [facility] ED on 03/05/22 with history of mechanical fall earlier in the morning in the [facility] unit prompting his son to bring him in given that it was unwitnessed and that he hit his head on the floor with evidence of a left posterior scalp hematoma with per staff report no specific loss of consciousness nor any nausea or vomiting following with history of frequent falls although they seem to be increasing more recently prompting evaluation with no acute findings upon evaluation aside CT head w/ L posterior scalp hematoma with return to his facility; however, patient had recurrent fall with unclear head trauma, noted to be incontinent of both urine and stool and was reportedly twitching but no seizure history. #1. General debility, R hip pain s/p mechanical fall w/ R intertrochanteric fracture: Plain film noting right intertrochanteric hip fracture. Orthopedic surgery consulted from ED. Will admit to [facility], given ongoing work-up will allow di et with n.p.o. status once surgery appropriate, continue gentle IVFs, obtain TSH, Mag level, betts placement, monitor I/Os, frequent positioning, fall precautions, Pain, anti-emetic regimen. PT/OT following operative intervention. CM consulted for discharge planning. Also, discussed medications as there have been several changes to his regimen per POA report, certainly could be contributing to his falls as well as potentially #2. Per NSQIP with patient age, medical history, especially dementia status at facility with POA decision maker patient with average expected risk, higher e xpected need to return to facility. EKG without acute findings. CXR without acute findings. Labs not marked appearing. Patient does need to have MRI brain as well as EEG and neurology evaluation to complete his potential seizure evaluation. Once this is performed would then proceed to OR. #2. Questionable new-onset seizure: Patient with recurrent fall with reported loss of bowel and bladder and potential twitching. Repeat CT head without acute intracranial pathology with prior noted left posterior scalp hematoma. ED labwork not marked appearing. Will obtain TSH, magnesium, UDS, will maintain on telemetry on seizure precautions, obtain EEG, obtain brain MRI to be cautious. Given no seizure history will defer immediate AED but if recurrent may add/load. Once MRI brain obtained and EEG would obtain Neurology consultation. PRN ativan IV for seizure activity. #3. Cognitive impairment/Alzheimer's dementia with unclear behavioral disturbance history: Potentially Alzheimer's dementia, complicates presentation, maintain on fall and aspiration precautions, therapies as well as case management consulted as noted. #4. Hypertension: Continue home regimen including propranolol with hold parameters as needed, PRN hydralazine. #5. Hyperlipidemia: Not on statin therapy, defer given age #6. Anxiety and depression/potential bipolar disorder: We will continue patient home sertraline, mirtazapine, Depakote home regimen with level obtained as noted. #7. Former alcohol abuse: Encouraged continued sobriety, currently sober for over a decade. #8. BPH: We will continue patient home finasteride regimen. #9. DVT prophylaxis: SCDs, will hold chemoprophylaxis given recent fall with hematoma, add once appropriate #10. CODE status: Patient DALE is his son who is present and also his daughter and living will is currently in place. Discussed CODE status at length including difference between FULL code, DNR-CCA and DNR-CC status. Following discussions about the differences in these status, requested DNR-CCA, no intubation status. Family is interested in Hospice discussions while here and consult has been placed. Advanced Care Planning Face to Face Time: 16 minutes. Charges/Coding Visit Charges Inpatient E&M: 43328 Init Hosp L3 Procedures Hospitalists Procedures: 70935 Advncd Care Plan 30 Min
--- NOTE | 2022-03-05 14:16 | MRI_ITS ---
STUDY: MRI BRAIN WITHOUT CONTRAST REASON FOR EXAM: Male, 81 years old. Seizure- new onset, s/p recent fall TECHNIQUE: Standardized multiplanar fat and water weighted pulse sequences were obtained. COMPARISON: CT head 03/05/2022. FINDINGS: No intracranial mass, mass effect or midline shift. No hemorrhage, territorial infarct or acute ischemia. There is severe cerebral atrophy with widening of the extra-axial spaces and ventricular dilatation. There are a limited number of small white matter hyperintensities, distributed throughout the deep white matter tracts of the cerebral hemispheres, consistent with mild chronic white matter ischemic changes. Normal bilateral basal ganglia. Normal thalami. There is no extra-axial fluid accumulation. Normal flow voids within the major intracranial circulation suggesting patency by spin echo criteria. Normal sella turcica, pituitary gland, infundibular stalk, optic chiasm and hypothalamus. Normal midbrain, blaise and medulla. Normal cerebellum. Normal basal cisterns. Normal bilateral temporal bones. Normal bilateral internal auditory canals. Normal visualized paranasal sinuses. Normal calvarium and skull base. Normal visualized soft tissue structures. MRI/Brain without Contrast IMPRESSION: No acute findings. Mild microvascular ischemic changes. Atrophy. Electronically Signed: Vanessa Hodge MD at 17:21 EDT Reading Location ID and State: [id number] / Tel , Service support ,
[2022-03-05 14:17] VITALS: BP 137/73; PULSE 60; RESP 16; TEMP 36.8; O2SAT 98
[2022-03-05 14:17] LABS: Color, Urine Yellow (Yellow); Glucose, Dipstick Normal (Normal); Ketone-Dipstick Negative (Negative); Leukocyte Esterase-Dipstick Negative /ul (Negative); Nitrite-Dipstick Negative (Negative); Occult Blood-Urine 10 /ul (Negative); Protein-Dipstick Negative (Negative); Specific Gravity, Urine 1.015 (1.002-1.030); Urine Bilirubin Dipstick Negative (Negative); Urine Clarity Clear (Clear); Urine Urobilinogen Normal (Normal); Urine pH 6.5 (5.0 - 8.0)
--- NOTE | 2022-03-05 15:30 | TELEMED_ITS ---
[facility] Tele[facility] has confirmed receipt of a request for visit. This document confirms receipt of the order initiating the consult. To find the results of the consultation, please view the patient's reports for the scanned Telemed Consult.
[2022-03-05 15:46] LABS: AST(SGOT) 24 U/L (15-37); Alanine Aminotransfer ALT/SGPT 34 U/L (16-61); Albumin, Serum 3.1 g/dL (3.2-5.0); Alkaline Phosphatase 60 U/L (45-117); Bilirubin, Direct 0.13 mg/dL (0.00-0.30); Globulin 3.3 g/dL (2.2-4.2); Magnesium 1.6 mg/dL (1.6-2.6); Protein, Total 6.4 g/dL (6.4-8.2)
[2022-03-05 15:56] VITALS: RESP 14; BMI 25.0
[2022-03-05] MEDS: 0.9% Normal Saline 1,000 ML 100 ML IV (16:28)
[2022-03-05 19:51] VITALS: BP 145/80; PULSE 65; RESP 16; TEMP 36.7; O2SAT 96
[2022-03-05] MEDS: oxyCODONE 5 MG Tablet PO (23:11)
[2022-03-05] MEDS: Mirtazapine 15 MG Tablet 7.5 MG PO (23:14)
[2022-03-05] MEDS: Divalproex Sodium 125 MG Tablet 375 MG PO (23:15)
[2022-03-05] MEDS: Propranolol 10 MG Tablet 30 MG PO (23:15)
[2022-03-05] MEDS: Sertraline 100 MG Tablet PO (23:16)
[2022-03-05 23:24] VITALS: BP 150/80; PULSE 73; RESP 18; TEMP 36.7; O2SAT 100
[2022-03-05 23:58] LABS: Amphetamine Urine VISTA NEGATIVE (<1000 ng/mL); Barbiturate Urine VISTA NEGATIVE (< 200 ng/mL); Benzodiazepine Urine VISTA NEGATIVE (< 200 ng/mL); Cocaine Urine VISTA NEGATIVE (< 300 ng/mL); Ecstacy Urine VISTA NEGATIVE (< 500 ng/mL); Methadone Urine VISTA NEGATIVE (< 300 ng/mL); PCP Urine VISTA NEGATIVE (< 25 ng/mL); THC Urine VISTA NEGATIVE (< 50 ng/mL); Vista UDS pH Range 6
[2022-03-06] VITALS (11 sets, daily range): BP systolic 113–145; BP diastolic 51–95; PULSE 59–124; RESP 16–18; TEMP 36.2–37.1; O2SAT 92–98; BMI 25.0; BMI 22.4
--- NOTE | 2022-03-06 04:44 | EKG12_ITS ---
Test Reason : Blood Pressure : / mmHG Vent. Rate : 061 BPM Atrial Rate : 061 BPM P-R Int : 142 ms QRS Dur : 084 ms QT Int : 430 ms P-R-T Axes : 000 058 049 degrees QTc Int : 432 ms Normal sinus rhythm Normal ECG When compared with ECG of 05-MAR-2022 11:48, MANUAL COMPARISON REQUIRED, DATA IS UNCONFIRMED Confirmed by TSERING MARTINEZ, RUBEN ([id number]), marketing editor RYLEE FERRERA ([id number]) on 03/06/2022 12:59:26 PM Referred By: LOREN Confirmed By:RUBEN CAGLE MD
--- NOTE | 2022-03-06 06:00 | EKG12_ITS ---
Test Reason : FALL Blood Pressure : / mmHG Vent. Rate : 053 BPM Atrial Rate : 053 BPM P-R Int : 156 ms QRS Dur : 082 ms QT Int : 470 ms P-R-T Axes : 082 075 069 degrees QTc Int : 441 ms Sinus bradycardia Otherwise normal ECG Confirmed by TSERING MARTINEZ, RUBEN ([id number]), continuity editor DHRUV WOODWARD ([id number]) on 03/06/2022 11:43:55 AM Referred By: MAGDALENA Confirmed By:RUBEN CAGLE MD
--- NOTE | 2022-03-06 06:07 | NURSING ---
spoke to pt son Elia Escamilla he has spoken with Dr. Estes about the surgery plan. pt son will be in this am to sign consent form for pt
[2022-03-06 06:08] LABS: Absolute Lymphocyte Count 1.66 X10^3/uL (0.83-4.51); Absolute Neutrophil Count 6.6 X10^3/uL (2.0-7.7); Basophil# 0.03 X10^3/uL; Basophil% 0.3 % (0-1); Eosinophil# 0.24 X10^3/uL; Eosinophils% 2.4 % (0-5); Hematocrit 35.6 % (40-54); Hemoglobin 11.8 g/dL (13.0-16.5); Lymphocyte # 1.66 X10^3/ul (0.83-4.51); Lymphocyte % 16.9 % (19-41); Mean Corp Hgb Conc 33.1 g/dL (32-36); Mean Corpuscular Hgb 31.1 pg (27.0-32.0); Mean Corpuscular Volume 93.9 fL (80-94); Mean Platelet Vol. 9.6 fl (6.2-12.0); Monocyte# 1.28 X10^3/uL; Monocyte% 13.1 % (0-10); NRBC Flagged by Analyzer 0 % (0-5); Neutrophil # 6.55 X10^3/uL (2.7-7.7); Neutrophil % 66.9 % (47-70); Platelet Count 146 K/mm3 (150-450); RBC Distribution Width SD 44.8 fl (35.1-43.9); Red Blood Count 3.79 M/mm3 (4.6-6.2); White Blood Count 9.8 K/mm3 (4.4-11.0)
[2022-03-06 06:45] LABS: ALB/GLOB Ratio 0.8 RATIO (0.9-2.4); AST(SGOT) 18 U/L (15-37); Alanine Aminotransfer ALT/SGPT 28 U/L (16-61); Albumin, Serum 2.7 g/dL (3.2-5.0); Alkaline Phosphatase 58 U/L (45-117); Anion Gap 4 (5-15); BUN 14 mg/dL (7-18); BUN/Creat Ratio 17.2 RATIO (10-20); Chloride 107 mmol/L (98-107); Creatinine, Serum 0.82 mg/dL (0.70-1.30); EST Glomerular Filtration Rate 97 mL/min (>60); Est Glom Filt Rate - Afr Amer 117 mL/min (>60); Estimated Creatinine Clearance 68.35 ml/min; Globulin 3.3 g/dL (2.2-4.2); Glucose 112 mg/dL (74-106); Potassium 3.9 mmol/L (3.5-5.1); Sodium Level 141 mmol/L (136-145); Thyroid Stim Hormone (TSH) 2.17 uIU/mL (0.358-3.74)
[2022-03-06 08:11] LABS: Magnesium 1.9 mg/dL (1.6-2.6)
[2022-03-06] MEDS: 0.9% Saline Lock 10 ML Syringe IV ×2 (08:29→22:29)
--- NOTE | 2022-03-06 12:31 | CON.PCM.OR_ITS ---
HPI Consult Data Date of Consult: 03/06/22 HPI Narrative HPI Narrative: JOAN CANALES, is a 81 M who presents to [facility] on 03/05/2022 as result of an unwitnessed fall at his residence of [facility]. Patient due to advanced stages of Alzheimer's is nonverbal, but awake and will follow simple commands. Full history is unobtainable due to his underlying baseline cognitive ability. Patient's son reports that he has had multiple recent falls. It is reported patient did strike his head in the fall without loss of conscious. A full trauma work-up was performed to the emergency department with a CAT scan of the brain which was read to be negative. [facility] Medical History (Updated 03/06/22 @ 02:39 by Jessenia Ibrahim) Alcoholism Cognitive and behavioral changes Dementia Dysthymic disorder GERD (gastroesophageal reflux disease) HTN (hypertension) Hypertension Unintended weight loss Medical History unable to obtain Home Medications finasteride 5 mg PO DAILY 06/06/21 [History Last Taken 03/05/22] acetaminophen 1,000 mg PO Q6H PRN PRN #0 tab 06/15/21 [Rx Last Taken Unknown] mirtazapine 7.5 mg PO QHS #0 tab 06/15/21 [Rx Last Taken 03/04/22] divalproex 375 mg PO QHS 08/05/21 [History Last Taken 03/04/22] hydroxyzine pamoate 25 mg PO BID 08/05/21 [History Last Taken 03/05/22] propranolol 30 mg PO BID 10/01/21 [History Last Taken 03/05/22] sertraline 100 mg PO QHS 10/01/21 [History Last Taken 03/05/22] divalproex 250 mg PO DAILY 03/05/22 [History Last Taken 03/05/22] ibuprofen 600 mg PO TID 03/05/22 [History Last Taken 03/05/22] loratadine 10 mg PO DAILY 03/05/22 [History Last Taken 03/05/22] Allergy/AdvReac Type Severity Reaction Status Date / Time memantine [From Namenda] Allergy Other Verified 02/10/22 03:27 mushroom Allergy Other Verified 02/10/22 03:27 rivastigmine [From Exelon] Allergy Other Verified 02/10/22 03:27 dairy AdvReac Other Uncoded 02/10/22 03:27 Family History (Updated 03/05/22 @ 15:[address] Kayley Ambrocio MD) Mother Diabetes Cancer Heart disease Father Cancer Hx Esophageal cancer. Family History unable to obtain Surgical History (Updated 03/05/22 @ 15:[address] Kayley Ambrocio MD) History of hand surgery Status post surgical removal of malignant neoplasm of skin Surgical History unable to obtain Social History (Updated 03/05/22 @ 15:[address] Kayley Ambrocio MD) household members: other details: Nursing facility Smoking Status: Never smoker alcohol intake: former details: Sober > 10 years. substance use type: does not use ROS ROS Narrative Review of systems were not obtainable due to the patient's nonverbal state. Vital Signs Vital Signs Vital Signs: 03/05/22 14:11 03/05/22 14:17 03/05/22 15:56 Temperature 0 F L 98.3 F Temperature Source Temporal Temporal Pulse Rate 60 Pulse Strength Respiratory Rate 16 14 Respiratory Effort Normal Respiratory Depth Normal Respiratory Pattern Normal Blood Pressure 137/73 H Blood Pressure Mean 94 Blood Pressure Source Blood Pressure Position Blood Pressure Location Pulse Ox 98 Oxygen Delivery Method Room Air 03/05/22 19:30 03/05/22 19:51 03/05/22 22:00 Temperature 98.1 F Temperature Source Axillary Pulse Rate 65 Pulse Strength Normal (2+) Respiratory Rate 16 Respiratory Effort Respiratory Depth Respiratory Pattern Blood Pressure 145/80 H Blood Pressure Mean 101 Blood Pressure Source Monitor Blood Pressure Position Semi-Fowlers Blood Pressure Location Left Leg Pulse Ox 96 Oxygen Delivery Method Room Air Room Air 03/05/22 23:24 03/06/22 04:00 03/06/22 08:11 Temperature 98.1 F 98.2 F 98.8 F Temperature Source Axillary Axillary Temporal Pulse Rate 73 75 65 Pulse Strength Respiratory Rate 18 16 16 Respiratory Effort Respiratory Depth Respiratory Pattern Blood Pressure 150/80 H 145/95 H 113/91 H Blood Pressure Mean 103 111 98 Blood Pressure Source Manual Monitor Monitor Blood Pressure Position Semi-Fowlers Semi-Fowlers Semi-Fowlers Blood Pressure Location Right Arm Right Arm Left Arm Pulse Ox 100 95 97 Oxygen Delivery Method Room Air Room Air Room Air 03/06/22 09:04 Temperature Temperature Source Pulse Rate Pulse Strength Respiratory Rate Respiratory Effort Respiratory Depth Respiratory Pattern Blood Pressure Blood Pressure Mean Blood Pressure Source Blood Pressure Position Blood Pressure Location Pulse Ox 98 Oxygen Delivery Method Room Air Weight Weight: 75 kg Body Mass Index (BMI) 25.0 Physical Exam Narrative Upon entering the room I found patient lying awake in bed. Patient was nonverbal. Patient had no signs of trauma to the face. Cranial nerves II throu gh XII are grossly intact. Patient had good motion of the upper extremities without obvious pain. No pain to palpation cervical thoracic spine. No signs of trauma to the anterior chest wall or abdomen. Patient good motion of the left hip knee and ankle without pain. No calf tenderness. Exam of the right hip there was diffuse ecchymosis, nonerythematous. Patient was exquisitely tender to palpation directly over the greater trochanteric region. Patient was extremely painful with any attempted motion of the right hip knee. He did have good plantar flexion dorsiflexion of the foot. No calf tenderness neurovascular is otherwise intact. Review of the 3 views of the right hip show patient does have a comminuted intertrochanteric fracture. There is slight valgus deformity of the humeral neck. Lab / Micro Data Result Diagrams: 03/06/22 05:50 03/06/22 05:50 Labs: Laboratory Results - last 24 hr 03/05/22 11:50: Valproic Acid 34 L 03/05/22 11:50: Sodium 142, Potassium 4.0, Chloride 106, Carbon Dioxide 32.0, Anion Gap 4 L, BUN 16, Creatinine 0.96, Estim Creat Clear Calc 58.39, Est GFR (MDRD) Af Amer 97, Est GFR (MDRD) Non-Af 80, BUN/Creatinine Ratio 16.8, Glucose 136 H, Calcium 8.6, Troponin I High Sens < 3 L 03/05/22 11:50: WBC 7.8, RBC 4.29 L, Hgb 13.3, Hct 40.2, MCV 93.7, MCH 31.0, MCHC 33.1, RDW Std Deviation 44.6 H, RDW Coeff of Katey 12.9, Plt Count 189, MPV 9.5, Immature Gran % (Auto) 0.400, Neut % (Auto) 54.8, Lymph % (Auto) 20.0, [place] % (Auto) 9.3, Eos % (Auto) 14.6 H, Baso % (Auto) 0.9, Absolute Neuts (auto) 4.3, Absolute Lymphs (auto) 1.55, Nucleated RBC % 0 03/05/22 11:50: Magnesium 1.6, Total Bilirubin 0.40, Direct Bilirubin 0.13, AST 24, ALT 34, Alkaline Phosphatase 60, Total Protein 6.4, Albumin 3.1 L, Globulin 3.3 03/05/22 13:35: Urine Opiates Screen NEGATIVE, Urine Methadone Screen NEGATIVE, Ur Barbiturates Screen NEGATIVE, Ur Phencyclidine Scrn NEGATIVE, Ur Amphetamines Screen NEGATIVE, MDMA (Ecstasy) Screen NEGATIVE, U Benzodiazepines Scrn NEGATIVE, Urine Cocaine Screen NEGATIVE, U Cannabinoids Screen NEGATIVE, Ur Drug Screen Comment 03/05/22 13:36: Urine Color Yellow, Urine Clarity Clear, Urine pH 6.5, Ur Specific [place] 1.015, Urine Protein Negative, Urine Glucose (UA) Normal, Urine Ketones Negative, Urine Occult Blood 10 H, Urine Nitrite Negative, Urine Bilirubin Negative, Urine Urobilinogen Normal, Ur Leukocyte Esterase Negative, Urine RBC 0 SEEN, Urine WBC 0 SEEN, Ur Squamous Epith Cells 0 SEEN, Urine Bacteria 0 SEEN, Urine Mucus 0 SEEN 03/06/22 05:50: WBC 9.8, RBC 3.79 L, Hgb 11.8 L, Hct 35.6 L, MCV 93.9, MCH 31.1, MCHC 33.1, RDW Std Deviation 44.8 H, RDW Coeff of Katey 13.0, Plt Count 146 L, MPV 9.6, Immature Gran % (Auto) 0.400, Neut % (Auto) 66.9, Lymph % (Auto) 16.9 L, [place] % (Auto) 13.1 H, Eos % (Auto) 2.4, Baso % (Auto) 0.3, Absolute Neuts (auto) 6.6, Absolute Lymphs (auto) 1.66, Nucleated RBC % 0 03/06/22 05:50: Sodium 141, Potassium 3.9, Chloride 107, Carbon Dioxide 30.0, Anion Gap 4 L, BUN 14, Creatinine 0.82, Estim Creat Clear Calc 68.35, Est GFR (MDRD) Af Amer 117, Est GFR (MDRD) Non-Af 97, BUN/Creatinine Ratio 17.2, Glucose 112 H, Calcium 8.0 L, Total Bilirubin 0.70, AST 18, ALT 28, Alkaline Phosphatase 58, Total Protein 6.0 L, Albumin 2.7 L, Globulin 3.3, Albumin/Globulin Ratio 0.8 L, TSH 2.17 03/06/22 05:50: Blood Type A POSITIVE, Antibody Screen NEGATIVE 03/06/22 05:50: Magnesium 1.9 Micro: Microbiology 03/06/22 00:25 Nasal Secretion SARS-CoV-2 Antigen (Rapid) - Final Radiology Impression Chest X-Ray 03/05/22 11:55 IMPRESSION: No acute pulmonary process Electronically Signed: Jeffry Beasley MD at 13:45 EDT , Hip/Pelvis X-Ray 03/05/22 11:55 IMPRESSION: Acute, comminuted, angulated intertrochanteric fracture of the right femur with varus angulation at the fracture site. Orthopedic surgery consultation recommended Age consistent right hip arthrosis without dislocation or subluxation Age consistent SI joint and left hip arthrosis No demonstrated pelvic fracture Electronically Signed: Jeffry Beasley MD at 13:44 EDT , Brain CT 03/05/22 12:55 IMPRESSION: Left posterior scalp hematoma. No acute abnormal intracranial finding. Electronically Signed: Reza Joel MD at 2:17 EDT , Brain MRI 03/05/22 14:16 IMPRESSION: No acute findings. Mild microvascular ischemic changes. Atrophy. Electronically Signed: Vanessa Hodge MD at 17:21 EDT Reading Location ID and State: [id number] / Tel , Service support , Assessment & Plan Assessment/Plan (1) Closed fracture of right hip: QUALIFIERS: Encounter type: initial encounter Qualified Code(s): S72.001A - Fracture of unspecified part of neck of right femur, initial encounter for closed fracture PLAN: 1. Patient is scheduled for ORIF of the right hip today by Dr. Jw Estes 2. Continue n.p.o. 3. Continue nonweightbearing 4. Continue ice to right hip 5. Medicine will continue to medically manage this patient 6. Continue all pain medications as prescribed Capacity Capacity Assessment Tool Can the patient make a choice & communicate that choice?: No Can the patient understand benefits, risks and alternatives?: No Can the patient make a logical, rational choice?: No Is the choice the patient makes consistent w/ their values?: Unable to Determine Is there an impending, emergent risk to the patient?: No Does the patient have an Advance Directive?: Yes Is there a Surrogate Available?: Yes i.e. HCPOA: Yes i.e. close relative (spouse, child, parent, sibling)?: Yes
--- NOTE | 2022-03-06 12:59 | PN.HOSP_ITS ---
Subjective Subjective Follow-up on right hip fracture/probable seizure activity: Patient was seen and examined. He was undergoing EEG at the time of exam. He appears confused. He is not able to answer questions appropriately. Not clear if this is chronic or new. Objective Data Objective Data Vital Signs: Vital Signs Temp Pulse Resp BP Pulse Ox 98.8 F 65 16 113/91 H 98 03/06/22 08:11 03/06/22 08:11 03/06/22 08:11 03/06/22 08:11 03/06/22 09:04 Oxygen Delivery Method Room Air Weight: 75 kg Body Mass Index (BMI) 25.0 Intake & Output: Intake and Output for Last 24 Hours 03/04/22 03/05/22 03/06/22 23:59 23:59 23:59 Intake Total 200 / 200 980 / 980 Output Total 400 / 400 Balance 200 / 0 580 / 580 Lab / Micro Data Result Diagrams: 03/06/22 05:50 03/06/22 05:50 Labs: Laboratory Results - last 24 hr 03/05/22 11:50: Valproic Acid 34 L 03/05/22 11:50: Sodium 142, Potassium 4.0, Chloride 106, Carbon Dioxide 32.0, Anion Gap 4 L, BUN 16, Creatinine 0.96, Estim Creat Clear Calc 58.39, Est GFR (MDRD) Af Amer 97, Est GFR (MDRD) Non-Af 80, BUN/Creatinine Ratio 16.8, Glucose 136 H, Calcium 8.6, Troponin I High Sens < 3 L 03/05/22 11:50: WBC 7.8, RBC 4.29 L, Hgb 13.3, Hct 40.2, MCV 93.7, MCH 31.0, MCHC 33.1, RDW Std Deviation 44.6 H, RDW Coeff of Katey 12.9, Plt Count 189, MPV 9.5, Immature Gran % (Auto) 0.400, Neut % (Auto) 54.8, Lymph % (Auto) 20.0, [place] % (Auto) 9.3, Eos % (Auto) 14.6 H, Baso % (Auto) 0.9, Absolute Neuts (auto) 4.3, Absolute Lymphs (auto) 1.55, Nucleated RBC % 0 03/05/22 11:50: Magnesium 1.6, Total Bilirubin 0.40, Direct Bilirubin 0.13, AST 24, ALT 34, Alkaline Phosphatase 60, Total Protein 6.4, Albumin 3.1 L, Globulin 3.3 03/05/22 13:35: Urine Opiates Screen NEGATIVE, Urine Methadone Screen NEGATIVE, Ur Barbiturates Screen NEGATIVE, Ur Phencyclidine Scrn NEGATIVE, Ur Amphetamines Screen NEGATIVE, MDMA (Ecstasy) Screen NEGATIVE, U Benzodiazepines Scrn NEGATIVE, Urine Cocaine Screen NEGATIVE, U Cannabinoids Screen NEGATIVE, Ur Drug Screen Comment 03/05/22 13:36: Urine Color Yellow, Urine Clarity Clear, Urine pH 6.5, Ur Specific [place] 1.015, Urine Protein Negative, Urine Glucose (UA) Normal, Urine Ketones Negative, Urine Occult Blood 10 H, Urine Nitrite Negative, Urine Bilirubin Negative, Urine Urobilinogen Normal, Ur Leukocyte Esterase Negative, Urine RBC 0 SEEN, Urine WBC 0 SEEN, Ur Squamous Epith Cells 0 SEEN, Urine Bacteria 0 SEEN, Urine Mucus 0 SEEN 03/06/22 05:50: WBC 9.8, RBC 3.79 L, Hgb 11.8 L, Hct 35.6 L, MCV 93.9, MCH 31.1, MCHC 33.1, RDW Std Deviation 44.8 H, RDW Coeff of Katey 13.0, Plt Count 146 L, MPV 9.6, Immature Gran % (Auto) 0.400, Neut % (Auto) 66.9, Lymph % (Auto) 16.9 L, [place] % (Auto) 13.1 H, Eos % (Auto) 2.4, Baso % (Auto) 0.3, Absolute Neuts (auto) 6.6, Absolute Lymphs (auto) 1.66, Nucleated RBC % 0 03/06/22 05:50: Sodium 141, Potassium 3.9, Chloride 107, Carbon Dioxide 30.0, Anion Gap 4 L, BUN 14, Creatinine 0.82, Estim Creat Clear Calc 68.35, Est GFR (MDRD) Af Amer 117, Est GFR (MDRD) Non-Af 97, BUN/Creatinine Ratio 17.2, Glucose 112 H, Calcium 8.0 L, Total Bilirubin 0.70, AST 18, ALT 28, Alkaline Phosphatase 58, Total Protein 6.0 L, Albumin 2.7 L, Globulin 3.3, Albumin/Globulin Ratio 0.8 L, TSH 2.17 03/06/22 05:50: Blood Type A POSITIVE, Antibody Screen NEGATIVE 03/06/22 05:50: Magnesium 1.9 Micro: Microbiology 03/06/22 00:25 Nasal Secretion SARS-CoV-2 Antigen (Rapid) - Final Radiography Diagnostic Testing: Radiology Impression Chest X-Ray 03/05/22 11:55 IMPRESSION: No acute pulmonary process Electronically Signed: Jeffry Beasley MD at 13:45 EDT , Hip/Pelvis X-Ray 03/05/22 11:55 IMPRESSION: Acute, comminuted, angulated intertrochanteric fracture of the right femur with varus angulation at the fracture site. Orthopedic surgery consultation recommended Age consistent right hip arthrosis without dislocation or subluxation Age consistent SI joint and left hip arthrosis No demonstrated pelvic fracture Electronically Signed: Jeffry Beasley MD at 13:44 EDT , Brain CT 03/05/22 12:55 IMPRESSION: Left posterior scalp hematoma. No acute abnormal intracranial finding. Electronically Signed: Reza Joel MD at 2:17 EDT , Brain MRI 03/05/22 14:16 IMPRESSION: No acute findings. Mild microvascular ischemic changes. Atrophy. Electronically Signed: Vanessa Hodge MD at 17:21 EDT Reading Location ID and State: [id number] / Tel , Service support , Physical Exam Narrative Physical exam: General: Alert, Oriented x3, Cooperative, No apparent distress HEENT: Atraumatic Oral: Moist Mucosa Neck: Supple Lungs: Clear to auscultation Cardiovascular: HS I+II, regular, no murmurs Abdomen: Bowel Sounds Present, Soft, Non Tender Extremities: No edema Skin: No rashes, No breakdown Neurological: Grossly intact Psych/Mental Status: Appropriate Assessment & Plan Assessment/Plan (1) Fall: QUALIFIERS: Encounter type: initial encounter Qualified Code(s): W19.XXXA - Unspecified fall, initial encounter (2) Closed fracture of right hip: QUALIFIERS: Encounter type: initial encounter Qualified Code(s): S72.001A - Fracture of unspecified part of neck of right femur, initial encounter for closed fracture PLAN: 1. Acute right intertrochanteric fracture, status post mechanical fall X-ray of the knee hip shows acute comminuted angulated intertrochanteric fracture of the right femur with varus angulation of the fracture site. Orthopedics is consulted, surgery planned for this afternoon 2. Questionable new-onset seizure, no obvious seizures seen since admission EEG is pending 3. Left posterior scalp laceration, stable 4. Alzheimer's dementia, with questionable behavioral disturbance 5. Hypertension, controlled, continue on propanolol 6. Anxiety/depression, continue on Zoloft 7. BPH, continue on Proscar 9. DVT PPx- SCDs Charges/Coding Visit Charges Inpatient E&M: 70180 Subs Hosp L2
--- NOTE | 2022-03-06 13:49 | CASEMGMT ---
Addendum entered by Magaly Ackerman 03/06/22 14:55: Pt son in to see pt. SW gave pt list of SNF providers including quality and resource use data. Son's first choice is TCU. Referral made. Pt to have surgery today. Bed availability is limited, pt will be reviewed after surgery for room availability and appropriateness for TCU. SILVIO Howe Addendum entered by Magaly Ackerman 03/06/22 14:33: Social Work YUKO made referral to Amaris at [facility] requesting an informational meeting be set with pt's son. Clinicals faxed. YUKO updated Denisa at [facility]. SILVIO Howe Original Note: Social Work Phone call placed to pt son Vincenzo Anderson. Vincenzo states pt lives in the memory care unit at [facility]. Per son, pt can speak some but it is very limited and he can express no cohesive thoughts. Pt has his days and nights flipped and 3-4 nights a week he wanders throughout the facility independently but wobbly. He does not use an assistive device. Then he sleeps most of the rest of the time. Pt has fallen 4 times in the past 60 days. Pt has lost weight. He can eat well but must be prompted to do so. Pt son feels pt would benefit from SNF stay at discharge. Son would like to speak with hospice about options as well. SW discussed SNF options including Medicare benefit for Skilled Care vs private pay extended care facility with hospice care. Vincenzo feels pt cannot return to [facility] at this time and will go to halfway. YUKO emailed a list of SNF providers including quality and resource use data and consistent with the patient's preferred geographic region, medical needs and insurance network. Pt son to review list and let SW know of their choice. Physician updated and agreeable to referral for hospice for information. SW discussed hospice options and pt son Vincenzo prefers [facility]. Referral made to [facility]. Plan: likely Group Home Facility skilled, vs hospice care SILVIO Howe
[2022-03-06] MEDS: Cefazolin 2 GM in 0.9% Normal Saline 100 ML IV (16:30)
--- NOTE | 2022-03-06 16:50 | RAD_ITS ---
EXAM: XR Right Hip With Pelvis When Performed, 2 or 3 Views CLINICAL INDICATION: 81 years old, Male; ORIF TECHNIQUE: Two or three views of the right hip with pelvis when performed. This report was created using [employer] report KSKT technology. COMPARISON: None. FINDINGS: Bones/joints: Intraoperative images demonstrate intramedullary shivam and pin fixation across an intertrochanteric fracture right hip. No destructive or sclerotic lesions. Note that overlapping bowel shadows may however obscure fine detail. Sacroiliac joint is unremarkable. No widening of the pubic symphysis. Soft tissues: Unremarkable. No soft tissue swelling or gas. RAD/Hip Min 2 Views (Portable) IMPRESSION: Intraoperative images demonstrate intramedullary shivam and pin fixation across an intertrochanteric fracture right hip. Electronically Signed: Chele Justice MD at 20:17 EDT ,
--- NOTE | 2022-03-06 17:27 | PCM.OP.BLANK ---
Problems Associated Problem List Diagnoses (1) Closed fracture of right hip: Operative Report Date of Procedure: 03/06/22 Preoperative diagnosis: Right hip displaced intertrochanteric fracture Postoperative diagnosis: Same Title of operation: Right hip open reduction internal fixation, intramedullary nail fixation, locked Surgeon: Dr. Jw Estes Graphic Illustrator: Lorie Cheatham PA-C Anesthesia: General, Dr Schuler Medications: Ancef 2 gm Indications for surgery: Patient is an 81-year-old male sustained a hip fracture yesterday. Patient and their family explained diagnosis and treatment options. Patient evaluated by the medical services. Patient did wish to have surgery. Appropriate informed consent obtained and signed. Findings: Patient had a displaced unstable intertrochanteric hip fracture. They underwent standard reduction, internal fixation using a [place] short gamma nail. X-rays taken throughout. delivery driver assistant, physician residential assistant, was utilized throughout the entire procedure. They were vital to the procedure from beginning to end. They help with patient transfer, patient padding and positioning, fracture reduction, maintenance of fracture reduction, internal fixation of implants, wound closure, bandage application, patient transfer. Without assistant gm of content & delivery, surgical time would have been significantly increased and surgical outcome could have been less optimal. Procedure: Patient was taken to the operating room. Placed under a general anesthetic and transferred to the operating table with the help of the residential assistant. With the help of the residential assistant patient was prepped and padded for surgery. Operative side foot was well-padded and placed in the traction boot. Uninjured lower extremity was abducted and flexed out of harms way. NATALIE hose and SCDs utilized. Fluoroscopy was brought in. With the help of the residential assistant and manipulation of the limb, reduction was nicely obtained as verified under AP lateral and oblique fluoroscopic images. . Operative hip/thigh was prepped padded draped in usual orthopedic sterile fashion for the procedure. Longitudinal incision was made just proximal to the greater trochanter. Taken through skin and subcutaneous tissue. Sharp awl was placed on the tip of the greater trochanter. Position verified under AP and lateral fluoroscopic images. This was then taken down inside the bone. Slightly bent ball-tipped guide shivam was then placed from the tip of the greater trochanter into the intra-medullary canal of the femur. Its position verified radiographically. Reamer was then done over the tip of this with the help of the residential assistant holding the soft tissue protector appropriately. Once reaming was done we placed the short 125? angle device over the guidepin. This was easily introduced. Guide shivam removed. Outrigger device was utilized to position a guidepin from the lateral cortex of the femur across the fracture site and into the femoral head in a good position centrally, as noted on AP lateral and oblique fluoroscopic images. This was measured. Appropriate reaming done. Appreciate length lag screw was placed from the lateral cortex of the femur into the femoral head. A small amount of the screw was noted to be protruding laterally as planned. No cartilage penetration of the femoral head noted on any x-ray. Fracture was then compressed with the outrigger device. Proximal cap screw was placed by the residential assistant seated down completely, confirmed, and then loosened one fourth turn. We then used the outrigger device to place distal cross locking screw under standard technique. This was confirmed to be of adequate length in good position on AP and lateral images. Outrigger device removed. Final set of AP and lateral proximal x-rays taken and saved. Incisions thoroughly irrigated. Closing by the residential assistant with deep 0 Vicryl, mid layer 0 Vicryl, inverted 2-0 Vicryl, skin miguel. Puncture wounds closed with inverted 2-0 Vicryl and miguel. Xeroform 4 x 4's ABD tape applied. Patient was awoken from their anesthetic, transferred back to their own bed with the help of the residential assistant and into recovery room in satisfactory condition. Patient will continue to be admitted to the hospital under the hospitalist service. Plan to use aspirin 81 mg twice a day for DVT prevention This note was generated with [employer] dictation software. It may contain incorrect words, spelling, and punctuation that were not noted in checking the note before signing.
[2022-03-06] MEDS: Lactated Ringers 1,000 ML 15 ML IV (22:09)
[2022-03-06] MEDS: Cefazolin 1 GM/50 ML BAG IV (22:10)
[2022-03-06] MEDS: Sertraline 100 MG Tablet PO (22:29)
[2022-03-06] MEDS: Donepezil HCl 10 MG Tablet PO (22:29)
[2022-03-06] MEDS: Divalproex Sodium 125 MG Tablet 375 MG PO (22:29)
[2022-03-06] MEDS: Mirtazapine 15 MG Tablet 7.5 MG PO (22:29)
[2022-03-06] MEDS: Propranolol 10 MG Tablet 30 MG PO (22:29)
[2022-03-06] MEDS: Aspirin 81 MG TAB.CHEW PO (22:30)
[2022-03-06] MEDS: Senna/Docusate Sodium 1 Tablet 2 TABLET PO (22:30)
[2022-03-06] MEDS: Loratadine 10 MG Tablet PO (22:30)
[2022-03-06] MEDS: Finasteride 5 MG Tablet PO (22:30)
[2022-03-06] MEDS: oxyCODONE 5 MG Tablet PO (22:30)
[2022-03-07] VITALS (9 sets, daily range): BP systolic 102–118; BP diastolic 57–74; PULSE 49–71; RESP 16–18; TEMP 36.3–37.7; O2SAT 91–97
[2022-03-07 05:04] LABS: Absolute Lymphocyte Count 0.93 X10^3/uL (0.83-4.51); Absolute Neutrophil Count 8.2 X10^3/uL (2.0-7.7); Basophil# 0.01 X10^3/uL; Basophil% 0.1 % (0-1); Hematocrit 34.5 % (40-54); Hemoglobin 11.3 g/dL (13.0-16.5); Lymphocyte # 0.93 X10^3/ul (0.83-4.51); Lymphocyte % 9.2 % (19-41); Mean Corp Hgb Conc 32.8 g/dL (32-36); Mean Corpuscular Hgb 30.5 pg (27.0-32.0); Mean Corpuscular Volume 93.2 fL (80-94); Mean Platelet Vol. 9.8 fl (6.2-12.0); Monocyte# 0.98 X10^3/uL; Monocyte% 9.7 % (0-10); NRBC Flagged by Analyzer 0 % (0-5); Neutrophil # 8.17 X10^3/uL (2.7-7.7); Neutrophil % 80.4 % (47-70); Platelet Count 152 K/mm3 (150-450); RBC Distribution Width SD 44.3 fl (35.1-43.9); White Blood Count 10.2 K/mm3 (4.4-11.0)
[2022-03-07 05:35] LABS: ALB/GLOB Ratio 0.8 RATIO (0.9-2.4); AST(SGOT) 17 U/L (15-37); Alanine Aminotransfer ALT/SGPT 23 U/L (16-61); Albumin, Serum 2.6 g/dL (3.2-5.0); Alkaline Phosphatase 56 U/L (45-117); Anion Gap 4 (5-15); BUN 13 mg/dL (7-18); BUN/Creat Ratio 16.5 RATIO (10-20); Calcium,Total 8.4 mg/dL (8.5-10.1); Chloride 105 mmol/L (98-107); Creatinine, Serum 0.79 mg/dL (0.70-1.30); EST Glomerular Filtration Rate 100 mL/min (>60); Est Glom Filt Rate - Afr Amer 121 mL/min (>60); Estimated Creatinine Clearance 59.82 ml/min; Globulin 3.3 g/dL (2.2-4.2); Glucose 129 mg/dL (74-106); Potassium 4.4 mmol/L (3.5-5.1); Protein, Total 5.9 g/dL (6.4-8.2); Sodium Level 139 mmol/L (136-145)
[2022-03-07] MEDS: Cefazolin 1 GM/50 ML BAG IV (06:00)
--- NOTE | 2022-03-07 07:59 | PN.ORTHO_ITS ---
Subjective Subjective Patient lying in bed sleeping. Patient was easy to awake. Patient nonverbal per his normal baseline, due to advance dementia. Objective Data Objective Data Vital Signs: Vital Signs Temp Pulse Resp BP Pulse Ox 99.1 F 53 L 16 108/72 91 03/07/22 03:00 03/07/22 05:49 03/07/22 03:00 03/07/22 03:00 03/07/22 03:00 Oxygen Delivery Method Room Air Weight: 74.4 kg Body Mass Index (BMI) 22.4 Intake & Output: Intake and Output for Last 24 Hours 03/05/22 03/06/22 03/07/22 23:59 23:59 23:59 Intake Total 200 / 200 1401.75 / 1401.75 50 / 50 Output Total 400 / 400 Balance 200 / 0 1001.75 / 1001.75 50 / 50 Lab / Micro Data Result Diagrams: 03/07/22 04:44 03/07/22 04:44 Labs: Laboratory Results - last 24 hr 03/06/22 05:50: Magnesium 1.9 03/07/22 04:44: WBC 10.2, RBC 3.70 L, Hgb 11.3 L, Hct 34.5 L, MCV 93.2, MCH 30.5, MCHC 32.8, RDW Std Deviation 44.3 H, RDW Coeff of Katey 13.0, Plt Count 152, MPV 9.8, Immature Gran % (Auto) 0.600, Neut % (Auto) 80.4 H, Lymph % (Auto) 9.2 L, [place] % (Auto) 9.7, Eos % (Auto) 0.0, Baso % (Auto) 0.1, Absolute Neuts (auto) 8.2 H, Absolute Lymphs (auto) 0.93, Nucleated RBC % 0 03/07/22 04:44: Sodium 139, Potassium 4.4, Chloride 105, Carbon Dioxide 30.0, Anion Gap 4 L, BUN 13, Creatinine 0.79, Estim Creat Clear Calc 59.82, Est GFR (MDRD) Af Amer 121, Est GFR (MDRD) Non-Af 100, BUN/Creatinine Ratio 16.5, Glucose 129 H, Calcium 8.4 L, Total Bilirubin 0.50, AST 17, ALT 23, Alkaline Phosphatase 56, Total Protein 5.9 L, Albumin 2.6 L, Globulin 3.3, Albumi n/Globulin Ratio 0.8 L Micro: Microbiology 03/06/22 00:25 Nasal Secretion SARS-CoV-2 Antigen (Rapid) - Final Radiography Diagnostic Testing: Radiology Impression Hip X-Ray 03/06/22 16:50 IMPRESSION: Intraoperative images demonstrate intramedullary shivam and pin fixation across an intertrochanteric fracture right hip. Electronically Signed: Chele Justice MD at 20:17 EDT , Physical Exam Narrative Exam I found patient easy to awake he was confused he did follow commands of moving his lower legs. Patient appeared to have good motion of the upper extremities. The dressing was clean dry intact. Patient had good strong distal pulses bilaterally lower extremities of the posterior tibial dorsalis pedis pulse. Patient had no obvious calf tenderness. Patient had motion of the right hip but with grimacing secondary to obvious discomfort. Labs and vitals were all reviewed noted medical record. Const General Appearance: cooperative Psych Memory / Cognition: cognition impaired Assessment & Plan Assessment/Plan (1) Closed fracture of right hip: QUALIFIERS: Encounter type: initial encounter Qualified Code(s): S72.001A - Fracture of unspecified part of neck of right femur, initial encounter for closed fracture PLAN: 1. Continue all pain medications as prescribed 2. Aspirin 81 mg 1 p.o. every 12 hours for postop DVT prophylaxis 3. Medicine will continue to manage medically. 4. Patient to be discharged to [facility] when cleared by medicine 5. [place] to be removed 03/20/2022 6. 50% weightbearing with walker and assistance 7. Patient to follow-up with Dr. Estes in 2 weeks, call office for appointment [phone]
--- NOTE | 2022-03-07 08:02 | PN.HOSP_ITS ---
Subjective Subjective Follow-up on right hip fracture/probable seizure activity: Patient was seen and examined. He underwent right hip open reduction internal fixation and intramedullary nail fixation. He was confused overnight. No acute events. He denied any new complaints. Objective Data Objective Data Vital Signs: Vital Signs Temp Pulse Resp BP Pulse Ox 99.1 F 53 L 16 108/72 91 03/07/22 03:00 03/07/22 05:49 03/07/22 03:00 03/07/22 03:00 03/07/22 03:00 Oxygen Delivery Method Room Air Weight: 74.4 kg Body Mass Index (BMI) 22.4 Intake & Output: Intake and Output for Last 24 Hours 03/05/22 03/06/22 03/07/22 23:59 23:59 23:59 Intake Total 200 / 200 1401.75 / 1401.75 50 / 50 Output Total 400 / 400 Balance 200 / 0 1001.75 / 1001.75 50 / 50 Lab / Micro Data Result Diagrams: 03/07/22 04:44 03/07/22 04:44 Labs: Laboratory Results - last 24 hr 03/06/22 05:50: Magnesium 1.9 03/07/22 04:44: WBC 10.2, RBC 3.70 L, Hgb 11.3 L, Hct 34.5 L, MCV 93.2, MCH 30.5, MCHC 32.8, RDW Std Deviation 44.3 H, RDW Coeff of Katey 13.0, Plt Count 152, MPV 9.8, Immature Gran % (Auto) 0.600, Neut % (Auto) 80.4 H, Lymph % (Auto) 9.2 L, [place] % (Auto) 9.7, Eos % (Auto) 0.0, Baso % (Auto) 0.1, Absolute Neuts (auto) 8.2 H, Absolute Lymphs (auto) 0.93, Nucleated RBC % 0 03/07/22 04:44: Sodium 139, Potassium 4.4, Chloride 105, Carbon Dioxide 30.0, Anion Gap 4 L, BUN 13, Creatinine 0.79, Estim Creat Clear Calc 59.82, Est GFR (MDRD) Af Amer 121, Est GFR (MDRD) Non-Af 100, BUN/Creatinine Ratio 16.5, Glucose 129 H, Calcium 8.4 L, Total Bilirubin 0.50, AST 17, ALT 23, Alkaline Phosphatase 56, Total Protein 5.9 L, Albumin 2.6 L, Globulin 3.3, Albumin/Globulin Ratio 0.8 L Micro: Microbiology 03/06/22 00:25 Nasal Secretion SARS-CoV-2 Antigen (Rapid) - Final Radiography Diagnostic Testing: Radiology Impression Hip X-Ray 03/06/22 16:50 IMPRESSION: Intraoperative images demonstrate intramedullary shivam and pin fixation across an intertrochanteric fracture right hip. Electronically Signed: Chele Justice MD at 20:17 EDT , Physical Exam Narrative Physical exam: General: Alert, Oriented x3, Cooperative, No apparent distress HEENT: Atraumatic Oral: Moist Mucosa Neck: Supple Lungs: Clear to auscultation Cardiovascular: HS I+II, regular, no murmurs Abdomen: Bowel Sounds Present, Soft, Non Tender Extremities: No edema Skin: No rashes, No breakdown Neurological: Grossly intact Psych/Mental Status: Appropriate Assessment & Plan Assessment/Plan (1) Fall: QUALIFIERS: Encounter type: initial encounter Qualified Code(s): W19.XXXA - Unspecified fall, initial encounter (2) Closed fracture of right hip: QUALIFIERS: Encounter type: initial encounter Qualified Code(s): S72.001A - Fracture of unspecified part of neck of right femur, initial encounter for closed fracture PLAN: 1. POD#1 s/p ORIF, intramedullary nailing for acute right intertroch anteric fracture, status post mechanical fall X-ray of the knee hip shows acute comminuted angulated intertrochanteric fracture of the right femur with varus angulation of the fracture site. Pain is fairly controlled Continue on scheduled Tylenol, oxycodone and morphine as needed 2. Syncope versus probable seizures, no obvious seizures seen since admission EEG mild to moderate diffuse encephalopathy. No epileptiform discharges or seizure patterns or lower tract signs. On valproic acid 375 mg twice daily, check valproic acid levels in a.m. Off donepezil Will check 2D echo, orthostatic vitals( lying to sitting) 3. Left posterior scalp laceration, stable 4. Alzheimer's dementia, with questionable behavioral disturbance 5. Hypertension, controlled, continue on propanolol 6. Anxiety/depression, continue on Zoloft 7. BPH, continue on Proscar 8. DVT PPx- SCDs 9. Disposition: DC to SNF when bed is ready; SW consulted Charges/Coding Visit Charges Inpatient E&M: 42419 Subs Hosp L2
[2022-03-07] MEDS: Divalproex Sodium 125 MG Tablet 375 MG PO ×2 (09:18→16:45)
[2022-03-07] MEDS: Aspirin 81 MG TAB.CHEW PO ×2 (09:18→20:28)
[2022-03-07] MEDS: Finasteride 5 MG Tablet PO (09:19)
[2022-03-07] MEDS: Senna/Docusate Sodium 1 Tablet 2 TABLET PO ×2 (09:19→20:30)
[2022-03-07] MEDS: Propranolol 10 MG Tablet 30 MG PO ×2 (09:19→20:28)
--- NOTE | 2022-03-07 11:45 | CASEMGMT ---
Addendum entered by Magaly Ackerman 03/07/22 13:27: Social Work Return call from pt son Vincenzo and SNF choices are as follows: [facility]. [facility] 2. [facility] 3. [facility] Call to Charo at [facility] and they do have beds available. Referral faxed. SW will await determination of acceptance. SILVIO Howe Original Note: Social Work SW spoke with Libby in TCU and they are not able to accept pt. Phone call to pt son Vincenzo and left requesting return call and other SNF choices. SILVIO Howe
--- NOTE | 2022-03-07 12:40 | NURSING ---
Patient found to have removed lower dressing to right thigh. Rodger intact, well approximated. Mepilex dressing applied and pajama pants placed on patient.
--- NOTE | 2022-03-07 13:30 | ECHOD_ITS ---
Reason For Study: Syncope Procedure This was a 2D Doppler, Color Flow transthoracic echocardiogram. Technically difficult study, technically limited study, technically limited views. Patient has cognitive/behavioral changes and is unable to hold still. Patient is also agitated. Exam performed portable in patient room. Left Ventricle Normal LV size. Left ventricular systolic function is normal. The estimated ejection fraction is 60 %. Stage 1 diastolic dysfunction. No regional wall motion abnormalities noted. Right Ventricle Normal RV size. Normal systolic function. Atria Normal left atrium. Normal right atrium. Mitral Valve Normal mitral valve. Tricuspid Valve Normal tricuspid valve. Aortic Valve The aortic valve is not well visualized. Pulmonic Valve The pulmonic valve is not well visualized. Great Vessels Normal aortic root. Pericardium/Pleural No pericardial effusion. MMode/2D Measurements & Calculations LVIDd: 4.2 cm IVSd: 0.99 cm LVOT diam: 2.1 cm LVIDs: 2.4 cm LVPWd: 1.1 cm LVOT area: 3.3 cm2 FS: 42.8 % LA dimension: 3.9 cm Time Measurements MV dec time: 0.37 sec Doppler Measurements & Calculations MV E max musa: 40.4 cm/sec Lat Peak E' Musa: 9.8 cm/sec Med Peak E' Musa: 5.6 cm/sec MV A max musa: 66.8 cm/sec E/E' lat: 4.1 E/E' med: 7.2 MV E/A: 0.60 MV V2 max: 84.7 cm/sec MV P1/2t max musa: 53.1 cm/sec Ao V2 max: 171.2 cm/sec MV max P.9 mmHg MV P1/2t: 109.3 msec Ao max P.7 mmHg MV V2 mean: 37.8 cm/sec MV mean P.68 mmHg MV dec slope: 142.2 cm/sec2 MERLIN(V,D): 1.5 cm2 MV V2 VTI: 19.4 cm MVA(P1/2t): 2.0 cm2 LV V1 max: 78.8 cm/sec LV V1 max P.5 mmHg ECHO/Echo Complete Interpretation Summary Normal LV size. Left ventricular systolic function is normal. The estimated ejection fraction is 60 %. Stage 1 diastolic dysfunction. Ordering Physician: Danette Rosario Referring Physician: Maritza Johnson M.D. Performed By: Pavel Huang RCS
[2022-03-07] MEDS: Acetaminophen 500 MG Tablet 1000 MG PO ×2 (14:40→21:56)
[2022-03-07] MEDS: oxyCODONE 5 MG Tablet PO ×2 (15:06→20:28)
--- NOTE | 2022-03-07 15:40 | CASEMGMT ---
Social Work Return call from the [facility] and they are unable to accept pt. Referral faxed to [facility] and message left with Karla in admissions. Pt son met with [facility] today and state that pt will go to a skilled facility and once skilled stay is complete, pt will sign up with hospice services. SW to notify hospice with discharge plan. SW informed pt son that [facility] cannot accept pt and referral to [facility]. Son states that if [facility] is unable to accept third choice is now [facility]. SW will continue to follow for discharge planning. SILVIO Howe
[2022-03-07] MEDS: Mirtazapine 15 MG Tablet 7.5 MG PO (20:29)
[2022-03-07] MEDS: Sertraline 100 MG Tablet PO (20:29)
[2022-03-08 02:00] VITALS: PULSE 55
[2022-03-08 02:30] VITALS: BP 155/79; PULSE 18; RESP 18; TEMP 36.9; O2SAT 94
[2022-03-08] MEDS: oxyCODONE 5 MG Tablet PO (02:43)
[2022-03-08 05:17] LABS: Absolute Lymphocyte Count 1.32 X10^3/uL (0.83-4.51); Absolute Neutrophil Count 5.9 X10^3/uL (2.0-7.7); Basophil# 0.06 X10^3/uL; Basophil% 0.7 % (0-1); Eosinophil# 0.38 X10^3/uL; Eosinophils% 4.3 % (0-5); Hematocrit 33.1 % (40-54); Hemoglobin 11.1 g/dL (13.0-16.5); Lymphocyte # 1.32 X10^3/ul (0.83-4.51); Lymphocyte % 15.1 % (19-41); Mean Corp Hgb Conc 33.5 g/dL (32-36); Mean Corpuscular Volume 95.4 fL (80-94); Mean Platelet Vol. 10.3 fl (6.2-12.0); Monocyte# 1.05 X10^3/uL; NRBC Flagged by Analyzer 0 % (0-5); Neutrophil # 5.89 X10^3/uL (2.7-7.7); Neutrophil % 67.2 % (47-70); Platelet Count 175 K/mm3 (150-450); RBC Distribution Width CV 13.2 % (11.6-14.6); RBC Distribution Width SD 46.2 fl (35.1-43.9); Red Blood Count 3.47 M/mm3 (4.6-6.2); White Blood Count 8.8 K/mm3 (4.4-11.0)
[2022-03-08 05:41] LABS: Valproic Acid (Depakene) Level 39 ug/mL (50-100)
[2022-03-08 05:42] LABS: ALB/GLOB Ratio 0.7 RATIO (0.9-2.4); AST(SGOT) 18 U/L (15-37); Alanine Aminotransfer ALT/SGPT 19 U/L (16-61); Albumin, Serum 2.5 g/dL (3.2-5.0); Alkaline Phosphatase 55 U/L (45-117); Anion Gap 3 (5-15); BUN 28 mg/dL (7-18); BUN/Creat Ratio 32.1 RATIO (10-20); Calcium,Total 8.2 mg/dL (8.5-10.1); Chloride 105 mmol/L (98-107); Creatinine, Serum 0.87 mg/dL (0.70-1.30); EST Glomerular Filtration Rate 89 mL/min (>60); Est Glom Filt Rate - Afr Amer 108 mL/min (>60); Estimated Creatinine Clearance 68.76 ml/min; Globulin 3.4 g/dL (2.2-4.2); Glucose 101 mg/dL (74-106); Potassium 4.3 mmol/L (3.5-5.1); Protein, Total 5.9 g/dL (6.4-8.2); Sodium Level 140 mmol/L (136-145)
[2022-03-08] MEDS: Acetaminophen 500 MG Tablet 1000 MG PO ×2 (05:44→14:29)
[2022-03-08 05:56] VITALS: PULSE 57
[2022-03-08 07:03] VITALS: PULSE 57
[2022-03-08 07:57] VITALS: BP 134/109; PULSE 62; RESP 18; TEMP 36.4; O2SAT 97
--- NOTE | 2022-03-08 09:51 | PN.HOSP_ITS ---
Objective Data Objective Data Vital Signs: Vital Signs Temp Pulse Resp BP Pulse Ox 97.6 F L 62 18 134/109 H 97 03/08/22 07:57 03/08/22 07:57 03/08/22 07:57 03/08/22 07:57 03/08/22 07:57 Oxygen Delivery Method Room Air Weight: 73.7 kg Body Mass Index (BMI) 22.4 Intake & Output: Intake and Output for Last 24 Hours 03/06/22 03/07/22 03/08/22 23:59 23:59 23:59 Intake Total 1401.75 / 1401.75 50 / 170 180 / 180 Output Total 400 / 400 Balance 1001.75 / 1001.75 50 / 170 180 / 180 Lab / Micro Data Result Diagrams: 03/08/22 04:38 03/08/22 04:38 Labs: Laboratory Results - last 24 hr 03/08/22 04:38: WBC 8.8, RBC 3.47 L, Hgb 11.1 L, Hct 33.1 L, MCV 95.4 H, MCH 32.0, MCHC 33.5, RDW Std Deviation 46.2 H, RDW Coeff of Katey 13.2, Plt Count 175, MPV 10.3, Immature Gran % (Auto) 0.700, Neut % (Auto) 67.2, Lymph % (Auto) 15.1 L, [place] % (Auto) 12.0 H, Eos % (Auto) 4.3, Baso % (Auto) 0.7, Absolute Neuts (auto) 5.9, Absolute Lymphs (auto) 1.32, Nucleated RBC % 0 03/08/22 04:38: Sodium 140, Potassium 4.3, Chloride 105, Carbon Dioxide 32.0, Anion Gap 3 L, BUN 28 H, Creatinine 0.87, Estim Creat Clear Calc 68.76, Est GFR (MDRD) Af Amer 108, Est GFR (MDRD) Non-Af 89, BUN/Creatinine Ratio 32.1 H, Glucose 101, Calcium 8.2 L, Total Bilirubin 0.40, AST 18, ALT 19, Alkaline Phosphatase 55, Total Protein 5.9 L, Albumin 2.5 L, Globulin 3.4, Albumin/Globulin Ratio 0.7 L 03/08/22 04:38: Valproic Acid 39 L Micro: Microbiology 03/06/22 00:25 Nasal Secretion SARS-CoV-2 Antigen (Rapid) - Final Radiography Diagnostic Testing: Radiology Impression Echocardiogram 03/07/22 13:30 Interpretation Summary Normal LV size. Left ventricular systolic function is normal. The estimated ejection fraction is 60 %. Stage 1 diastolic dysfunction. Ordering Physician: Danette Rosario Referring Physician: Maritza Johnson M.D. Performed By: Pavel Huang RCS
--- NOTE | 2022-03-08 10:09 | CASEMGMT ---
Addendum entered by Magaly Ackerman 03/08/22 13:41: Social Work Return call from Dominga at [facility] and they are able to accept pt today. Physician notified and plans to discharge today. SW met with pt's son and informed that [facility] cannot accept but [facility] can and pt to be d/c today. Son agreeable and plans for pt to go to facility skilled and will followup with hospice when skilled stay is complete. [facility] at [facility] with date and destination of discharge for followup services. 7000 completed in [facility] and faxed along with orders to [facility]. Transportation arranged with [facility] for 1350 pickup via [facility]. Nursing, pt son and [facility] made aware of discharge orders. Disposition: [facility], Skilled level of care under convalescent stay. SILVIO Howe Original Note: Social Work SW placed call to Karla and [facility] and they are unable to accept pt. Phone call to [facility] and spoke with Charo. They do have beds available. Referral faxed and Charo updated that pt is ready for discharge today. SW will await determination of acceptance. SILVIO Howe
[2022-03-08] MEDS: Senna/Docusate Sodium 1 Tablet 2 TABLET PO (11:43)
[2022-03-08] MEDS: Finasteride 5 MG Tablet PO (11:43)
[2022-03-08] MEDS: Aspirin 81 MG TAB.CHEW PO (11:43)
[2022-03-08] MEDS: Divalproex Sodium 125 MG Tablet 375 MG PO (11:43)
[2022-03-08] MEDS: Propranolol 10 MG Tablet 30 MG PO (11:43)
--- NOTE | 2022-03-08 12:17 | PCM.TXEXTCAR ---
Diet 03/07/22 00:28 Diet: Regular - General Food consistency:: Regular Liquid Consistency:: Regular/Thin Dietary Modifications:: Lactose Controlled Type of Dietary Supplement:: Ensure Enlive Is pt able to select menu?: No Diet Comments: 240 ml ensure enlive BID w/ breakfast and dinner Routine Orders/Code Status Enema Frequency: Daily PRN Suppository Type: Dulcolax 10mg Suppository Frequency: Daily PRN Routine Lab Work: CBC (within 3 days) and BMP (within 3 days) Code [facility] Wound(s) RIGHT HIP: Wound Type: Surgical Incision Therapies Weight Bearing: Partial weight bearing Extremity Affected:: Right Lower Physical Therapy: Eval and Treat Occupational Therapy: Eval and Treat Problem/Diagnosis (1) Fall: Status: Acute (2) Closed fracture of right hip: Status: Acute Allergies/Procedures Done in Hospital Allergies lactose Allergy (Verified 03/07/22 14:45) Other memantine [From Namenda] Allergy (Verified 02/10/22 03:27) Other mushroom Allergy (Verified 02/10/22 03:27) Other rivastigmine [From Exelon] Allergy (Verified 02/10/22 03:27) Other Procedures: - (03/06/22 - Right hip open reduction internal fixation, intramedullary nail fixation, locked) Type of Care/Length of Stay Estimated LOS: Convalescent Care Less Than 30 days Type of Care Needed: Skilled Rehab Potential: Fair Prognosis: Fair Additional Orders/Day of Discharge Day of Discharge: 03/08/22 Dietary and Speech Recommendations Dietitian Recommendations/Changes: Continue Regular diet. Ensure Enlive BID (240mL) with breakfast and dinner. Discharge Plan Admission Admit Date/Time: 03/05/22 14:19 Primary Reason for Your Visit: Acute right hip fracture Attending Provider: Danette Rosario Primary Care Provider: Maritza Johnson Consulting Providers: Kayley Ambrocio ; Jaz Guillory ; Charli Gonzales ; Veronica Hummel ; Kristen Reese ; Hawa Qiu ; Tangela Mortensen [employer]HER DIETARY SERVICE MANAGER ; Jw Estes Instructions Additional Instructions / Restrictions: [place] to be removed 03/20/2022 50% weightbearing with walker and assistance Patient to follow-up with Dr. Estes in 2 weeks, call office for appointment [phone] Discharge Orders/Prescriptions Prescriptions: New acetaminophen 500 mg Tablet 1,000 mg PO TID Qty: 0 RF: 0 divalproex 125 mg Tablet,Delayed Release (Dr/Ec) 375 mg PO BIDCM Qty: 0 RF: 0 aspirin 81 mg Tablet,Chewable 81 mg PO BID Qty: 0 RF: 0 Continued finasteride 5 mg tablet 5 mg PO DAILY RF: 0 mirtazapine 15 mg Tablet 7.5 mg PO QHS Qty: 0 RF: 0 sertraline 100 mg tablet 100 mg PO QHS RF: 0 propranolol 10 mg tablet 30 mg PO BID RF: 0 Discontinued acetaminophen 500 mg Tablet 1,000 mg PO Q6H PRN PRN (Reason: Pain Score 1-10) Qty: 0 RF: 0 divalproex 125 mg tablet,delayed release (DR/EC) 375 mg PO QHS RF: 0 hydroxyzine pamoate 25 mg capsule 25 mg PO BID RF: 0 divalproex 250 mg tablet,delayed release (DR/EC) 250 mg PO DAILY RF: 0 ibuprofen 600 mg tablet 600 mg PO TID RF: 0 loratadine 10 mg Tablet 10 mg PO DAILY RF: 0 Referrals / Follow Up: Jw Estes MD [STAFF PHYSICIAN] - Within 2 Weeks (call office for appointment [phone] ) Maritza Johnson MD [Primary Care Provider] - Within 2 Weeks Disposition Disposition (needs filled in before D/C Order can be placed): [facility]
--- NOTE | 2022-03-08 12:25 | DS.PCM_ITS ---
Providers Date of Admission: 03/05/22 Date of Discharge: 03/08/22 Primary Care Physician: Maritza Johnson MD Consultations 03/05/22 14:16 Consult: Orthopedics Routine Consulting Provider: Jw Estes Reason for Consult: R hip fracture s/p fall EMERGENT Consult: No Notified: Yes Date Notified: 03/05/22 Time Notified: 14:18 Method of Notification: per ED. 03/05/22 15:11 Consult: Hospice / Palliative Care Routine Consulting Provider: [facility] Reason for Consult: Dementia, Fall, Hip fracture, family interested in Hospice discussions. EMERGENT Consult: No Notified: Yes Date Notified: 03/05/22 Time Notified: 15:11 Method of Notification: Answering Service Comments:: was noted per social work lecturer Magaly Reason For Visit: R HIP FRACTURE, POSS SEIZURE Diagnosis Discharge Diagnosis (1) Fall: Status: Acute Code(s): W19.XXXA - Unspecified fall, initial encounter Qualifiers: Encounter type: initial encounter Qualified Code(s): W19.XXXA - Unspecified fall, initial encounter (2) Closed fracture of right hip: Status: Acute Code(s): S72.001A - Fracture of unspecified part of neck of right femur, initial encounter for closed fracture Qualifiers: Encounter type: initial encounter Qualified Code(s): S72.001A - Fracture of unspecified part of neck of right femur, initial encounter for closed fracture Medications at Discharge Home Medications finasteride 5 mg PO DAILY 06/06/21 mirtazapine 7.5 mg PO QHS #0 tab 06/15/21 propranolol 30 mg PO BID 10/01/21 sertraline 100 mg PO QHS 10/01/21 acetaminophen 1,000 mg PO TID #0 tab 03/08/22 aspirin 81 mg PO BID #0 tab 03/08/22 divalproex 375 mg PO BIDCM #0 tab 03/08/22 Hospital Course Operations total hip replacement Summary of Care Provided Minutes Spent on Discharge: 40 Hospital Course: 81-year-old male with past medical history of end-stage Alzheimer's dementia with behavioral disturbances, resident in the memory unit, who comes in with recurrent falls and loss of consciousness. Patient had had recurrent falls that started 6 months ago. Patient lost his balance and fell backwards. During the most recent fall, patient had a loss of consciousness. He had loss of bladder and bowel function. He had a fracture of his right hip. MRI of the brain showed no acute process. EEG showed no epileptiform activity. Patient underwent total hip open reduction internal fixation as well as IM nailing on 03/06/22. Teleneurology were also consulted and recommended the patient be started on valproic acid. He was started on valproic acid 375 mg p.o. twice daily. He had a 2D-ECHO done that showed EF of 60%, stage I diastolic dysfunction. His donepezil was discontinued. Patient was seen and skilled for discharge for subacute rehab. On the day of discharge, patient was seen and examined. No new complaints. Physical Exam Narrative Physical exam: General: Alert, Oriented to self, Cooperative, No apparent distress HEENT: Atraumatic Oral: Moist Mucosa Neck: Supple Lungs:diminished to auscultation Cardiovascular: HS I+II, regular, no murmurs Abdomen: Bowel Sounds Present, Soft, Non Tender Extremities: No edema, tenderness over the right hip Skin: No rashes, No breakdown Neurological: Grossly intact Psych/Mental Status: Appropriate Weight / BMI Weight Weight: 73.7 kg Body Mass Index (BMI) 22.4 ABG / Lab / Microbiology Data Result Diagrams: 03/08/22 04:38 03/08/22 04:38 Laboratory: Laboratory Results - last 24 hr 03/08/22 04:38: WBC 8.8, RBC 3.47 L, Hgb 11.1 L, Hct 33.1 L, MCV 95.4 H, MCH 32.0, MCHC 33.5, RDW Std Deviation 46.2 H, RDW Coeff of Katey 13.2, Plt Count 175, MPV 10.3, Immature Gran % (Auto) 0.700, Neut % (Auto) 67.2, Lymph % (Auto) 15.1 L, [place] % (Auto) 12.0 H, Eos % (Auto) 4.3, Baso % (Auto) 0.7, Absolute Neuts (auto) 5.9, Absolute Lymphs (auto) 1.32, Nucleated RBC % 0 03/08/22 04:38: Sodium 140, Potassium 4.3, Chloride 105, Carbon Dioxide 32.0, Anion Gap 3 L, BUN 28 H, Creatinine 0.87, Estim Creat Clear Calc 68.76, Est GFR (MDRD) Af Amer 108, Est GFR (MDRD) Non-Af 89, BUN/Creatinine Ratio 32.1 H, Glucose 101, Calcium 8.2 L, Total Bilirubin 0.40, AST 18, ALT 19, Alkaline Phosphatase 55, Total Protein 5.9 L, Albumin 2.5 L, Globulin 3.4, Albumin/Globulin Ratio 0.7 L 03/08/22 04:38: Valproic Acid 39 L Microbiology: Microbiology 03/06/22 00:25 Nasal Secretion SARS-CoV-2 Antigen (Rapid) - Final Radiography Diagnostic Testing: Radiology Impression Echocardiogram 03/07/22 13:30 Interpretation Summary Normal LV size. Left ventricular systolic function is normal. The estimated ejection fraction is 60 %. Stage 1 diastolic dysfunction. Ordering Physician: Danette Rosario Referring Physician: Maritza Johnson M.D. Performed By: Pavel Huang RCS D/C Instructions Discharge Diet: No restrictions Meaningful Use Info Meaningful Use Diagnoses (Choose all that apply): None applicable Discharge Plan Admission Admit Date/Time: 03/05/22 14:19 Primary Reason for Your Visit: Acute right hip fracture Attending Provider: Danette Rosario Primary Care Provider: Maritza Johnson Consulting Providers: Kayley Ambrocio ; Jaz Guillory ; Charli Gonzales ; Veronica Hummel ; Kristen Reese ; Hawa Qiu ; Tangela Mortensen MEDICAL PSYCHOTHERAPIST ; Jw Estes Instructions Additional Instructions / Restrictions: [place] to be removed 03/20/2022 50% weightbearing with walker and assistance Patient to follow-up with Dr. Estes in 2 weeks, call office for appointment [phone] Discharge Orders/Prescriptions Prescriptions: New acetaminophen 500 mg Tablet 1,000 mg PO TID Qty: 0 RF: 0 divalproex 125 mg Tablet,Delayed Release (Dr/Ec) 375 mg PO BIDCM Qty: 0 RF: 0 aspirin 81 mg Tablet,Chewable 81 mg PO BID Qty: 0 RF: 0 Continued finasteride 5 mg tablet 5 mg PO DAILY RF: 0 mirtazapine 15 mg Tablet 7.5 mg PO QHS Qty: 0 RF: 0 sertraline 100 mg tablet 100 mg PO QHS RF: 0 propranolol 10 mg tablet 30 mg PO BID RF: 0 Discontinued acetaminophen 500 mg Tablet 1,000 mg PO Q6H PRN PRN (Reason: Pain Score 1-10) Qty: 0 RF: 0 divalproex 125 mg tablet,delayed release (DR/EC) 375 mg PO QHS RF: 0 hydroxyzine pamoate 25 mg capsule 25 mg PO BID RF: 0 divalproex 250 mg tablet,delayed release (DR/EC) 250 mg PO DAILY RF: 0 ibuprofen 600 mg tablet 600 mg PO TID RF: 0 loratadine 10 mg Tablet 10 mg PO DAILY RF: 0 Referrals / Follow Up: Jw Estes MD [STAFF PHYSICIAN] - Within 2 Weeks (call office for appointment [phone] ) Maritza Johnson MD [Primary Care Provider] - Within 2 Weeks Disposition Disposition (needs filled in before D/C Order can be placed): [facility] Charges/Coding Visit Charges Inpatient E&M: 84321 Disch Hosp
[2022-03-08 15:15] VITALS: BP 99/55; PULSE 70; RESP 16; TEMP 36.7; O2SAT 97
--- NOTE | 2022-03-08 16:17 | NURSING ---
Horace Mcghee states she will have the nurse call back for report when she is available.
== END 2022-03-08 15:55 | disposition skilled nursing facility (03) | DRG 481 ==
LOC: ED 14:16 → MS3 14:45
PROVIDERS: Emergency Medicine; Orthopaedic Surgery; Admitting Provider Family Medicine; Emergency Provider Emergency Medicine; PCP Family Medicine; Visit Provider Internal Medicine
PROC: 0QS606Z Reposition Right Upper Femur with Intramedullary Internal Fixation Device, Open Approach (ICD-10-PCS; CPT 27245; principal; 2022-03-06 15:30)
DX: S72.141A Displaced intertrochanteric fracture of right femur, initial encounter for closed fracture (principal); F02.81 Dementia in other diseases classified elsewhere, unspecified severity, with behavioral disturbance; G30.1 Alzheimer's disease with late onset; R56.9 Unspecified convulsions; F31.9 Bipolar disorder, unspecified; F10.21 Alcohol dependence, in remission; S00.03XA Contusion of scalp, initial encounter; W01.0XXA Fall on same level from slipping, tripping and stumbling without subsequent striking against object, initial encounter; I10 Essential (primary) hypertension; E78.5 Hyperlipidemia, unspecified; F41.9 Anxiety disorder, unspecified; F34.1 Dysthymic disorder; N40.0 Benign prostatic hyperplasia without lower urinary tract symptoms; R29.6 Repeated falls; R53.81 Other malaise; R55 Syncope and collapse; Z66 Do not resuscitate; Z51.5 Encounter for palliative care; Z79.82 Long term (current) use of aspirin; Z79.899 Other long term (current) drug therapy
CPT/HCPCS: 36415; 70450; 70551; 71045; 73502; 76000; 80048; 80053; 80076; 80164; 80307; 81001; 83735; 84443; 84484; 85025; 86850; 86900; 86901; 87426; 93005; 93306; 95819; 97110; 97162; 97167; 97530; 97535; 99251; 99283; 99284; 99285; C1713; J7030; J7050; J7120; P9612; A4216; G0463; J2405